=== PATIENT | male | born 1960 | race African-American/Black ===

== ENCOUNTER 2019-02-09 07:21 | Inpatient (IN) | payer OTHER ==
[~2019-02-09] VITALS: Ht 175.3 cm; Wt 113.2 kg
[~2019-02-09 07:21] MED LIST: CAPT12.52 PO; CARV6.2551 PO; FURO20TA3 PO
[2019-02-09 08:21] LABS: Basophils # (auto) 0 uL; Basophils % (auto) 0.8 % (0.0-2.0); Eosinophils # (auto) 0.3 uL; Eosinophils % (auto) 5.6 % (0.0-7.0); Hematocrit 42.7 % (41.0-53.0); Hemoglobin 14.1 g/dL (13.5-17.5); Lymphocytes % (auto) 19.4 % (10.0-50.0); Mean Corpuscular Hemoglobin 28.2 pg (28.0-32.0); Mean Corpuscular Hgb Conc. 33.1 g/dL (32.0-36.0); Mean Corpuscular Volume 85.3 fL (80.0-100.0); Monocytes # (auto) 0.5 uL; Monocytes % (auto) 10.9 % (0.0-12.0); Neutrophils # (auto) 3.1 uL; Neutrophils % (auto) 63.3 % (37.0-80.0); Platelet Count (auto) 269 10^3/uL (140-450); Red Blood Cells 5.01 10^6/uL (4.5-5.90); Red Cell Distribution Width 13.8 % (11.8-14.3); White Blood Cell 4.9 10^3/uL (4.4-10.8)
[2019-02-09 08:36] LABS: INR 0.96 (0.9-1.15); Partial Thromboplastin Time 21.6 sec (23.78-33.04); Prothrombin Time 10.3 sec (9.27-12.13)
[2019-02-09 08:41] LABS: Albumin 3.6 g/dL (3.4-5.0); BUN/Creatinine Ratio 13.9; Magnesium 2.2 mg/dL (1.6-2.6); Potassium 4.3 mmol/L (3.5-5.1)
[2019-02-09 08:46] LABS: Bilirubin, Total 0.4 mg/dL (0.2-1.0); Total Protein 7.9 g/dL (6.4-8.2)
[2019-02-09] MEDS ORDERED: SODIUM CHLORIDE 0.9% 1,000 ML IV ONE (08:46)
[2019-02-09] MEDS ORDERED: ASPirin 81 mg TAB PO ONE (09:00)
[2019-02-09] MEDS ORDERED: ONDANSETRON HCL 4 MG/2 ML VIAL IV ONE (10:30)
[2019-02-09] MEDS ORDERED: MORPHINE SULF INJ 2 MG/ML SYRINGE 1ML IV ONE (10:30)
[2019-02-09] MEDS ORDERED: IOHEXOL 350 MG/ML 100ML IJ ONE (11:31)
[2019-02-09] MEDS ORDERED: NITROGLYCERIN 0.4 MG SL TAB SL PRN (12:30)
[2019-02-09] MEDS ORDERED: ONDANSETRON HCL 4 MG/2 ML VIAL IV PRN (12:30)
[2019-02-09] MEDS ORDERED: HYDROcodone-ACET 5/325MG TAB PO PRN (12:30)
[2019-02-09] MEDS ORDERED: ACETAMINOPHEN 500 MG TAB PO PRN (12:30)
[2019-02-09] MEDS ORDERED: ENOXAPARIN SOD 100 MG/1 ML SYRINGE SC ONE (12:30)
[2019-02-09] MEDS ORDERED: NITROGLYCERIN 0.4MG/HR TOPICAL PATCH TD ONE (12:30)
[2019-02-09] MEDS ORDERED: MORPHINE SULF INJ 2 MG/ML SYRINGE 1ML IV PRN (12:30)
[2019-02-09] MEDS ORDERED: hydrALAZINE HCL 20 MG/ML VL IV PRN (12:30)
[2019-02-09 14:00] VITALS: BP 126/85
--- NOTE | 2019-02-09 14:00 | NUR ---
Telemetry admit from ER SANAOTILIA admitted to Telemetry unit after SBAR received. Patient oriented to MAURA IBARRA, primary RN, unit, room, bed, and unit policies regarding patient care and visiting hours. Patient now on continuous telemetry monitoring, tele box # 25 and telemetry reading on arrival to unit is . Patient placed on bedside oxygen, weighed by bed scale and encouraged to call if they need something. All questions and concerns addressed, patient verbalized understanding.
--- NOTE | 2019-02-09 14:05 | NUR ---
Shahbaz ENRIQUE, made aware of Troponin 1.05. Will continue to monitor.
[2019-02-09] MEDS ORDERED: NITR0.4S29 SL (14:45)
[2019-02-09] MEDS ORDERED: SIMV-13 PO (14:45)
[2019-02-09] MEDS ORDERED: CLOP75TA28 PO (14:45)
[2019-02-09] MEDS ORDERED: SERT-274 PO (14:45)
[2019-02-09] MEDS ORDERED: CAR125T PO (14:45)
[2019-02-09] MEDS ORDERED: ASPI81TA27 PO (14:45)
[2019-02-09] MEDS ORDERED: LISI-275 PO (14:45)
[2019-02-09 17:07] VITALS: BP 97/49
[2019-02-09 17:43] VITALS: BP 97/49
--- NOTE | 2019-02-09 19:55 | NUR ---
assumed care, pt. awake, pt. on cpap, no c/o pain, no sob.
[2019-02-09] MEDS: MORPHINE SULF INJ 2 MG/ML SYRINGE 1ML IV PRN (20:47)
[2019-02-09] MEDS: ATORVASTATIN 20 MG TAB PO SCH (21:20)
[2019-02-09] MEDS: CARVEDILOL 3.125 MG TAB PO SCH (21:20)
[2019-02-09 22:00] VITALS: BP 102/59
[2019-02-10] MEDS: MORPHINE SULF INJ 2 MG/ML SYRINGE 1ML IV PRN (03:57)
[2019-02-10 05:14] LABS: Basophils # (auto) 0 uL; Basophils % (auto) 0.6 % (0.0-2.0); Eosinophils # (auto) 0.2 uL; Eosinophils % (auto) 4.5 % (0.0-7.0); Hematocrit 41.5 % (41.0-53.0); Hemoglobin 14.1 g/dL (13.5-17.5); Lymphocytes # (auto) 0.9 uL; Lymphocytes % (auto) 17.3 % (10.0-50.0); Mean Corpuscular Hgb Conc. 33.9 g/dL (32.0-36.0); Mean Corpuscular Volume 85.4 fL (80.0-100.0); Monocytes # (auto) 0.5 uL; Monocytes % (auto) 9.2 % (0.0-12.0); Neutrophils # (auto) 3.4 uL; Neutrophils % (auto) 68.4 % (37.0-80.0); Platelet Count (auto) 276 10^3/uL (140-450); Red Blood Cells 4.86 10^6/uL (4.5-5.90); Red Cell Distribution Width 13.7 % (11.8-14.3)
[2019-02-10 05:29] LABS: INR 0.94 (0.9-1.15); Partial Thromboplastin Time 25.8 sec (23.64-32.05); Prothrombin Time 10.2 sec (9.06-12.60)
[2019-02-10 05:39] LABS: Calcium 8.9 mg/dL (8.5-10.1); Potassium 4.3 mmol/L (3.5-5.1)
[2019-02-10 05:45] LABS: BUN/Creatinine Ratio 14.8
[2019-02-10 06:16] VITALS: BP 118/83
--- NOTE | 2019-02-10 07:20 | NUR ---
Opening Shift Note Assumed care of patient, awake and alert. No S/S of distress/SOB or pain. Instructed on POC and to call for assist PRN, will continue to monitor for changes Q1hr and PRN.
[2019-02-10 08:00] VITALS: BP 100/50
--- NOTE | 2019-02-10 08:15 | NUR ---
PT FOUND OFF CPAP AND ON RA. PT IS AWAKE, ALERT AND ORIENTED. 95% O2 SATS, HR 63 BPM, RR18, BS ARE CLEAR TO AUSCULTATION. SKIN IS INTACT.PT ESTATES HE USES CPAP AT HOME. NO SOB OR ANY OTHER RESPIRATORY DISTRESS NOTED. WILL CONTINUE TO MONITOR PT.
[2019-02-10 09:00] VITALS: BP 100/50
[2019-02-10] MEDS: CARVEDILOL 3.125 MG TAB PO SCH ×2 (10:00→21:14)
[2019-02-10] MEDS: LISINOPRIL 10 MG TAB PO SCH (10:00)
[2019-02-10] MEDS: ASPirin-EC 81 mg tab PO SCH (10:11)
[2019-02-10] MEDS: CLOPIDOGREL BISULFATE 75 MG TAB PO SCH (10:11)
[2019-02-10] MEDS: NITROGLYCERIN 0.4MG/HR TOPICAL PATCH TD SCH (10:20)
--- NOTE | 2019-02-10 11:50 | NUR ---
PT'S OWN HOME CPAP , AT BEDSIDE. PT'S FAMILY BROUGHT CPAP FROM HOME. PT'S STATES SHE WAS TOLD TO "BRING CPAP FROM HOME BY THREE DIFFERENT NURSES." PT WAS INFORMED HE CAN NOT USE ANY EQUIPMENT FROM HOME. PT'S REQUESTING TO TALK TO CHARGE NURSE. CHARGE NURSE BAY GRIFFIN AND SANJUANA FORD WERE NOTIFIED. WILL CONTINUE TO MONITOR PT.
[2019-02-10 13:00] VITALS: BP 110/75
[2019-02-10] MEDS ORDERED: ENOXAPARIN SOD 120 MG/0.8 ML SYRINGE SC ONE (14:30)
--- NOTE | 2019-02-10 15:30 | NUR ---
Troponin 1.110 Dr. Burgos notified
--- NOTE | 2019-02-10 16:43 | NUR ---
Spoke with patient and his about use of home respiratory machine. Both notified of hospital policy against use of home machine. Both verbalize understanding and continue to refuse to release said machine at this time.
[2019-02-10 17:02] VITALS: BP 119/56
--- NOTE | 2019-02-10 19:15 | NUR ---
assumed care, pt. awake, no c/o pain, no sob.
[2019-02-10] MEDS: ATORVASTATIN 20 MG TAB PO SCH (21:14)
[2019-02-10 22:00] VITALS: BP 133/98
--- NOTE | 2019-02-10 22:35 | NUR ---
WALKED INTO PT'S ROOM @ THIS TIME FOR CPAP PLACEMENT. FOUND PT ON HIS HOME CPAP MACHINE. STATES HE DOES NOT WANT TO WEAR THE HOSPITAL'S CPAP MACHINE. PT IS AWARE OF HOSPITAL POLICY. CLIFTON JOHNSON MADE AWARE. PT IS ON CONT. PULSE-OX MONITORING, SPO2 95% AND HR 79. NO DISTRESS NOTED.
--- NOTE | 2019-02-10 23:07 | NUR ---
PT IS ON HIS HOME CPAP, MANAGEMENT AWARE. Addendum: 02/10/19 at 2309 by DANA LANDA RT RT Amended: Links added.
--- NOTE | 2019-02-10 23:10 | NUR ---
pt. using his on home cpap machine, we have a policy that pt. is not allowed to use his own machine, wendy Lemus talked to pt. regarding the policy and explained to pt. as per pt. he spoke to wendy philippe about this, and jose martin spoke to manuel.
--- NOTE | 2019-02-10 23:15 | NUR ---
CPAP use Spoke to patient regarding his use of own cpap machine, explained to pt the risks of using his own cpap machine without biomed approval. Veronica RN and RT also spoke to pt regarding hospital policy on use of own equipment. Per pt, Janeth LAZO spoke to him and then spoke to Orin LAZO director regarding this matter today. reactor fueling supervisor Eladio also aware.
--- NOTE | 2019-02-10 23:30 | NUR ---
as per rt, pt. refused to use our own cpap machine.
--- NOTE | 2019-02-10 23:30 | NUR ---
I WAS PAGED TO PT'S ROOM REGARDING PT BEING WILLING TO BE PLACED ON OUR CPAP MACHINE. PT DENIES EVER AGREEING TO THAT. STATES HE SPOKE WITH RN DIRECTOR CHEN AND CHEN STATED IT WAS FINE FOR HIM TO USE HIS OWN MACHINE.
--- NOTE | 2019-02-11 00:15 | NUR ---
gas meter repair supervisor Eladio talk to pt. patient agreed to use his own mask, will endorsed to rn in am, to bring the cpap machine to biomed to check up the his cpap machine, so that the pt. can use it here.
[2019-02-11 06:02] LABS: Basophils # (auto) 0 uL; Basophils % (auto) 0.5 % (0.0-2.0); Eosinophils # (auto) 0.2 uL; Eosinophils % (auto) 5.5 % (0.0-7.0); Hematocrit 40.8 % (41.0-53.0); Hemoglobin 13.9 g/dL (13.5-17.5); Lymphocytes % (auto) 23.5 % (10.0-50.0); Mean Corpuscular Hemoglobin 28.9 pg (28.0-32.0); Mean Corpuscular Volume 85.1 fL (80.0-100.0); Monocytes # (auto) 0.5 uL; Monocytes % (auto) 11.4 % (0.0-12.0); Neutrophils # (auto) 2.5 uL; Neutrophils % (auto) 59.1 % (37.0-80.0); Nucleated Red Blood Cells % 0.1 %; Platelet Count (auto) 269 10^3/uL (140-450); Red Blood Cells 4.79 10^6/uL (4.5-5.90); Red Cell Distribution Width 13.6 % (11.8-14.3); White Blood Cell 4.3 10^3/uL (4.4-10.8)
[2019-02-11 06:19] VITALS: BP 126/84
[2019-02-11 06:22] LABS: BUN/Creatinine Ratio 16.5; Calcium 9.2 mg/dL (8.5-10.1); Magnesium 2.4 mg/dL (1.6-2.6); Potassium 4.2 mmol/L (3.5-5.1)
--- NOTE | 2019-02-11 07:00 | NUR ---
lab. pt. trop- 0.517, will paged hospitalist.
--- NOTE | 2019-02-11 07:10 | NUR ---
Troponin 0.517 Received call back from hospitalist. aware.
[2019-02-11] MEDS ORDERED: LIDOCAINE 2%HCL (LOCAL ANESTH.) INJ 20ML MDV ONE (07:12)
[2019-02-11] MEDS ORDERED: IODIXANOL 320MG/ML 100ML BTL IV ONE ×2 (07:13→08:13)
--- NOTE | 2019-02-11 07:40 | NUR ---
Mattress Weaver Patient transferred to [facility] for heart cath
[2019-02-11 08:00] VITALS: BP 130/89
[2019-02-11] MEDS ORDERED: HEPARIN SODIUM (PORCINE) 5000 UNITS/ML 1ML VIAL ONE (08:01)
[2019-02-11] MEDS ORDERED: ANGIOMAX 250 MG VIAL IV ONE (08:01)
[2019-02-11] MEDS ORDERED: VERAPAMIL 2.5MG/ML INJ 2ML VIAL IV ONE (08:02)
[2019-02-11] MEDS ORDERED: SODIUM CHL 0.9% 50 ML ONE (08:03)
[2019-02-11] MEDS ORDERED: MIDAZOLAM HCL 1MG/1ML-2 ML VIAL ONE (08:03)
[2019-02-11] MEDS ORDERED: fentaNYL CITRATE 100 MCG/2 ML VL ONE ×2 (08:03→08:59)
[2019-02-11] MEDS ORDERED: TICAGRELOR 90 MG TAB ONE ×2 (08:28→09:13)
[2019-02-11] MEDS ORDERED: ASPirin 325 MG TAB ONE (08:28)
[2019-02-11 09:00] VITALS: BP 128/89
[2019-02-11] MEDS ORDERED: fentaNYL CITRATE 100 MCG/2 ML VL IV ONE (09:15)
[2019-02-11] MEDS ORDERED: TICAGRELOR 90 MG TAB PO ONE (09:30)
[2019-02-11] MEDS: ASPirin-EC 81 mg tab PO SCH (09:30)
[2019-02-11] MEDS: NITROGLYCERIN 0.4MG/HR TOPICAL PATCH TD SCH (09:46)
[2019-02-11] MEDS ORDERED: NITROGLYCERIN 50MG/250ML 250 ML IV SCH (10:00)
[2019-02-11] MEDS: CLOPIDOGREL BISULFATE 75 MG TAB PO SCH (10:00)
[2019-02-11] MEDS ORDERED: NITROGLYCERIN 50MG/250ML 250 ML IV ONE (10:19)
[2019-02-11] MEDS ORDERED: EPTIFIBATIDE DRIP(0.75MG/ML) 100 ML IV ONE ×2 (10:20→15:17)
[2019-02-11] MEDS: EPTIFIBATIDE DRIP(0.75MG/ML) 100 ML IV SCH ×3 (10:40→21:22)
[2019-02-11] MEDS: LISINOPRIL 10 MG TAB PO SCH (11:00)
[2019-02-11] MEDS: CARVEDILOL 3.125 MG TAB PO SCH ×2 (11:00→22:16)
[2019-02-11 16:30] VITALS: BP 127/81
--- NOTE | 2019-02-11 16:45 | NUR ---
Patient in room 263 from [facility]. Patient on the monitor. No S/S of SOB/CP/pain or distress noted. IC right forearm 20G and left forearm 22G saline locked, patent, clean dry, and intact. Dressing left wrist clean, dry, and intact, not bleeding from the site noted. Bed locked and in the lowest position, side rails up x2, call light with in reach. Instructed on POC. Family at bedside. Will continue to monitor.
--- NOTE | 2019-02-11 18:00 | NUR ---
Patient sitting up in bed eating dinner independently. Patient denies any chest pain or SOB at this time. Will continue to monitor.
--- NOTE | 2019-02-11 18:30 | NUR ---
Patient resting at this time. Report to be given to manager shift RN. Will continue to monitor.
--- NOTE | 2019-02-11 19:15 | NUR ---
OPENING SHIFT RECEIVED REPORT FROM DAY SHIFT RN. ASSUMED CARE OF PATIENT. PATIENT CURRENTLY IN BED WATCHING TV WITH NO SIGNS OR SYMPTOMS OF SOB, PAIN OR DISTRESS. LEFT WRIST DRESSING S/P SUSPENSION CORD TIER - CLEAN/DRY/INTACT. CURRENTLY ON ROOM AIR, 02 SAT - 98%. UPDATED PATIENT ON PLAN OF CARE. BED IN LOWEST POSITION, SIDE RAILS UP X2, CALL LIGHT WITHIN REACH. WILL CONTINUE TO MONITOR.
[2019-02-11 19:50] VITALS: BP 125/73
--- NOTE | 2019-02-11 20:33 | NUR ---
SPOKE WITH PHARMACY IN REGARDS TO [facility].
[2019-02-11] MEDS ORDERED: CLOPIDOGREL BISULFATE 75 MG TAB PO ONE (20:45)
--- NOTE | 2019-02-11 21:50 | NUR ---
IV REMOVAL REMOVED RIGHT FOREARM IV. CATHETER INTACT. PATIENT TOLERATED WELL. Addendum: 02/11/19 at 2230 by GIULIA SIERRA RN RN IV REMOVAL DUE TO INFILTRATION.
--- NOTE | 2019-02-11 22:10 | NUR ---
IV INSERTION INSERTED 20G LEFT HAND. DRESSING - CLEAN/DRY/INTACT. PATIENT TOLERATED WELL.
[2019-02-11] MEDS: ATORVASTATIN 20 MG TAB PO SCH (22:16)
--- NOTE | 2019-02-11 23:25 | NUR ---
ROUNDS PATIENT IN BED SLEEPING WITH NO SIGNS OR SYMPTOMS OF SOB, PAIN OR DISTRESS. CURRENTLY USING THE CPAP, 02 SAT - 95%. BED IN LOWEST POSITION, SIDE RAILS UP X2, CALL LIGHT WITHIN REACH. WILL CONTINUE TO MONITOR.
[2019-02-12] VITALS (7 sets, daily range): BP systolic 117–127; BP diastolic 73–91
[2019-02-12] MEDS: EPTIFIBATIDE DRIP(0.75MG/ML) 100 ML IV SCH ×2 (02:23→08:40)
--- NOTE | 2019-02-12 03:54 | NUR ---
MORNING CARE PATIENT REFUSED MORNING CARE AT THIS TIME. STATES, " ID RATHER DO IT LATER IN THE MORNING." LEFT MORNING CARE MATERIALS AND LINEN AT BEDSIDE.
[2019-02-12 04:50] LABS: Basophils # (auto) 0 uL; Basophils % (auto) 0.5 % (0.0-2.0); Eosinophils # (auto) 0.3 uL; Eosinophils % (auto) 4.5 % (0.0-7.0); Hematocrit 42.2 % (41.0-53.0); Hemoglobin 14.2 g/dL (13.5-17.5); Lymphocytes # (auto) 1.1 uL; Lymphocytes % (auto) 14.4 % (10.0-50.0); Mean Corpuscular Hemoglobin 29.1 pg (28.0-32.0); Mean Corpuscular Hgb Conc. 33.7 g/dL (32.0-36.0); Mean Corpuscular Volume 86.4 fL (80.0-100.0); Monocytes # (auto) 0.8 uL; Monocytes % (auto) 10.7 % (0.0-12.0); Neutrophils # (auto) 5.2 uL; Neutrophils % (auto) 69.9 % (37.0-80.0); Nucleated Red Blood Cells % 0.1 %; Platelet Count (auto) 254 10^3/uL (140-450); Red Blood Cells 4.88 10^6/uL (4.5-5.90); Red Cell Distribution Width 13.8 % (11.8-14.3); White Blood Cell 7.4 10^3/uL (4.4-10.8)
[2019-02-12 05:11] LABS: Calcium 8.9 mg/dL (8.5-10.1); Potassium 4.1 mmol/L (3.5-5.1)
--- NOTE | 2019-02-12 06:35 | NUR ---
END OF SHIFT PATIENT IN BED SLEEPING WITH NO SIGNS OR SYMPTOMS OF SOB, PAIN OR DISTRESS. CURRENTLY ON CPAP, 02 SAT - 96%. LEFT WRIST DRESSING STATUS POST HEART CATH - CLEAN/DRY/INTACT WITH NO SIGNS OF HEMATOMA. BED IN LOWEST POSITION, SIDE RAILS UP X2, CALL LIGHT WITHIN REACH. WILL ENDORSE CARE TO DAY SHIFT RN.
--- NOTE | 2019-02-12 08:00 | NUR ---
Opening Shift Note Assumed care of patient, awake and alert. Patient A&Ox4. Patient on the monitor. No S/S of SOB/CP/pain or distress noted. Patient denies any chest pain at this time. Patient on room air. IV right forearm 20G and right hand 20G saline locked, patent, clean dry, and intact. Dressing left wrist clean, dry, and intact, not bleeding from the site noted. Bed locked and in the lowest position, side rails up x2, call light with in reach. Instructed on POC. Instructed on POC and to call for assist Will continue to monitor.
--- NOTE | 2019-02-12 08:12 | NUR ---
Respiratory note: PT FOUND TO BE OFF CPAP. NO DISTRESS NOTED. HR 77 RR 14 SPO2 96% ON RA. PT AND RN AWARE TO HAVE RT PAGED IF NEEDED.
--- NOTE | 2019-02-12 08:30 | NUR ---
Patient had a bowel movement on bedside commode. Medium formed brown stool noted. Patient now sitting up in bed eating breakfast independently. Will continue to monitor.
--- NOTE | 2019-02-12 09:00 | NUR ---
Family at bedside.
[2019-02-12] MEDS: CLOPIDOGREL BISULFATE 75 MG TAB PO SCH (10:11)
[2019-02-12] MEDS: ASPirin-EC 81 mg tab PO SCH (10:11)
[2019-02-12] MEDS: LISINOPRIL 10 MG TAB PO SCH (10:12)
[2019-02-12] MEDS: CARVEDILOL 3.125 MG TAB PO SCH (10:12)
[2019-02-12] MEDS: NITROGLYCERIN 0.4MG/HR TOPICAL PATCH TD SCH (10:13)
--- NOTE | 2019-02-12 11:00 | NUR ---
Dr. Burgos at bedside.
[2019-02-12] MEDS ORDERED: SIMV-13 PO (12:04)
[2019-02-12] MEDS ORDERED: CLOP75TA28 PO (12:04)
[2019-02-12] MEDS ORDERED: LISI-275 PO (12:04)
[2019-02-12] MEDS ORDERED: ASPI81TA27 PO (12:04)
[2019-02-12] MEDS ORDERED: FURO20TA3 PO (12:04)
[2019-02-12] MEDS ORDERED: CAR125T PO (12:04)
--- NOTE | 2019-02-12 12:30 | NUR ---
Patient sitting up in bed eating lunch. Preparing patient Discharge. Will continue to monitor.
--- NOTE | 2019-02-12 13:10 | NUR ---
Discharge note: Patient IV's taken out left forearm 22G and left hand 20G catheter intact, pressure dressing placed. ID bands removed. Belongings placed in bags and given to patient and patient's . All stickers and monitor leads taken off patient. Discharge instructions and prescriptions given to patient. Patient refused wheel chair. No S/S of SOB or distress noted upon discharge. Follow up appointments made.
== END 2019-02-12 16:44 | disposition home or self-care (01) | DRG 246 ==
LOC: ER 07:21 → TELE 12:18 → TELE-WESTW 13:37 → DOU IN ICU 02-11 16:40
PROVIDERS: ADMIT Nurse Practitioner Acute Care; ATTEND Internal Medicine
PROC: 5A09357 Assistance with Respiratory Ventilation, Less than 24 Consecutive Hours, Continuous Positive Airway Pressure (ICD-10-PCS; 2019-02-09)
PROC: 027034Z Dilation of Coronary Artery, One Artery with Drug-eluting Intraluminal Device, Percutaneous Approach (ICD-10-PCS; principal; 2019-02-11)
PROC: 4A023N7 Measurement of Cardiac Sampling and Pressure, Left Heart, Percutaneous Approach (ICD-10-PCS; 2019-02-11)
PROC: B2111ZZ Fluoroscopy of Multiple Coronary Arteries using Low Osmolar Contrast (ICD-10-PCS; 2019-02-11)
PROC: 5A09357 Assistance with Respiratory Ventilation, Less than 24 Consecutive Hours, Continuous Positive Airway Pressure (ICD-10-PCS; 2019-02-11)
DX: I21.4 Non-ST elevation (NSTEMI) myocardial infarction (principal); I50.43 Acute on chronic combined systolic (congestive) and diastolic (congestive) heart failure; I42.0 Dilated cardiomyopathy; I11.0 Hypertensive heart disease with heart failure; E78.5 Hyperlipidemia, unspecified; E66.9 Obesity, unspecified; I77.1 Stricture of artery; I25.10 Atherosclerotic heart disease of native coronary artery without angina pectoris; I25.5 Ischemic cardiomyopathy; I25.2 Old myocardial infarction; Z82.49 Family history of ischemic heart disease and other diseases of the circulatory system; Z83.3 Family history of diabetes mellitus; Z95.5 Presence of coronary angioplasty implant and graft; Z95.810 Presence of automatic (implantable) cardiac defibrillator
CPT/HCPCS: 36415; 71045; 71275; 80048; 80053; 80061; 83036; 83735; 83880; 84443; 84484; 85025; 85379; 85610; 85730; 86141; 92928; 93005; 93306; 93458; 94660; 94761; 94762; 96372; 96374; 96375; C1887; G0378; J2250; J2405; Q9967

== ENCOUNTER 2020-03-20 19:41 | Emergency (ER) | payer OTHER ==
[~2020-03-20] VITALS: Ht 175.3 cm; Wt 112.5 kg
[~2020-03-20 19:41] MED LIST changes: +ASPI-404 PO; -CAPT12.52 PO; +CAR125T PO; -CARV6.2551 PO; +CLOP75TA28 PO; +LISI-275 PO; +NITR0.4S29 SL; +SERT-274 PO; +SIMV-13 PO
[2020-03-20 19:50] VITALS: BP 142/82
[2020-03-20] MEDS ORDERED: ASPirin 81 mg TAB PO ONE (21:00)
[2020-03-20 21:01] LABS: Basophils # (auto) 0 10 ^3/uL (0-0.2); Basophils % (auto) 0.2 % (0.0-2.0); Eosinophils # (auto) 0.4 10 ^3/uL (0-0.8); Eosinophils % (auto) 5.4 % (0.0-7.0); Hematocrit 44.4 % (41.0-53.0); Hemoglobin 14.8 g/dL (13.5-17.5); Lymphocytes # (auto) 0.8 10 ^3/uL (0.4-5.4); Lymphocytes % (auto) 12.8 % (10.0-50.0); Mean Corpuscular Hemoglobin 28.9 pg (28.0-32.0); Mean Corpuscular Hgb Conc. 33.3 g/dL (32.0-36.0); Mean Corpuscular Volume 86.8 fL (80.0-100.0); Monocytes # (auto) 0.7 10 ^3/uL (0-1.3); Monocytes % (auto) 10.5 % (0.0-12.0); Neutrophils # (auto) 4.7 10 ^3/uL (1.6-8.6); Neutrophils % (auto) 71.1 % (37.0-80.0); Nucleated Red Blood Cells % 0.1 %; Platelet Count (auto) 244 10^3/uL (140-450); Red Blood Cells 5.12 10^6/uL (4.5-5.90); Red Cell Distribution Width 14.1 % (11.8-14.3); White Blood Cell 6.6 10^3/uL (4.4-10.8)
[2020-03-20 21:14] LABS: INR 1.04 (0.9-1.15); Partial Thromboplastin Time 26.2 sec (23.64-32.05)
[2020-03-20 21:21] LABS: Albumin 3.7 g/dL (3.4-5.0); BUN/Creatinine Ratio 12.7; Calcium 8.9 mg/dL (8.5-10.1); Potassium 3.8 mmol/L (3.5-5.1)
[2020-03-20 21:26] LABS: Bilirubin, Total 0.8 mg/dL (0.2-1.0)
== END 2020-03-20 21:10 | disposition left against medical advice (07) ==
LOC: ER 19:45
DX: R07.9 Chest pain, unspecified (principal); E78.5 Hyperlipidemia, unspecified; I10 Essential (primary) hypertension; I25.2 Old myocardial infarction; F17.210 Nicotine dependence, cigarettes, uncomplicated; Z95.810 Presence of automatic (implantable) cardiac defibrillator
CPT/HCPCS: 36415; 71045; 80053; 83735; 83880; 84484; 85025; 85610; 85730; 93005

== ENCOUNTER 2020-09-06 19:28 | Emergency (ER) | payer OTHER ==
[~2020-09-06] VITALS: Ht 175.3 cm; Wt 113.4 kg
[~2020-09-06 19:28] MED LIST changes: -ASPI-404 PO; +ASPI-543 PO
[2020-09-06 21:48] LABS: Basophils # (auto) 0 10 ^3/uL (0-0.2); Basophils % (auto) 0.6 % (0.0-2.0); Eosinophils # (auto) 0.3 10 ^3/uL (0-0.8); Eosinophils % (auto) 5.3 % (0.0-7.0); Hematocrit 43.7 % (41.0-53.0); Hemoglobin 14.8 g/dL (13.5-17.5); Lymphocytes % (auto) 18.4 % (10.0-50.0); Mean Corpuscular Hemoglobin 29.4 pg (28.0-32.0); Mean Corpuscular Volume 86.5 fL (80.0-100.0); Monocytes # (auto) 0.7 10 ^3/uL (0-1.3); Monocytes % (auto) 12.4 % (0.0-12.0); Neutrophils # (auto) 3.4 10 ^3/uL (1.6-8.6); Neutrophils % (auto) 63.3 % (37.0-80.0); Nucleated Red Blood Cells % 0.1 %; Platelet Count (auto) 285 10^3/uL (140-450); Red Blood Cells 5.05 10^6/uL (4.5-5.90); Red Cell Distribution Width 13.7 % (11.8-14.3); White Blood Cell 5.4 10^3/uL (4.4-10.8)
[2020-09-06 22:02] LABS: Albumin 3.5 g/dL (3.4-5.0); Calcium 8.6 mg/dL (8.5-10.1); Magnesium 2.5 mg/dL (1.6-2.6); Potassium 4.4 mmol/L (3.5-5.1)
[2020-09-06 22:05] LABS: BUN/Creatinine Ratio 15.1; Bilirubin, Total 0.4 mg/dL (0.2-1.0); Total Protein 7.7 g/dL (6.4-8.2)
[2020-09-06 22:09] LABS: INR 1.02 (0.9-1.15); Partial Thromboplastin Time 24.8 sec (23.0-31.2)
[2020-09-07 02:05] VITALS: BP 114/73
== END 2020-09-07 02:19 | disposition home or self-care (01) ==
LOC: EDBD 19:28 → ER 19:28
DX: R07.89 Other chest pain (principal); I10 Essential (primary) hypertension; E78.5 Hyperlipidemia, unspecified; Z87.891 Personal history of nicotine dependence; Z79.82 Long term (current) use of aspirin; Z79.899 Other long term (current) drug therapy; I25.10 Atherosclerotic heart disease of native coronary artery without angina pectoris
CPT/HCPCS: 36415; 71045; 80053; 83735; 83880; 84443; 84484; 85025; 85379; 85610; 85730; 93005

== ENCOUNTER 2022-03-06 06:57 | Day surgery (SDC) | payer OTHER ==
[~2022-03-06] VITALS: Ht 175.3 cm; Wt 117.9 kg
[~2022-03-06 06:57] MED LIST changes: -CAR125T PO; +CARV25TA55 PO; -LISI-275 PO; +SACU1TAB7 PO; -SERT-274 PO; +SILD100T57 PO
[2022-03-06] MEDS ORDERED: HEPARIN IN NS 1000Units/500mL 1,500 ML ONE (07:23)
[2022-03-06] MEDS ORDERED: IODIXANOL 320MG/ML 100ML BTL IV ONE (07:23)
[2022-03-06] MEDS ORDERED: LIDOCAINE 2%HCL (LOCAL ANESTH.) INJ 10ml MDV ONE (07:23)
[2022-03-06] MEDS ORDERED: ANGIOMAX 250 MG VIAL IV ONE (07:48)
[2022-03-06] MEDS ORDERED: fentaNYL CITRATE 100 MCG/2 ML VL ONE (07:49)
[2022-03-06] MEDS ORDERED: HEPARIN SODIUM (PORCINE) 5000 UNITS/ML 1ML VIAL ONE (07:49)
[2022-03-06] MEDS ORDERED: VERAPAMIL 2.5MG/ML INJ 2ML VIAL IV ONE (07:49)
[2022-03-06] MEDS ORDERED: SODIUM CHL 0.9% 0 ML ONE (07:49)
[2022-03-06] MEDS ORDERED: MIDAZOLAM HCL 2MG/2ML 2ml VIAL (1mg/ml) ONE (07:49)
== END 2022-03-06 11:00 | disposition home or self-care (01) ==
LOC: CATH 06:57
PROVIDERS: ATTEND Internal Medicine
DX: I25.119 Atherosclerotic heart disease of native coronary artery with unspecified angina pectoris (principal); I47.2 Ventricular tachycardia; I50.9 Heart failure, unspecified; Z95.5 Presence of coronary angioplasty implant and graft; G47.30 Sleep apnea, unspecified; F41.9 Anxiety disorder, unspecified; F32.A Depression, unspecified; Z82.49 Family history of ischemic heart disease and other diseases of the circulatory system; Z83.3 Family history of diabetes mellitus; Z20.822 Contact with and (suspected) exposure to COVID-19
CPT/HCPCS: 93005; 93458; C1887; C1894; J1644; J2001; J2250; J3010; J7030; Q9967; U0003; 99152

== ENCOUNTER 2022-11-30 09:01 | Inpatient (IN) | payer OTHER ==
[~2022-11-30] VITALS: Ht 175.3 cm; Wt 119.5 kg
[2022-11-30 09:23] LABS: Basophils # (auto) 0 10 ^3/uL (0-0.2); Basophils % (auto) 0.4 % (0.0-2.0); Eosinophils # (auto) 0.2 10 ^3/uL (0-0.8); Hematocrit 41.4 % (41.0-53.0); Lymphocytes # (auto) 0.3 10 ^3/uL (0.4-5.4); Lymphocytes % (auto) 7.4 % (10.0-50.0); Mean Corpuscular Hemoglobin 29.3 pg (28.0-32.0); Mean Corpuscular Hgb Conc. 33.9 g/dL (32.0-36.0); Mean Corpuscular Volume 86.3 fL (80.0-100.0); Monocytes # (auto) 0.4 10 ^3/uL (0-1.3); Monocytes % (auto) 9.6 % (0.0-12.0); Neutrophils # (auto) 3.1 10 ^3/uL (1.6-8.6); Neutrophils % (auto) 76.6 % (37.0-80.0); Nucleated Red Blood Cells % 0.5 %; Red Cell Distribution Width 14.8 % (11.8-14.3); White Blood Cell 4.1 10^3/uL (4.4-10.8)
[2022-11-30 09:41] LABS: INR 1.03 (0.9-1.15); Partial Thromboplastin Time 26.7 sec (24.6-33.4)
[2022-11-30 09:49] LABS: BUN/Creatinine Ratio 12.7; Bilirubin, Total 0.9 mg/dL (0.2-1.0); Calcium 9.3 mg/dL (8.5-10.1); Magnesium 2.2 mg/dL (1.6-2.6); Potassium 4.2 mmol/L (3.5-5.1); Total Protein 7.7 g/dL (6.4-8.2)
[2022-11-30 12:16] LABS: Urine WBC None Seen /hpf (0 - 3)
[2022-11-30 12:31] LABS: Urine Bacteria NONE SEEN /hpf (None Seen); Urine Blood Negative /uL (Negative); Urine Specific Gravity 1.006 (1.001-1.035)
[2022-11-30] MEDS ORDERED: ASPirin 325 MG TAB PO ONE (12:45)
[2022-11-30] MEDS ORDERED: ACETAMINOPHEN 325 MG TAB PO PRN (13:00)
[2022-11-30] MEDS ORDERED: ALBUTEROL SULF 2.5 MG/0.5ML(0.5%) NEB SOLN NEB PRN (13:00)
[2022-11-30] MEDS ORDERED: NITROGLYCERIN 0.4 MG SL TAB SL PRN (13:00)
[2022-11-30 13:30] LABS: Cholesterol 109 mg/dL (< 200); HDL Cholesterol 37 mg/dL (40-59); LDL Cholesterol 62 mg/dL (< 100); Triglycerides 123 mg/dL (< 150)
[2022-11-30] MEDS ORDERED: ENOXAPARIN SOD 150 MG/1 ML SYRINGE SC ONE (13:45)
[2022-11-30] MEDS: SODIUM CHLORIDE 0.9% 1,000 ML IV SCH (13:58)
[2022-11-30] MEDS: hydrALAZINE HCL 20 MG/ML VL IV PRN (17:24)
[2022-11-30 19:06] VITALS: BP 156/97
[2022-11-30] MEDS: MORPHINE SULFATE INJ 2 MG/ml SYRG IV PRN (20:27)
[2022-11-30] MEDS: Sacubitril-Valsartan (Entresto 49-51 mg) TABLET PO SCH (22:00)
[2022-11-30] MEDS: ATORVASTATIN 20 MG TAB PO SCH (22:44)
[2022-11-30] MEDS: CARVEDILOL 12.5 MG TAB PO SCH (22:46)
[2022-11-30] MEDS: ENOXAPARIN SOD 100 MG/1 ML SYRINGE SC SCH (22:47)
[2022-12-01] VITALS (8 sets, daily range): BP systolic 129–161; BP diastolic 74–98
[2022-12-01] MEDS: hydrALAZINE HCL 20 MG/ML VL IV PRN (00:06)
[2022-12-01] MEDS ORDERED: MEX150C PO (04:35)
[2022-12-01 05:04] LABS: Basophils # (auto) 0 10 ^3/uL (0-0.2); Basophils % (auto) 0.2 % (0.0-2.0); Eosinophils # (auto) 0.3 10 ^3/uL (0-0.8); Eosinophils % (auto) 6.3 % (0.0-7.0); Hematocrit 37.7 % (41.0-53.0); Lymphocytes # (auto) 0.4 10 ^3/uL (0.4-5.4); Lymphocytes % (auto) 7.9 % (10.0-50.0); Mean Corpuscular Hemoglobin 29.6 pg (28.0-32.0); Mean Corpuscular Hgb Conc. 34.4 g/dL (32.0-36.0); Mean Corpuscular Volume 85.9 fL (80.0-100.0); Monocytes # (auto) 0.5 10 ^3/uL (0-1.3); Monocytes % (auto) 10.2 % (0.0-12.0); Neutrophils # (auto) 3.7 10 ^3/uL (1.6-8.6); Neutrophils % (auto) 75.4 % (37.0-80.0); Nucleated Red Blood Cells % 0.1 %; Red Blood Cells 4.39 10^6/uL (4.5-5.90); Red Cell Distribution Width 14.8 % (11.8-14.3); White Blood Cell 4.9 10^3/uL (4.4-10.8)
[2022-12-01 05:38] LABS: Albumin 3.5 g/dL (3.4-5.0); Calcium 8.9 mg/dL (8.5-10.1); Potassium 3.7 mmol/L (3.5-5.1)
[2022-12-01 05:40] LABS: BUN/Creatinine Ratio 17.3
[2022-12-01] MEDS: SODIUM CHLORIDE 0.9% 1,000 ML IV SCH ×2 (05:40→22:20)
[2022-12-01 05:43] LABS: Bilirubin, Total 0.7 mg/dL (0.2-1.0); Total Protein 7.3 g/dL (6.4-8.2)
[2022-12-01] MEDS: Sacubitril-Valsartan (Entresto 49-51 mg) TABLET PO SCH ×2 (10:00→22:00)
[2022-12-01] MEDS: ASPirin 81 mg TAB PO SCH (10:10)
[2022-12-01] MEDS: CLOPIDOGREL BISULFATE 75 MG TAB PO SCH (10:12)
[2022-12-01] MEDS: CARVEDILOL 12.5 MG TAB PO SCH ×2 (10:12→23:19)
[2022-12-01] MEDS: FUROSEMIDE 20 MG TAB PO SCH (10:12)
[2022-12-01] MEDS: ENOXAPARIN SOD 100 MG/1 ML SYRINGE SC SCH (10:13)
[2022-12-01] MEDS ORDERED: HYDROcodone-ACET 5/325MG TAB PO PRN (11:30)
[2022-12-01] MEDS ORDERED: MORPHINE SULFATE INJ 2 MG/ml SYRG IV PRN (11:30)
[2022-12-01] MEDS ORDERED: metOLazone 5 MG TAB PO ONE (13:30)
[2022-12-01] MEDS: ATORVASTATIN 20 MG TAB PO SCH (23:15)
[2022-12-01] MEDS: MEXILETINE HYDROCHLORIDE 150 MG CAP PO SCH (23:16)
[2022-12-01] MEDS: ENOXAPARIN SOD 150 MG/1 ML SYRINGE SC SCH (23:17)
[2022-12-02] VITALS (7 sets, daily range): BP systolic 127–138; BP diastolic 79–92
[2022-12-02] MEDS: Sacubitril-Valsartan (Entresto 49-51 mg) TABLET PO SCH ×2 (10:00→21:23)
[2022-12-02] MEDS: ASPirin 81 mg TAB PO SCH (10:15)
[2022-12-02] MEDS: CARVEDILOL 12.5 MG TAB PO SCH ×2 (10:15→21:16)
[2022-12-02] MEDS: FUROSEMIDE 20 MG TAB PO SCH (10:16)
[2022-12-02] MEDS: CLOPIDOGREL BISULFATE 75 MG TAB PO SCH (10:16)
[2022-12-02] MEDS: ENOXAPARIN SOD 150 MG/1 ML SYRINGE SC SCH ×2 (10:17→21:22)
[2022-12-02] MEDS: MEXILETINE HYDROCHLORIDE 150 MG CAP PO SCH ×2 (10:17→21:15)
[2022-12-02] MEDS ORDERED: EMPAGLIFLOZIN 10 MG TAB PO ONE (12:30)
[2022-12-02] MEDS ORDERED: levoFLOXacin 500MG 100 ML IV ONE (12:45)
[2022-12-02] MEDS ORDERED: ALBUTEROL SULF 2.5 MG/0.5ML(0.5%) NEB SOLN NEB PRN (12:45)
[2022-12-02] MEDS: SODIUM CHLORIDE 0.9% 1,000 ML IV SCH (15:00)
[2022-12-02] MEDS ORDERED: FUROSEMIDE 40 MG/4 ML VIAL IV ONE (17:00)
[2022-12-02] MEDS: ATORVASTATIN 20 MG TAB PO SCH (21:15)
[2022-12-03 05:00] VITALS: BP 126/79
[2022-12-03 06:08] LABS: Basophils # (auto) 0 10 ^3/uL (0-0.2); Basophils % (auto) 0.6 % (0.0-2.0); Eosinophils # (auto) 0.3 10 ^3/uL (0-0.8); Eosinophils % (auto) 7.2 % (0.0-7.0); Hematocrit 42.2 % (41.0-53.0); Hemoglobin 14.7 g/dL (13.5-17.5); Lymphocytes # (auto) 0.4 10 ^3/uL (0.4-5.4); Lymphocytes % (auto) 11.3 % (10.0-50.0); Mean Corpuscular Hemoglobin 29.6 pg (28.0-32.0); Mean Corpuscular Hgb Conc. 34.7 g/dL (32.0-36.0); Mean Corpuscular Volume 85.2 fL (80.0-100.0); Monocytes # (auto) 0.6 10 ^3/uL (0-1.3); Monocytes % (auto) 16.2 % (0.0-12.0); Neutrophils # (auto) 2.4 10 ^3/uL (1.6-8.6); Neutrophils % (auto) 64.7 % (37.0-80.0); Nucleated Red Blood Cells % 0.4 %; Red Blood Cells 4.95 10^6/uL (4.5-5.90); Red Cell Distribution Width 14.6 % (11.8-14.3); White Blood Cell 3.7 10^3/uL (4.4-10.8)
[2022-12-03] MEDS: EMPAGLIFLOZIN 10 MG TAB PO SCH (06:28)
[2022-12-03] MEDS: SODIUM CHLORIDE 0.9% 1,000 ML IV SCH (06:31)
[2022-12-03 08:00] VITALS: BP 117/73
[2022-12-03 09:00] VITALS: BP 117/73
[2022-12-03] MEDS: Sacubitril-Valsartan (Entresto 49-51 mg) TABLET PO SCH ×2 (10:00→21:55)
[2022-12-03] MEDS ORDERED: FARXIGA 10 MG PO SCH (10:00)
[2022-12-03] MEDS: levoFLOXacin 500MG 100 ML IV SCH (10:28)
[2022-12-03] MEDS: MEXILETINE HYDROCHLORIDE 150 MG CAP PO SCH ×2 (10:29→21:54)
[2022-12-03] MEDS: CARVEDILOL 12.5 MG TAB PO SCH ×2 (10:30→21:54)
[2022-12-03] MEDS: CLOPIDOGREL BISULFATE 75 MG TAB PO SCH (10:30)
[2022-12-03] MEDS: ASPirin 81 mg TAB PO SCH (10:30)
[2022-12-03] MEDS: ENOXAPARIN SOD 150 MG/1 ML SYRINGE SC SCH ×2 (10:31→21:55)
[2022-12-03] MEDS ORDERED: FAMOTIDINE 20 MG TAB PO ONE (11:30)
[2022-12-03] MEDS: MORPHINE SULFATE INJ 2 MG/ml SYRG IV PRN (12:26)
[2022-12-03 13:00] VITALS: BP 110/60
[2022-12-03] MEDS ORDERED: DOCUSATE SOD 100 MG CAP PO PRN (13:45)
[2022-12-03 16:47] VITALS: BP 115/82
[2022-12-03] MEDS: FAMOTIDINE 20 MG TAB PO SCH (21:53)
[2022-12-03] MEDS: ATORVASTATIN 20 MG TAB PO SCH (21:54)
[2022-12-03 22:15] VITALS: BP 119/78
[2022-12-04] VITALS (7 sets, daily range): BP systolic 112–150; BP diastolic 72–86
[2022-12-04] MEDS: SODIUM CHLORIDE 0.9% 1,000 ML IV SCH ×2 (00:20→17:00)
[2022-12-04] MEDS: EMPAGLIFLOZIN 10 MG TAB PO SCH (06:06)
[2022-12-04] MEDS: Sacubitril-Valsartan (Entresto 49-51 mg) TABLET PO SCH ×2 (10:00→21:22)
[2022-12-04] MEDS: ASPirin 81 mg TAB PO SCH (10:19)
[2022-12-04] MEDS: MEXILETINE HYDROCHLORIDE 150 MG CAP PO SCH ×2 (10:19→21:14)
[2022-12-04] MEDS: levoFLOXacin 500MG 100 ML IV SCH (10:19)
[2022-12-04] MEDS: CARVEDILOL 12.5 MG TAB PO SCH ×2 (10:20→21:17)
[2022-12-04] MEDS: FAMOTIDINE 20 MG TAB PO SCH ×2 (10:20→21:14)
[2022-12-04] MEDS: CLOPIDOGREL BISULFATE 75 MG TAB PO SCH (10:20)
[2022-12-04] MEDS: ENOXAPARIN SOD 150 MG/1 ML SYRINGE SC SCH ×2 (10:21→21:17)
[2022-12-04] MEDS: ATORVASTATIN 20 MG TAB PO SCH (21:14)
[2022-12-05] MEDS: SODIUM CHLORIDE 0.9% 1,000 ML IV SCH (02:36)
[2022-12-05 05:00] VITALS: BP 138/91
[2022-12-05] MEDS: EMPAGLIFLOZIN 10 MG TAB PO SCH (06:11)
[2022-12-05 08:00] VITALS: BP 148/95
[2022-12-05] MEDS: ASPirin 81 mg TAB PO SCH (08:55)
[2022-12-05] MEDS: CLOPIDOGREL BISULFATE 75 MG TAB PO SCH (08:55)
[2022-12-05] MEDS: levoFLOXacin 500MG 100 ML IV SCH (08:55)
[2022-12-05] MEDS: FAMOTIDINE 20 MG TAB PO SCH (08:56)
[2022-12-05] MEDS: CARVEDILOL 12.5 MG TAB PO SCH (08:56)
[2022-12-05] MEDS: ENOXAPARIN SOD 150 MG/1 ML SYRINGE SC SCH (08:57)
[2022-12-05] MEDS: MEXILETINE HYDROCHLORIDE 150 MG CAP PO SCH (09:05)
[2022-12-05] MEDS: Sacubitril-Valsartan (Entresto 49-51 mg) TABLET PO SCH (10:00)
[2022-12-05] MEDS ORDERED: EMPA1TAB PO (10:58)
== END 2022-12-05 13:06 | disposition home or self-care (01) | DRG 291 ==
LOC: ER 09:01 → TELE 12:59 → TELE-WESTW 22:53 → WEST WING 12-02 13:33 → TELE-WESTW 12-02 19:27
PROVIDERS: ADMIT Nurse Practitioner Family; ATTEND Family Medicine
DX: I11.0 Hypertensive heart disease with heart failure (principal); I50.41 Acute combined systolic (congestive) and diastolic (congestive) heart failure; J18.9 Pneumonia, unspecified organism; I25.119 Atherosclerotic heart disease of native coronary artery with unspecified angina pectoris; E11.9 Type 2 diabetes mellitus without complications; E78.5 Hyperlipidemia, unspecified; Z20.822 Contact with and (suspected) exposure to COVID-19; I25.5 Ischemic cardiomyopathy; E07.9 Disorder of thyroid, unspecified; E66.01 Morbid (severe) obesity due to excess calories; Z68.39 Body mass index [BMI] 39.0-39.9, adult; Z79.02 Long term (current) use of antithrombotics/antiplatelets; Z80.42 Family history of malignant neoplasm of prostate; Z82.3 Family history of stroke; Z82.49 Family history of ischemic heart disease and other diseases of the circulatory system; Z83.3 Family history of diabetes mellitus; Z85.46 Personal history of malignant neoplasm of prostate; Z87.891 Personal history of nicotine dependence; Z95.5 Presence of coronary angioplasty implant and graft; Z95.810 Presence of automatic (implantable) cardiac defibrillator; I25.2 Old myocardial infarction; Z92.3 Personal history of irradiation
CPT/HCPCS: 36415; 71045; 71046; 71275; 80053; 80061; 81001; 83036; 83735; 83880; 84443; 84484; 85025; 85379; 85610; 85730; 87070; 87205; 87426; 93005; 93306; 94640; 96361; 96372; 96374; 99291; G0378; J1956

== ENCOUNTER 2024-12-25 06:11 | Inpatient (IN) | payer OTHER ==
[~2024-12-25] VITALS: Ht 175.3 cm; Wt 112.8 kg
[2024-12-25] VITALS (7 sets, daily range): BP systolic 140–145; BP diastolic 78–90; PULSE 64–89; RESP 18; TEMP 98; O2SAT 92–100
[~2024-12-25 06:11] MED LIST changes: +EMPA1TAB PO; +MEX150C PO; +SILD100T PO; -SILD100T57 PO; -SIMV-13 PO; +SIMV40TA18 PO
--- NOTE | 2024-12-25 06:39 | ED.PDOC ---
GI ASSESSMENT HPI Comments 64 year old male presents to the ED with a chief complaint of abdominal pain onset 2 days. Patient states he has been experiencing LLQ pain for the past 2 days as well as constipation. Pain worsens when he lays down on LT side, pain has slight relief with passing gas. He has colonoscopy and endoscopy scheduled on February 2025. PMHx CAD, CHF, MS, cancer, HLD, HTN. Denies fever, chills, nausea, vomiting, diarrhea, headache, dizziness, chest pain, shortness of breath. No other symptoms or modifying factors present at this time. Chief Complaint: Abdominal Pain Time Seen by MD: 06:31 Primary Care Provider: unknown Reviewed Notes: Medications, Allergies Allergies: Uncoded Allergies: oysters (Allergy, Unknown, 03/02/22) hives Home Meds Active Scripts Empagliflozin (Jardiance) 10 Mg Tab, 10 MG PO DAILY, #30 TAB Prov:JOSE DAVID JAIMES MD 12/05/22 Simvastatin (Simvastatin) 40 Mg Tab, 40 MG PO DAILY, #30 TAB Prov:DORIS BETANCOURT MD 02/12/19 Aspirin (Aspir-Low) 81 Mg Tab, 81 MG PO DAILY for 30 Days, #30 MG Prov:DORIS BETANCOURT MD 02/12/19 Clopidogrel Bisulfate (Plavix) 75 Mg Tab, 1 TAB PO DAILY, #30 TAB 1 Refill Prov:DORIS BETANCOURT MD 02/12/19 Furosemide (Furosemide) 20 Mg Tab, 20 MG PO DAILY for 30 Days, MG Prov:DORIS BETANCOURT MD 02/12/19 Reported Medications Mexiletine Hcl (Mexiletine Hcl) 150 Mg Cap, 1 CAP PO BID 12/01/22 Sacubitril-Valsartan (Entresto 49-51 mg) 1 Tab Tab, 1 TAB PO BID, TAB 03/02/22 Sildenafil Citrate (Viagra) 100 Mg Tab, 100 MG PO 2XW PRN for for sexual activity 03/02/22 Carvedilol (Carvedilol) 25 Mg Tab, 25 MG PO Q12HR 03/02/22 Nitroglycerin (NTROSTAT SUBLINGUAL) 0.4 Mg Sl, 0.4 MG SL PRN *MAY REPEAT EVERY 5 MINUTES X 3 TOTAL IF NO RELIEF, INITIATE ANALGESIC THERAPY. NOTIFY PHYSICIAN *Do not crush. 02/09/19 Information Source: Patient Mode of Arrival: Ambulatory Timing: Days Duration: Since onset Prehospital treatment: None Quality: Sharp Vomitus: None Severity: Moderate Recent: None Recent Hx of: None Pain Location: LUQ Modifying Factors: Nothing Associated sign and symptoms: Constipation, Abdominal Pain Past Medical History PAST MEDICAL HISTORY: CAD, Cancer, CHF, High Lipids, HTN, MS, Thyroid Surgical History: Pacemaker, PTCA Family History Family History: Family hx of HTN Social History Smoker: Quit Greater Than 1 Year, Cigarettes Alcohol: Denies ETOH Use Drugs: Denies Drug Use Lives In: Home Constitutional: denies: chills, diaphoresis, fatigue, fever, malaise, sweats, weakness, others EENTM: denies: blurred vision, double vision, ear bleeding, ear discharge, ear drainage, ear pain, ear ringing, eye pain, eye redness, hearing loss, mouth pain, mouth swelling, nasal discharge, nose bleeding, nose congestion, nose pain, photophobia, tearing, throat pain, throat swelling, voice changes, others Respiratory: denies: cough, hemoptysis, orthopnea, SOB at rest, shortness of breath, SOB with excertion, stridor, wheezing, others Cardiovascular: denies: chest pain, dizzy spells, diaphoresis, Dyspnea on exertion, edema, irregular heart beat, left arm pain, lightheadedness, p alpitations, PND, syncope, others Gastrointestinal: reports: abdominal pain (LLQ pain ), constipated; denies: abdomen distended, blood streaked bowels, diarrhea, dysphagia, difficulty swallowing, hematemesis, melena, nausea, poor appetite, poor fluid intake, rectal bleeding, rectal pain, vomiting, others Genitourinary: denies: burning, dysuria, flank pain, frequency, hematuria, incontinence, penile discharge, penile sore, pain, testicle pain, testicle swelling, urgency, others Neurological: denies: dizziness, fainting, headache, left sided numbness, left sided weakness, numbness, paresthesia, pre-existing deficit, right sided numbness, right sided weakness, seizure, speech problems, tingling, tremors, weakness, others Musculoskeletal: denies: back pain, gout, joint pain, joint swelling, muscle pain, muscle stiffness, neck pain, others Integumetry: denies: bruises, change in color, change in hair/nails, dryness, laceration, lesions, lumps, rash, wounds, others Allergic/Immunocompromised: denies: Difficulty Healing, Frequent Infections, Hives, Itching, others Hematologic/Lymphatic: denies: anemia, blood clots, easy bleeding, easy bruising, swollen glands, others Endocrine: denies: excessive hunger, excessive sweating, excessive thirst, excessive urination, flushing, intolerance to cold, intolerance to heat, unexplained weight gain, unexplained weight loss, others Psychiatric: denies: anxiety, bipolar disorder, depression, hopeless, panic disorder, schizophrenia, sleepless, suicidal, others All Other Systems: Reviewed and Negative Physical Exam General Appearance: No Apparent Distress, Normal HEENT: Normal ENT Inspection, Pharynx Normal, TMs Normal Neck: Full Range of Motion, Non-Tender, Normal, Normal Inspection Respiratory: Chest Non-Tender, Lungs Clear, No Accessory Muscle Use, No Re spiratory Distress, Normal Breath Sounds Cardiovascular: No Edema, No JVD, No Murmur, No Gallop, Normal Peripheral Pulses, Regular Rate/Rhythm Breast Exam: Deferred Gastrointestinal: LLQ (tenderness), No Organomegaly, No Pulsatile Mass, Normal Bowel Sounds, Tenderness (LLQ) Genitalia: Deferred Pelvic: Deferred Rectal: Deferred Extremities: No calf tenderness, Normal capillary refill, Normal inspection, Normal range of motion, Non-tender, No pedal edema Musculoskeletal : Apperance: Normal Neurologic: Alert, customer engagement specialist II-XII nml as Tested, No Motor Deficits, Normal Affect, Normal Mood, No Sensory Deficits Cerebellar Function: Normal Reflexes: Normal Skin: Dry, Normal Color, Warm Lymphatic: No Adenopathy Was a procedure done? Was a procedure done?: No GI differential Dx Differential Diagnosis: Constipation, Gastritis/PUD, Gastroenteritis, UTI, Dehydration, Electrolyte Imbalance, Food Poisoning X-Ray, Labs, Meds, VS Vital Signs Date Time Temp Pulse Resp B/P (MAP) Pulse Ox O2 Delivery O2 Flow Rate FiO2 12/25/24 07:41 76 18 131/96 12/25/24 07:30 98.1 76 18 153/96 (115) 96 98.1 12/25/24 07:30 76 18 96 Nasal Cannula* 2 28 12/25/24 07:14 98.2 96 18 131/92 (105) 95 98.2 12/25/24 06:27 97.7 74 16 150/98 (115) 99 97.7 Lab Test 12/25/24 06:41 12/25/24 06:21 Range/Units White Blood Count 6.2 4.4-10.8 10^3/uL Red Blood Count 5.09 4.5-5.90 10^6/uL Hemoglobin 14.7 13.5-17.5 g/dL Hematocrit 44.0 41.0-53.0 % Mean Corpuscular Volume 86.4 80.0-100.0 fL Mean Corpuscular Hemoglobin 29.0 28.0-32.0 pg Mean Corpuscular Hemoglobin Concent 33.5 32.0-36.0 g/dL Red Cell Distribution Width 14.8 H 11.8-14.3 % Platelet Count 143 140-450 10^3/uL Mean Platelet Volume 7.8 6.9-10.8 fL Neutrophils (%) (Auto) 73.2 37.0-80.0 % Lymphocytes (%) (Auto) 10.1 10.0-50.0 % Monocytes (%) (Auto) 9.9 0.0-12.0 % Eosinophils (%) (Auto) 6.3 0.0-7.0 % Basophils (%) (Auto) 0.5 0.0-2.0 % Neutrophils # (Auto) 4.5 1.6-8.6 10 ^3/uL Lymphocytes # (Auto) 0.6 0.4-5.4 10 ^3/uL Monocytes # (Auto) 0.6 0-1.3 10 ^3/uL Eosinophils # (Auto) 0.4 0-0.8 10 ^3/uL Basophils # (Auto) 0 0-0.2 10 ^3/uL Nucleated Red Blood Cells 0.1 % Platelet Estimate Adequate Clumped Platelets Many Sodium Level 140 136-145 mmol/L Potassium Level 3.9 3.5-5.1 mmol/L Chloride Level 106 98-107 mmol/L Carbon Dioxide Level 26 20-31 mmol/L Anion Gap 8 5-15 Blood Urea Nitrogen 12 9-23 mg/dL Creatinine 1.18 0.700-1.30 mg/dL Glomerular Filtration Rate Calc 70 >90 mL/min BUN/Creatinine Ratio 10.2 10.0-20.0 Serum Glucose 115 H 74-106 mg/dL Calcium Level 9.9 8.7-10.4 mg/dL Urine Color Light-yellow Yellow Urine Clarity Clear Clear Urine pH 5.5 5.0-9.0 Urine Specific [place] 1.027 1.001-1.035 Urine Protein Negative Negative Urine Ketones Negative Negative Urine Blood Negative Negative /uL Urine Nitrite Negative Negative Urine Bilirubin Negative Negative Urine Urobilinogen Normal Negative mg/dL Urine Leukocyte Esterase Negative Negative /uL Urine RBC <1 0 - 3 /hpf Urine Microscopic WBC < 1 0-3 /HPF Urine Squamous Epithelial Cells None seen <5 /hpf Urine Bacteria None seen None Seen /hpf Urine Glucose Normal Normal mg/dL Current Medications Medications (Trade) Dose Ordered Sig/Omayra Route Start Time Stop Time Status Last Admin Sodium Chloride 1,000 ml @ 1,000 mls/hr Q1H ONCE IV 12/25/24 06:45 12/25/24 07:44 DC 12/25/24 07:13 Ondansetron HCl (Zofran) 4 mg ONCE ONCE IV 12/25/24 06:45 12/25/24 06:46 DC 12/25/24 07:39 Morphine Sulfate 4 mg ONCE ONCE IV 12/25/24 06:45 12/25/24 06:46 DC 12/25/24 07:41 Famotidine (Pepcid Injection) 20 mg ONCE ONCE IV 12/25/24 06:45 12/25/24 06:46 DC 12/25/24 07:39 [place] [id number] Ph: [phone] DIAGNOSTIC IMAGING Diagnostic Imaging Report : [id number] Signed PATIENT: SANA CHUNGOTILIAACCT: [id number] UNIT: [id number] : 1960 LOC: ER ROOM / BED: / AGE / SEX: 64 / M ADM STATUS: REG ER SERVICE 5 ORDERING PHYSICIAN: LEYDI SNOW MD PROCEDURE(s): ABPLIV - CT AB PEL WITH IV CON ONLY REASON: llq pain ORDER NUMBER(s): [id number], ACCESSION NUMBER(s): [id number] EXAM: CT Abdomen and Pelvis With Intravenous Contrast CLINICAL INDICATION: llq pain TECHNIQUE: Axial computed tomography images of the abdomen and pelvis with intravenous contrast. This CT exam was performed using one or more of the following dose reduction techniques: automated exposure control, adjustment of the mA and/or kV according to patient size, and/or use of iterative reconstruction technique. CONTRAST: RADIATION DOSE: CTDIvol = 22.67 mGy, DLP = 1406.49 mGy-cm COMPARISON: None FINDINGS: LUNG BASES: Unremarkable. No mass. No consolidation. MEDIASTINUM: Small esophageal hiatal hernia. ABDOMEN: LIVER: Hepatomegaly with fatty infiltration. GALLBLADDER AND BILE DUCTS: Unremarkable. No calcified stones. No ductal dilation. PANCREAS: Unremarkable. No mass. No ductal dilation. SPLEEN: Atrophic spleen with a hyperdense lesion measuring up to 8 mm. This could be a cavernous hemangioma. ADRENALS: Unremarkable. No mass. KIDNEYS AND URETERS: Bilateral renal cysts. No hydronephrosis. STOMACH AND BOWEL: Fecal retention in the colon consistent with constipation. Colonic diverticulosis without acute diverticulitis. No obstruction. PELVIS: APPENDIX: No findings to suggest acute appendicitis. BLADDER: Bladder wall thickening which may be due to the decompressed state of the bladder or due to cystitis. REPRODUCTIVE: Unremarkable as visualized. ABDOMEN and PELVIS: INTRAPERITONEAL SPACE: Unremarkable. No free air. No significant fluid collection. BONES/JOINTS: No acute fracture. No dislocation. SOFT TISSUES: Bilateral inguinal hernias. VASCULATURE: Unremarkable. No abdominal aortic aneurysm. LYMPH NODES: Unremarkable. No enlarged lymph nodes. OTHER FINDINGS: . . IMPRESSION: 1. Bladder wall thickening which may be due to the decompressed state of the bladder or due to cystitis. 2. Small esophageal hiatal hernia. 3. Hepatomegaly with fatty infiltration. 4. Fecal retention in the colon consistent with constipation. 5. Bilateral inguinal hernias. 6. Colonic diverticulosis without acute diverticulitis. ATED BY: KARLA BRITO MD DICTATED DATE/TIME: 12/25/24756 SIGNED BY: KARLA BRITO MD SIGNED DATE/TIME: 12/25/24756 CC: Time of 1ST Reevaluation: 07:01 Reevaluation 1ST: Unchanged Patient Education/Counseling: Diagnosis, Treatment, Prognosis Family Education/Counseling: No Family Present Additional Information The following tests were ordered, and results were reviewed by me: BMP, CBC, UA, CT AB PEL WITH IV CON I reviewed and agreed with the following test results read by other providers: CT AB PEL WITH IV CON I discussed treatment and results with medical personnel and: Patient Comprehensive systems review obtained and negative except for what is stated in the HPI. Departure 1 Departure Time of Disposition: 09:00 (Patient presented with abdominal pain that was concerning for possible appendicits, gastritis, cholecystitis, colitis, gastroenteritis, sbo, or orther possible surgical emergency. Data: 1. I ordered and reviewed the result of at least 3 labs including a CBC, BMP, and Urinalysis. 2. I independently interpreted the following tests: CT Abdoment and Pelvis is concerning for constipation and bladder inflammation .Risk:This patient has a high risk of morbidity due to further diagnostic testing or treatment and may suffer from an acute abdominal process disorder. Workup reveals intractable abdominal pain and patient should be admitted for further workup. and possible expert consultation. ) Impression: Primary Impression: Intractable abdominal pain Disposition: ADMITTED INPATIENT Admit to: Med Surg Condition: Serious Critical Care Note Critical Care Time?: Yes Critical care comment: Intractable abdominal pain Authorized and Performed by: Leydi Snow MD Total critical care time: Approximately 39 minutes Due to a high probability of clinically significant, life threatening deterioration, the patient required my highest level of preparedness to intervene emergently and I personally spent this critical care time directly and personally managing the patient. This critical care time included obtaining a history; examining the patient; pulse oximetry; ordering and review of studies; arranging urgent treatment with development of a management plan; evaluation of patient's response to treatment; frequent reassessment; and, discussions with other providers. This critical care time was performed to assess and manage the high probability of imminent, life-threatening deterioration that could result in multi-organ failure. It was exclusive of separately billable procedures and treating other patients and teaching time. Please see my other sections and the rest of the note for further information on patient assessment and treatment. Stability Stability form required: No I personally scribed for LEYDI SNOW MD ([email or web address]) on 12/25/24 at 06:39. Electronically submitted by Aria Arzate ([email or web address]). I personally scribed for LEYDI SNOW MD ([email or web address]) on 12/25/24 at 06:40. Electronically submitted by Aria Arzate ([email or web address]). I personally scribed for LEYDI SNOW MD ([email or web address]) on 12/25/24 at 08:20. Electronically submitted by Aria Arzate ([email or web address]). LEYDI SNOW MD Dec 25, 2024 06:39
[2024-12-25 07:06] LABS: Basophils # (auto) 0 10 ^3/uL (0-0.2); Basophils % (auto) 0.5 % (0.0-2.0); Chloride 106 mmol/L (98-107); Eosinophils # (auto) 0.4 10 ^3/uL (0-0.8); Eosinophils % (auto) 6.3 % (0.0-7.0); Hemoglobin 14.7 g/dL (13.5-17.5); Lymphocytes # (auto) 0.6 10 ^3/uL (0.4-5.4); Lymphocytes % (auto) 10.1 % (10.0-50.0); Mean Corpuscular Hgb Conc. 33.5 g/dL (32.0-36.0); Mean Corpuscular Volume 86.4 fL (80.0-100.0); Monocytes # (auto) 0.6 10 ^3/uL (0-1.3); Monocytes % (auto) 9.9 % (0.0-12.0); Neutrophils # (auto) 4.5 10 ^3/uL (1.6-8.6); Neutrophils % (auto) 73.2 % (37.0-80.0); Nucleated Red Blood Cells % 0.1 %; Platelet Count (auto) 143 10^3/uL (140-450); Potassium 3.9 mmol/L (3.5-5.1); Red Blood Cells 5.09 10^6/uL (4.5-5.90); Red Cell Distribution Width 14.8 % (11.8-14.3); Sodium 140 mmol/L (136-145); White Blood Cell 6.2 10^3/uL (4.4-10.8)
[2024-12-25 07:07] LABS: Anion Gap 8 (5-15); Carbon Dioxide 26 mmol/L (20-31)
[2024-12-25 07:08] LABS: Calcium 9.9 mg/dL (8.7-10.4)
[2024-12-25 07:13] LABS: BUN/Creatinine Ratio 10.2 (10.0-20.0); Blood Urea Nitrogen 12 mg/dL (9-23)
[2024-12-25] MEDS: SODIUM CHLORIDE 0.9% 1,000 ML IV ONE (07:13)
[2024-12-25 07:16] LABS: Glucose 115 mg/dL (74-106)
[2024-12-25] MEDS: ONDANSETRON HCL 4 MG/2 ML VIAL IV ONE (07:39)
[2024-12-25] MEDS: FAMOTIDINE (10MG/ML) 2ML VL IV ONE (07:39)
[2024-12-25] MEDS: MORPHINE SULFATE 4 MG/ML SYR/VIAL IV ONE (07:41)
--- NOTE | 2024-12-25 07:59 | DVH ---
EXAM: CT Abdomen and Pelvis With Intravenous Contrast CLINICAL INDICATION: llq pain TECHNIQUE: Axial computed tomography images of the abdomen and pelvis with intravenous contrast. Th is CT exam was performed using one or more of the following dose reduction techniques: automated exp osure control, adjustment of the mA and/or kV according to patient size, and/or use of iterative lissa nstruction technique. CONTRAST: RADIATION DOSE: CTDIvol = 22.67 mGy, DLP = 1406.49 mGy-cm COMPARISON: None FINDINGS: LUNG BASES: Unremarkable. No mass. No consolidation. MEDIASTINUM: Small esophageal hiatal hernia. ABDOMEN: LIVER: Hepatomegaly with fatty infiltration. GALLBLADDER AND BILE DUCTS: Unremarkable. No calcified stones. No ductal dilation. PANCREAS: Unremarkable. No mass. No ductal dilation. SPLEEN: Atrophic spleen with a hyperdense lesion measuring up to 8 mm. This could be a cavernous h emangioma. ADRENALS: Unremarkable. No mass. KIDNEYS AND URETERS: Bilateral renal cysts. No hydronephrosis. STOMACH AND BOWEL: Fecal retention in the colon consistent with constipation. Colonic diverticulos is without acute diverticulitis. No obstruction. PELVIS: APPENDIX: No findings to suggest acute appendicitis. BLADDER: Bladder wall thickening which may be due to the decompressed state of the bladder or due t o cystitis. REPRODUCTIVE: Unremarkable as visualized. ABDOMEN and PELVIS: INTRAPERITONEAL SPACE: Unremarkable. No free air. No significant fluid collection. BONES/JOINTS: No acute fracture. No dislocation. SOFT TISSUES: Bilateral inguinal hernias. VASCULATURE: Unremarkable. No abdominal aortic aneurysm. LYMPH NODES: Unremarkable. No enlarged lymph nodes. OTHER FINDINGS: . . IMPRESSION: 1. Bladder wall thickening which may be due to the decompressed state of the bladder or due to cysti tis. 2. Small esophageal hiatal hernia. 3. Hepatomegaly with fatty infiltration. 4. Fecal retention in the colon consistent with constipation. 5. Bilateral inguinal hernias. 6. Colonic diverticulosis without acute diverticulitis.
[2024-12-25 08:14] LABS: Platelet Estimate Adequate
[2024-12-25 08:24] LABS: Urine Bacteria None Seen /hpf (None Seen)
[2024-12-25 08:39] LABS: Urine Blood Negative /uL (Negative); Urine Clarity Clear (Clear); Urine Color Light-Yellow (Yellow); Urine Protein, UAD Negative (Negative); Urine Specific Gravity 1.027 (1.001-1.035); Urine Squamous Epithelial Cell None Seen /hpf (<5); Urine Urobilinogen Normal (Negative); Urine WBC < 1 /HPF (0-3); Urine pH 5.5 (5.0-9.0)
--- NOTE | 2024-12-25 11:40 | DVHHP2 ---
History of Present Illness Reason for Visit: Abdominal pain History of Present Illness Akash Garcia JR is a 64-year-old male with past medical history of CAD, NC, PTCA x4 at [facility], hypertension, hyperlipidemia, CHF, thyroid disease, prostate cancer with biopsy on chemo 2 years ago, and biventricular AICD that was placed a [facility] in 2020 who presents to the ED with abdominal pain x2 days. Patient reports that the pain is 4/10 sharp and constant. He also reports that he had a bowel movement yesterday with no issues or bleeding. Patient reports that he has a scheduled upcoming colonoscopy in February 2025. Patient denies any chest pain, shortness of breath, fever, chills, trauma or recent injury, recent ingestion of spoiled food, nausea, vomiting, diarrhea, lightheadedness, weakness, or dizziness. Cardiovascular: CAD, CHF, HTN, NC, hyperipidemia Endocrine: Hypothyroidism Past Medical History Prostate cancer Past Surgical History: Other (Biventricular AICD and PTCA x4) Family History: Hypertension, Other (Dad with hypertension) Smoke: No ALCOHOL: none Drugs: None Lives: Alone Domestic Violence: Neg Review of Systems Gastrointestinal: Abdominal Pain Allergies: Uncoded Allergies: oysters (Allergy, Unknown, 03/02/22) hives Exam Vital Signs Vital Signs Date Time Temp Pulse Resp B/P (MAP) Pulse Ox O2 Delivery O2 Flow Rate FiO2 12/25/24 07:41 76 18 131/96 12/25/24 07:30 98.1 96 98.1 12/25/24 07:30 Nasal Cannula* 2 28 General Appearance: Alert, Oriented X3, Cooperative, No acute distress HEENT: Atraumatic, PERRLA, EOMI, Mucous membr. moist/pink Respiratory: Clear to auscultation, Normal air movement Cardiovascular: Regular rate, Normal S1, Normal S2, No murmurs Abdominal: Normal bowel sounds, Soft Extremities: No clubbing, No cyanosis, No edema, Normal pulses, No tenderness/swelling Skin: No significant lesion Neuro: Normal speech, Strength at 5/5 X4 ext, Normal tone, Sensation intact Psych/Mental Status: Mental status NL, Mood NL Labs/Xrays Labs Test 12/25/24 06:41 12/25/24 06:21 Range/Units White Blood Count 6.2 4.4-10.8 10^3/uL Red Blood Count 5.09 4.5-5.90 10^6/uL Hemoglobin 14.7 13.5-17.5 g/dL Hematocrit 44.0 41.0-53.0 % Mean Corpuscular Volume 86.4 80.0-100.0 fL Mean Corpuscular Hemoglobin 29.0 28.0-32.0 pg Mean Corpuscular Hemoglobin Concent 33.5 32.0-36.0 g/dL Red Cell Distribution Width 14.8 H 11.8-14.3 % Platelet Count 143 140-450 10^3/uL Mean Platelet Volume 7.8 6.9-10.8 fL Neutrophils (%) (Auto) 73.2 37.0-80.0 % Lymphocytes (%) (Auto) 10.1 10.0-50.0 % Monocytes (%) (Auto) 9.9 0.0-12.0 % Eosinophils (%) (Auto) 6.3 0.0-7.0 % Basophils (%) (Auto) 0.5 0.0-2.0 % Neutrophils # (Auto) 4.5 1.6-8.6 10 ^3/uL Lymphocytes # (Auto) 0.6 0.4-5.4 10 ^3/uL Monocytes # (Auto) 0.6 0-1.3 10 ^3/uL Eosinophils # (Auto) 0.4 0-0.8 10 ^3/uL Basophils # (Auto) 0 0-0.2 10 ^3/uL Nucleated Red Blood Cells 0.1 % Platelet Estimate Adequate Clumped Platelets Many Sodium Level 140 136-145 mmol/L Potassium Level 3.9 3.5-5.1 mmol/L Chloride Level 106 98-107 mmol/L Carbon Dioxide Level 26 20-31 mmol/L Anion Gap 8 5-15 Blood Urea Nitrogen 12 9-23 mg/dL Creatinine 1.18 0.700-1.30 mg/dL Glomerular Filtration Rate Calc 70 >90 mL/min BUN/Creatinine Ratio 10.2 10.0-20.0 Serum Glucose 115 H 74-106 mg/dL Calcium Level 9.9 8.7-10.4 mg/dL Urine Color Light-yellow Yellow Urine Clarity Clear Clear Urine pH 5.5 5.0-9.0 Urine Specific [place] 1.027 1.001-1.035 Urine Protein Negative Negative Urine Ketones Negative Negative Urine Blood Negative Negative /uL Urine Nitrite Negative Negative Urine Bilirubin Negative Negative Urine Urobilinogen Normal Negative mg/dL Urine Leukocyte Esterase Negative Negative /uL Urine RBC <1 0 - 3 /hpf Urine Microscopic WBC < 1 0-3 /HPF Urine Squamous Epithelial Cells None seen <5 /hpf Urine Bacteria None seen None Seen /hpf Urine Glucose Normal Normal mg/dL EXAM: CT Abdomen and Pelvis With Intravenous Contrast CLINICAL INDICATION: llq pain TECHNIQUE: Axial computed tomography images of the abdomen and pelvis with intravenous contrast. This CT exam was performed using one or more of the following dose reduction techniques: automated exposure control, adjustment of the mA and/or kV according to patient size, and/or use of iterative reconstruction technique. CONTRAST: RADIATION DOSE: CTDIvol = 22.67 mGy, DLP = 1406.49 mGy-cm COMPARISON: None FINDINGS: LUNG BASES: Unremarkable. No mass. No consolidation. MEDIASTINUM: Small esophageal hiatal hernia. ABDOMEN: LIVER: Hepatomegaly with fatty infiltration. GALLBLADDER AND BILE DUCTS: Unremarkable. No calcified stones. No ductal dilation. PANCREAS: Unremarkable. No mass. No ductal dilation. SPLEEN: Atrophic spleen with a hyperdense lesion measuring up to 8 mm. This could be a cavernous hemangioma. ADRENALS: Unremarkable. No mass. KIDNEYS AND URETERS: Bilateral renal cysts. No hydronephrosis. STOMACH AND BOWEL: Fecal retention in the colon consistent with constipation. Colonic diverticulosis without acute diverticulitis. No obstruction. PELVIS: APPENDIX: No findings to suggest acute appendicitis. BLADDER: Bladder wall thickening which may be due to the decompressed state of the bladder or due to cystitis. REPRODUCTIVE: Unremarkable as visualized. ABDOMEN and PELVIS: INTRAPERITONEAL SPACE: Unremarkable. No free air. No significant fluid collection. BONES/JOINTS: No acute fracture. No dislocation. SOFT TISSUES: Bilateral inguinal hernias. VASCULATURE: Unremarkable. No abdominal aortic aneurysm. LYMPH NODES: Unremarkable. No enlarged lymph nodes. OTHER FINDINGS: . . IMPRESSION: 1. Bladder wall thickening which may be due to the decompressed state of the bladder or due to cystitis. 2. Small esophageal hiatal hernia. 3. Hepatomegaly with fatty infiltration. 4. Fecal retention in the colon consistent with constipation. 5. Bilateral inguinal hernias. 6. Colonic diverticulosis without acute diverticulitis. Assessment/Plan Assessment/Plan Assessment Intractable abdominal pain Probable acute cystitis Small esophageal hiatal hernia Hepatomegaly Constipation Bilateral inguinal hernias Colonic diverticulosis Biventricular AICD History of CAD Obesity History of NC status post PTCA x4 History of hypertension History of hyperlipidemia History of thyroid disease History of CHF History of prostate cancer with biopsy on chemo 2 years ago Plan Admit to med [facility] UA noted CT abdomen and pelvis PPIs Antiemetics Pain management NS 1 L given ED RBC morphology IV antibiotics-Zosyn Bowel regimen Home medications reconciled DVT prophylaxis-patient on Plavix PUD prophylaxis-PPIs Discussed plan of care with patient, patient's , and nurse Counseled patient on lifestyle modifications, diet, and exercise Plan discussed with: Patient, Spouse Date of Service: Dec 25, 2024 Billing Provider: SHANNA SEN Common Visit Codes: [id number] INP/OBS CARE (HIGH) SHANNA SEN Dec 25, 2024 11:40
[2024-12-25] MEDS: PIPERACILLIN-TAZOB 3.375GM 100 ML IV SCH (11:45)
[2024-12-25] MEDS: POLYETHYLENE GLYCOL 17 GM PWDR PO SCH (11:45)
[2024-12-25] MEDS: DOCUSATE SOD 100 MG CAP PO SCH (11:45)
[2024-12-25] MEDS ORDERED: SILDENAFIL CITRATE 100 MG PO PRN (13:15)
[2024-12-25] MEDS: MORPHINE SULFATE INJ 2 MG/ml SYRG IV PRN (14:34)
[2024-12-25] MEDS: ONDANSETRON HCL 4 MG/2 ML VIAL IV PRN (14:38)
[2024-12-25] MEDS: PANTOPRAZOLE 40 MG/10 ML VIAL INJ IV SCH (14:47)
[2024-12-25] MEDS: MEXILETINE HYDROCHLORIDE 150 MG CAP PO SCH (21:48)
[2024-12-25] MEDS: ATORVASTATIN 20 MG TAB PO SCH (21:49)
[2024-12-25] MEDS: CARVEDILOL 12.5 MG TAB PO SCH (21:49)
[2024-12-26] VITALS (10 sets, daily range): BP systolic 105–133; BP diastolic 70–95; PULSE 60–119; RESP 15–18; TEMP 97.1–98.9; O2SAT 92–100
[2024-12-26 06:45] LABS: Basophils # (auto) 0 10 ^3/uL (0-0.2); Basophils % (auto) 0.2 % (0.0-2.0); Eosinophils # (auto) 0.3 10 ^3/uL (0-0.8); Eosinophils % (auto) 5.1 % (0.0-7.0); Hematocrit 36.6 % (41.0-53.0); Hemoglobin 12.6 g/dL (13.5-17.5); Lymphocytes # (auto) 0.4 10 ^3/uL (0.4-5.4); Lymphocytes % (auto) 7.7 % (10.0-50.0); Mean Corpuscular Hemoglobin 29.8 pg (28.0-32.0); Mean Corpuscular Hgb Conc. 34.4 g/dL (32.0-36.0); Mean Corpuscular Volume 86.6 fL (80.0-100.0); Monocytes # (auto) 0.4 10 ^3/uL (0-1.3); Monocytes % (auto) 7.4 % (0.0-12.0); Neutrophils # (auto) 4.7 10 ^3/uL (1.6-8.6); Neutrophils % (auto) 79.6 % (37.0-80.0); Platelet Count (auto) 217 10^3/uL (140-450); Red Blood Cells 4.22 10^6/uL (4.5-5.90); Red Cell Distribution Width 14.7 % (11.8-14.3); White Blood Cell 5.9 10^3/uL (4.4-10.8)
[2024-12-26 06:58] LABS: Alanine Aminotransferase 11 U/L (7-40); Albumin 4.1 g/dL (3.2-4.8); Alkaline Phosphatase 65 U/L (46-116); Anion Gap 8 (5-15); BUN/Creatinine Ratio 11.2 (10.0-20.0); Bilirubin, Total 0.9 mg/dL (0.2-1.0); Blood Urea Nitrogen 13 mg/dL (9-23); Calcium 9.4 mg/dL (8.7-10.4); Carbon Dioxide 27 mmol/L (20-31); Chloride 104 mmol/L (98-107); Potassium 3.9 mmol/L (3.5-5.1); Sodium 139 mmol/L (136-145); Total Protein 6.6 g/dL (5.7-8.2)
[2024-12-26 07:02] LABS: Aspartate Aminotransferase 67 U/L (13-40); Glucose 113 mg/dL (74-106)
[2024-12-26] MEDS: ASPirin-EC 81 mg tab PO SCH (08:30)
[2024-12-26] MEDS: CLOPIDOGREL BISULFATE 75 MG TAB PO SCH (08:30)
[2024-12-26] MEDS: FUROSEMIDE 20 MG TAB PO SCH (08:31)
[2024-12-26] MEDS: HYDROcodone-ACET 5/325MG TAB PO PRN (08:33)
--- NOTE | 2024-12-26 18:02 | DVHPN2 ---
Subjective I am assuming the care of the patient from today onwards. Patient's CT abdomen and pelvis showed evidence of extensive stool burden with the constipation. Bowel regimen has been started. 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 Medications Current Medications Medications Dose Ordered Sig/Omayra Route Start Time Stop Time Status Last Admin Dose Admin Polyethylene Glycol 17 gm DAILY PO 12/25/24 11:45 12/26/24 08:34 17 GM Docusate Sodium 100 mg BID PO 12/25/24 11:45 12/26/24 08:30 100 MG Acetaminophen/ Hydrocodone Bitart 1 tab Q4HP PRN PO 12/25/24 11:45 12/26/24 08:33 1 TAB Ondansetron HCl 4 mg Q4HP PRN IV 12/25/24 11:45 12/25/24 14:38 4 MG Acetaminophen 650 mg Q6HP PRN PO 12/25/24 11:45 Morphine Sulfate 2 mg Q4HPRN PRN IV 12/25/24 11:45 12/25/24 14:34 2 MG Piperacillin Sod/ Tazobactam Sod 100 ml @ 25 mls/hr Q8HR IV 12/25/24 11:45 12/26/24 13:25 25 MLS/HR Aspirin 81 mg DAILY PO 12/26/24 10:00 12/26/24 08:30 81 MG Clopidogrel Bisulfate 75 mg DAILY PO 12/26/24 10:00 12/26/24 08:30 75 MG Furosemide 20 mg DAILY PO 12/26/24 10:00 12/26/24 08:31 20 MG Mexiletine HCl 150 mg BID PO 12/25/24 22:00 12/26/24 10:45 150 MG Carvedilol 25 mg Q12HR PO 12/25/24 22:00 12/26/24 10:48 25 MG Patient Own Medication 1 tab BID PO 12/25/24 22:00 12/26/24 10:47 1 TAB Patient Own Medication 100 mg 2XW PRN PO 12/25/24 13:15 Atorvastatin Calcium 20 mg HS PO 12/25/24 22:00 12/25/24 21:49 20 MG Pantoprazole Sodium 40 mg DAILY IV 12/25/24 14:00 12/26/24 10:47 40 MG Laboratory Results Laboratory Tests 12/26/24 06:06 Chemistry Test 12/26/24 06:06 Albumin 4.1 g/dL (3.2-4.8) Calcium Level 9.4 mg/dL (8.7-10.4) Total Protein 6.6 g/dL (5.7-8.2) LFT Test 12/26/24 06:06 Alanine Aminotransferase (ALT) 11 U/L (7-40) Alkaline Phosphatase 65 U/L (46-116) Aspartate Amino Transferase (AST) 67 U/L (13-40) H Total Bilirubin 0.9 mg/dL (0.2-1.0) Urinalysis Test 12/25/24 06:21 Urine Color Light-yellow (Yellow) Urine Clarity Clear (Clear) Urine pH 5.5 (5.0-9.0) Urine Specific [place] 1.027 (1.001-1.035) Urine Protein Negative (Negative) Urine Ketones Negative (Negative) Urine Blood Negative /uL (Negative) Urine Nitrite Negative (Negative) Urine Bilirubin Negative (Negative) Urine Urobilinogen Normal mg/dL (Negative) Urine Leukocyte Esterase Negative /uL (Negative) Urine RBC <1 /hpf (0 - 3) Urine Microscopic WBC < 1 /HPF (0-3) Urine Squamous Epithelial Cells None seen /hpf (<5) Urine Bacteria None seen /hpf (None Seen) Urine Glucose Normal mg/dL (Normal) Assessment/Plan Assessment/Plan 84-year-old male with a known history of coronary artery disease status post PCI with four stents, hypertension, dyslipidemia, cardiomyopathy with EF of 10%, status post biventricular AICD, hypothyroidism, history of prostate cancer status post chemo two years ago, who initially presented to the hospital with abdominal pain for last two days found to have 1. Intractable abdominal pain 2. Constipation with the extensive stool burden 3. Acute on chronic congestive heart failure exacerbation with systolic dysfunction 4. Ischemic cardiomyopathy with EF of 10% 5. Coronary artery disease status post PCI with four stents 6. Status post biventricular AICD 7. Hypertension 8. Hypothyroidism 9. Prostate cancer status post chemotherapy -continue IV diuretics, bowel-regimen Physical therapy evaluation and treatment -2D echo Plan discussed with: Patient Date of Service: Dec 26, 2024 Billing Provider: ALF DUFFY MD Common Visit Codes: [id number] INP/OBS CARE(MOD) ALF DUFFY MD Dec 26, 2024 18:02
[2024-12-26] MEDS: LACTULOSE 20Gm/30ML SOLN PO SCH (22:49)
[2024-12-26] MEDS: SENNA 8.6 MG TAB PO SCH (23:06)
[2024-12-26] MEDS: ACETAMINOPHEN 325 MG TAB PO PRN (23:06)
[2024-12-27] VITALS (8 sets, daily range): BP systolic 111–144; BP diastolic 69–89; PULSE 69–78; RESP 17–19; TEMP 97.8–99.2; O2SAT 92–98
--- NOTE | 2024-12-27 11:02 | DVH ---
EXAM: XY CHEST XRAY 1 VIEW HISTORY: Trouble breathing COMPARISON: XY CHEST PORTABLE on DOS: 12/04/22, XY CHEST PORTABLE on DOS: 12/02/22, XY CHEST PORTABLE o n DOS: 11/30/22, CHEST PORTABLE on DOS: 09/06/20, CHEST PORTABLE on DOS: 03/20/20 TECHNIQUE: Portable AP view of the chest was performed. FINDINGS: There is mild Central interstitial prominence, increased versus prior chest x-ray. No pneumothorax or consolidative infiltrates. The heart is enlarged. There is a left chest AICD. IMPRESSION: Cardiomegaly with mildly increased interstitial prominence centrally, suggestive of mild CHF.
[2024-12-27] MEDS: FUROSEMIDE 40 MG/4 ML VIAL IV ONE (11:17)
--- NOTE | 2024-12-27 15:21 | DVHPN2 ---
Subjective Patient was seen and evaluated by me. Currently at bedside all the questions were answered. Patient's abdominal pain is resolved as he has bowel movements. Patient has had a shortness of breaths today eventually requiring IV Lasix currently on O2 supplementation. Patient denies any using home oxygen. 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 Medications Current Medications Medications Dose Ordered Sig/Omayra Route Start Time Stop Time Status Last Admin Dose Admin Polyethylene Glycol 17 gm DAILY PO 12/25/24 11:45 12/27/24 09:17 17 GM Docusate Sodium 100 mg BID PO 12/25/24 11:45 12/27/24 09:16 100 MG Acetaminophen/ Hydrocodone Bitart 1 tab Q4HP PRN PO 12/25/24 11:45 12/26/24 08:33 1 TAB Ondansetron HCl 4 mg Q4HP PRN IV 12/25/24 11:45 12/25/24 14:38 4 MG Acetaminophen 650 mg Q6HP PRN PO 12/25/24 11:45 12/26/24 23:06 650 MG Morphine Sulfate 2 mg Q4HPRN PRN IV 12/25/24 11:45 12/25/24 14:34 2 MG Piperacillin Sod/ Tazobactam Sod 100 ml @ 25 mls/hr Q8HR IV 12/25/24 11:45 12/27/24 05:51 25 MLS/HR Aspirin 81 mg DAILY PO 12/26/24 10:00 12/27/24 09:14 81 MG Clopidogrel Bisulfate 75 mg DAILY PO 12/26/24 10:00 12/27/24 09:14 75 MG Mexiletine HCl 150 mg BID PO 12/25/24 22:00 12/27/24 11:17 150 MG Carvedilol 25 mg Q12HR PO 12/25/24 22:00 12/27/24 09:16 25 MG Patient Own Medication 1 tab BID PO 12/25/24 22:00 12/26/24 10:47 1 TAB Patient Own Medication 100 mg 2XW PRN PO 12/25/24 13:15 Atorvastatin Calcium 20 mg HS PO 12/25/24 22:00 12/26/24 22:50 20 MG Pantoprazole Sodium 40 mg DAILY IV 12/25/24 14:00 12/27/24 09:13 40 MG Sennosides 17.2 mg HS PO 12/26/24 22:00 12/26/24 23:06 17.2 MG Lactulose 30 ml Q4HR PO 12/26/24 22:00 12/27/24 09:17 30 ML Furosemide 40 mg BIDD IV 12/27/24 18:00 Laboratory Results Laboratory Tests 12/26/24 06:06 Urinalysis Test 12/25/24 06:21 Urine Color Light-yellow (Yellow) Urine Clarity Clear (Clear) Urine pH 5.5 (5.0-9.0) Urine Specific [place] 1.027 (1.001-1.035) Urine Protein Negative (Negative) Urine Ketones Negative (Negative) Urine Blood Negative /uL (Negative) Urine Nitrite Negative (Negative) Urine Bilirubin Negative (Negative) Urine Urobilinogen Normal mg/dL (Negative) Urine Leukocyte Esterase Negative /uL (Negative) Urine RBC <1 /hpf (0 - 3) Urine Microscopic WBC < 1 /HPF (0-3) Urine Squamous Epithelial Cells None seen /hpf (<5) Urine Bacteria None seen /hpf (None Seen) Urine Glucose Normal mg/dL (Normal) Assessment/Plan Assessment/Plan 84-year-old male with a known history of coronary artery disease status post PCI with four stents, hypertension, dyslipidemia, cardiomyopathy with EF of 10%, status post biventricular AICD, hypothyroidism, history of prostate cancer status post chemo two years ago, who initially presented to the hospital with abdominal pain for last two days found to have 1. Intractable abdominal pain 2. Constipation with the extensive stool burden 3. Acute on chronic congestive heart failure exacerbation with systolic dysfunction 4. Ischemic cardiomyopathy with EF of 10% 5. Coronary artery disease status post PCI with four stents 6. Status post biventricular AICD 7. Hypertension 8. Hypothyroidism 9. Prostate cancer status post chemotherapy -continue IV diuretics, bowel-regimen Physical therapy evaluation and treatment -2D echo Plan discussed with: Patient, Spouse My Orders Orders - ALF DUFFY MD Procedure Category Date Status Time Senna Pod Tablet PHA 12/26/24 In Process (Senokot Tablet) 22:00 Lactulose Oral PHA 12/26/24 In Process 22:00 Chest Xray 1 View XY 12/27/24 Resulted 10:32 Basic Metabolic Panel LAB 12/28/24 Verified 04:00 Magnesium,Therapeutic LAB 12/27/24 Logged 04:00 Furosemide Injection PHA 12/27/24 In Process (Lasix Injection) 18:00 Date of Service: Dec 27, 2024 Billing Provider: ALF DUFFY MD Common Visit Codes: [id number] INP/OBS CARE(MOD) ALF DUFFY MD Dec 27, 2024 15:21
[2024-12-27] MEDS: FUROSEMIDE 40 MG/4 ML VIAL IV SCH (17:57)
[2024-12-28] VITALS (7 sets, daily range): BP systolic 111–128; BP diastolic 74–83; PULSE 63–76; RESP 18–20; TEMP 97.4–98.4; O2SAT 96–100
[2024-12-28 06:38] LABS: Anion Gap 8 (5-15); Carbon Dioxide 29 mmol/L (20-31); Chloride 101 mmol/L (98-107); Potassium 3.6 mmol/L (3.5-5.1); Sodium 138 mmol/L (136-145)
[2024-12-28 06:39] LABS: Calcium 9.8 mg/dL (8.7-10.4)
[2024-12-28 06:44] LABS: Glucose 107 mg/dL (74-106)
[2024-12-28 07:37] LABS: BUN/Creatinine Ratio 9.4 (10.0-20.0); Blood Urea Nitrogen 12 mg/dL (9-23)
--- NOTE | 2024-12-28 15:16 | DVHDS2 ---
Discharge Summary Date of Admission Dec 25, 2024 at 11:31 Date of Discharge: Dec 28, 2024 Labs/Diagnostic Data: Laboratory Results Test 12/28/24 05:26 12/26/24 10:47 12/26/24 06:06 12/25/24 06:41 Sodium Level 138 mmol/L (136-145) Potassium Level 3.6 mmol/L (3.5-5.1) Chloride Level 101 mmol/L (98-107) Carbon Dioxide Level 29 mmol/L (20-31) Anion Gap 8 (5-15) Blood Urea Nitrogen 12 mg/dL (9-23) Creatinine 1.28 mg/dL (0.700-1.30) Glomerular Filtration Rate Calc 63 mL/min (>90) BUN/Creatinine Ratio 9.4 (10.0-20.0) Serum Glucose 107 mg/dL (74-106) Calcium Level 9.8 mg/dL (8.7-10.4) Magnesium Lvl (Mg Sulfate Therapy) 2.27 mg/dL (4.0-7.1) POC Glucose 94 mg/dl (70-106) White Blood Count 5.9 10^3/uL (4.4-10.8) Red Blood Count 4.22 10^6/uL (4.5-5.90) Hemoglobin 12.6 g/dL (13.5-17.5) Hematocrit 36.6 % (41.0-53.0) Mean Corpuscular Volume 86.6 fL (80.0-100.0) Mean Corpuscular Hemoglobin 29.8 pg (28.0-32.0) Mean Corpuscular Hemoglobin Concent 34.4 g/dL (32.0-36.0) Red Cell Distribution Width 14.7 % (11.8-14.3) Platelet Count 217 10^3/uL (140-450) Mean Platelet Volume 7.4 fL (6.9-10.8) Neutrophils (%) (Auto) 79.6 % (37.0-80.0) Lymphocytes (%) (Auto) 7.7 % (10.0-50.0) Monocytes (%) (Auto) 7.4 % (0.0-12.0) Eosinophils (%) (Auto) 5.1 % (0.0-7.0) Basophils (%) (Auto) 0.2 % (0.0-2.0) Neutrophils # (Auto) 4.7 10 ^3/uL (1.6-8.6) Lymphocytes # (Auto) 0.4 10 ^3/uL (0.4-5.4) Monocytes # (Auto) 0.4 10 ^3/uL (0-1.3) Eosinophils # (Auto) 0.3 10 ^3/uL (0-0.8) Basophils # (Auto) 0 10 ^3/uL (0-0.2) Nucleated Red Blood Cells 0.0 % Total Bilirubin 0.9 mg/dL (0.2-1.0) Aspartate Amino Transferase (AST) 67 U/L (13-40) Alanine Aminotransferase (ALT) 11 U/L (7-40) Alkaline Phosphatase 65 U/L (46-116) Total Protein 6.6 g/dL (5.7-8.2) Albumin 4.1 g/dL (3.2-4.8) Platelet Estimate Adequate Clumped Platelets Many Test 12/25/24 06:21 Urine Color Light-yellow (Yellow) Urine Clarity Clear (Clear) Urine pH 5.5 (5.0-9.0) Urine Specific [facility] 1.027 (1.001-1.035) Urine Protein Negative (Negative) Urine Ketones Negative (Negative) Urine Blood Negative /uL (Negative) Urine Nitrite Negative (Negative) Urine Bilirubin Negative (Negative) Urine Urobilinogen Normal mg/dL (Negative) Urine Leukocyte Esterase Negative /uL (Negative) Urine RBC <1 /hpf (0 - 3) Urine Microscopic WBC < 1 /HPF (0-3) Urine Squamous Epithelial Cells None seen /hpf (<5) Urine Bacteria None seen /hpf (None Seen) Urine Glucose Normal mg/dL (Normal) Other Laboratory Tests 12/28/24 05:26 12/26/24 06:06 Brief Hx & Hospital Course: 84-year-old male with a known history of coronary artery disease status post PCI with four stents, hypertension, dyslipidemia, cardiomyopathy with EF of 10%, status post biventricular AICD, hypothyroidism, history of prostate cancer status post chemo two years ago, who initially presented to the hospital with abdominal pain for last two days found to have intractable abdominal pain with constipation with the extensive stool burden. Patient was given laxatives and full bowel regimen. Patient also found to have acute on chronic congestive heart failure exacerbation with systolic dysfunction with the EF of 10% received IV diuretics. Patient's hospital course was uneventful currently he is stable to be discharged. Condition at Discharge: Stable Final Diagnosis/Problems List 84-year-old male with a known history of coronary artery disease status post PCI with four stents, hypertension, dyslipidemia, cardiomyopathy with EF of 10%, status post biventricular AICD, hypothyroidism, history of prostate cancer status post chemo two years ago, who initially presented to the hospital with abdominal pain for last two days found to have 1. Intractable abdominal pain 2. Constipation with the extensive stool burden 3. Acute on chronic congestive heart failure exacerbation with systolic dysfunction 4. Ischemic cardiomyopathy with EF of 10% 5. Coronary artery disease status post PCI with four stents 6. Status post biventricular AICD 7. Hypertension 8. Hypothyroidism 9. Prostate cancer status post chemotherapy 10. Obesity hypoventilation syndrome, CPAP while asleep. Discharge Disposition: Home SNF Discharge Will this Physician continue t: No Discharge Instruct/Medications Diet: Cardiac 2g Na,low cholest Activity: No Restrictions, As Tolerated Follow Up/Referral: Follow up with the PCP and Cardiology in 1-2 weeks Medications: Resume home medications Discharge Statement: "Patient was advised to return to the ER or call 911 if any headaches, dizziness, shortness of breath, chest pain, abdominal pain, bleeding, fevers, or worsening of medical condition. Patient was counseled about treatment plan, medications, possible side effects, patientverbalized understanding. All questions were answered to the best of my ability. This discharge took greater then 30 minutes in planning, reviewing documentation, counseling the patient, and discussing with other team members." ASSESSMENT ASSESSMENT Assessment 84-year-old male with a known history of coronary artery disease status post PCI with four stents, hypertension, dyslipidemia, cardiomyopathy with EF of 10%, status post biventricular AICD, hypothyroidism, history of prostate cancer status post chemo two years ago, who initially presented to the hospital with abdominal pain for last two days found to have 1. Intractable abdominal pain 2. Constipation with the extensive stool burden 3. Acute on chronic congestive heart failure exacerbation with systolic dysfunction 4. Ischemic cardiomyopathy with EF of 10% 5. Coronary artery disease status post PCI with four stents 6. Status post biventricular AICD 7. Hypertension 8. Hypothyroidism 9. Prostate cancer status post chemotherapy 10. Obesity hypoventilation syndrome, CPAP while asleep. Date of Service: Dec 28, 2024 Billing Provider: ALF DUFFY MD Common Visit Codes: 64105-LWY/OBS DISCH DAY >30min ALF DUFFY MD Dec 28, 2024 15:16
== END 2024-12-28 17:00 | disposition home or self-care (01) | DRG 388 ==
LOC: ER 06:11 → OVERFLOW 11:31 → WEST WING 13:25
PROVIDERS: ADMIT Internal Medicine; ATTEND Internal Medicine
PROC: 5A09357 Assistance with Respiratory Ventilation, Less than 24 Consecutive Hours, Continuous Positive Airway Pressure (ICD-10-PCS; principal; 2024-12-25)
PROC: 5A09357 Assistance with Respiratory Ventilation, Less than 24 Consecutive Hours, Continuous Positive Airway Pressure (ICD-10-PCS; 2024-12-26)
PROC: 5A09357 Assistance with Respiratory Ventilation, Less than 24 Consecutive Hours, Continuous Positive Airway Pressure (ICD-10-PCS; 2024-12-27)
PROC: 5A09357 Assistance with Respiratory Ventilation, Less than 24 Consecutive Hours, Continuous Positive Airway Pressure (ICD-10-PCS; 2024-12-28)
DX: K56.41 Fecal impaction (principal); I50.23 Acute on chronic systolic (congestive) heart failure; E66.2 Morbid (severe) obesity with alveolar hypoventilation; I11.0 Hypertensive heart disease with heart failure; K57.30 Diverticulosis of large intestine without perforation or abscess without bleeding; K44.9 Diaphragmatic hernia without obstruction or gangrene; R16.0 Hepatomegaly, not elsewhere classified; K40.20 Bilateral inguinal hernia, without obstruction or gangrene, not specified as recurrent; I25.10 Atherosclerotic heart disease of native coronary artery without angina pectoris; Z68.34 Body mass index [BMI] 34.0-34.9, adult; E78.5 Hyperlipidemia, unspecified; I25.5 Ischemic cardiomyopathy; E03.9 Hypothyroidism, unspecified; Z88.8 Allergy status to other drugs, medicaments and biological substances; Z79.82 Long term (current) use of aspirin; Z79.899 Other long term (current) drug therapy; Z82.49 Family history of ischemic heart disease and other diseases of the circulatory system; Z87.891 Personal history of nicotine dependence; Z85.46 Personal history of malignant neoplasm of prostate; Z92.21 Personal history of antineoplastic chemotherapy; I25.2 Old myocardial infarction; Z98.61 Coronary angioplasty status
CPT/HCPCS: 36415; 71045; 74177; 80048; 80053; 81001; 82962; 83735; 85025; 93306; 94660; 96361; 96374; 96375; 99291; G0378; J2405; J2470; J2543; J3490

== ENCOUNTER 2025-09-04 07:52 | Inpatient (IN) | payer MEDICARE, OTHER ==
[~2025-09-04] VITALS: Ht 175.3 cm; Wt 110.4 kg
[2025-09-04] MEDS: MAALOX PLUS or MAALOX 30 ML PO ONE (08:26)
--- NOTE | 2025-09-04 08:30 | ED.PDOC ---
HPI Comments A 65 year-old male, with a Hx of CAD, CHF, and HTN, presents to the ED with a chief complaint of substernal chest pain with associated SOB for X2 days. Pt reports chest pain is non-radiating, with associated tightness sensation. Patient reports being seen by his Corporate Sales Representative Dr. Callahan. Patient has no further complaints at this time and denies symptoms of dizziness, weakness, fatigue, palpitations, or N/V/D. Chief Complaint: Chest Pain Time Seen by MD: 08:15 Primary Care Provider: unknown Reviewed Notes: Medications, Allergies Allergies: Uncoded Allergies: oysters (Allergy, Unknown, 03/02/22) hives Home Meds Active Scripts Empagliflozin (Jardiance) 10 Mg Tab, 10 MG PO DAILY, #30 TAB Prov:JOSE DAVID JAIMES MD 12/05/22 Simvastatin (Simvastatin) 40 Mg Tab, 40 MG PO DAILY, #30 TAB Prov:DORIS BETANCOURT MD 02/12/19 Aspirin (Aspir-Low) 81 Mg Tab, 81 MG PO DAILY for 30 Days, #30 MG Prov:DORIS BETANCOURT MD 02/12/19 Clopidogrel Bisulfate (Plavix) 75 Mg Tab, 1 TAB PO DAILY, #30 TAB 1 Refill Prov:DORIS BETANCOURT MD 02/12/19 Furosemide (Furosemide) 20 Mg Tab, 20 MG PO DAILY for 30 Days, MG Prov:DORIS BETANCOURT MD 02/12/19 Reported Medications Mexiletine Hcl (Mexiletine Hcl) 150 Mg Cap, 1 CAP PO BID 12/01/22 Sacubitril-Valsartan (Entresto 49-51 mg) 1 Tab Tab, 1 TAB PO BID, TAB 03/02/22 Sildenafil Citrate (Viagra) 100 Mg Tab, 100 MG PO 2XW PRN for for sexual activity 03/02/22 Carvedilol (Carvedilol) 25 Mg Tab, 25 MG PO Q12HR 03/02/22 Nitroglycerin (NTROSTAT SUBLINGUAL) 0.4 Mg Sl, 0.4 MG SL PRN *MAY REPEAT EVERY 5 MINUTES X 3 TOTAL IF NO RELIEF, INITIATE ANALGESIC THERAPY. NOTIFY PHYSICIAN *Do not crush. 02/09/19 Information Source: Patient Mode of Arrival: Ambulatory Severity: Moderate Timing: Days Duration: Since onset Prehospital treatment: None Location: Substernal Radiation: No Radiation Associated Signs and Symptoms: SOB Past Medical History PAST MEDICAL HISTORY: CAD, Cancer, CHF, High Lipids, HTN, [place], Thyroid Surgical History: Pacemaker, PTCA Family History Family History: Family hx of HTN Social History Smoker: Quit Greater Than 1 Year, Cigarettes Alcohol: Denies ETOH Use Drugs: Denies Drug Use Lives In: Home Constitutional: denies: chills, diaphoresis, fatigue, fever, malaise, sweats, weakness, others EENTM: denies: blurred vision, double vision, ear bleeding, ear discharge, ear drainage, ear pain, ear ringing, eye pain, eye redness, hearing loss, mouth pain, mouth swelling, nasal discharge, nose bleeding, nose congestion, nose pain, photophobia, tearing, throat pain, throat swelling, voice changes, others Respiratory: reports: SOB at rest, shortness of breath, SOB with excertion; denies: cough, hemoptysis, orthopnea, stridor, wheezing, others Cardiovascular: reports: chest pain; denies: dizzy spells, diaphoresis, Dyspnea on exertion, edema, irregular heart beat, left arm pain, lightheadedness, palpitations, PND, syncope, others Gastrointestinal: denies: abdomen distended, abdominal pain, blood streaked bowels, constipated, diarrhea, dysphagia, difficulty swallowing, hematemesis, melena, nausea, poor appetite, poor fluid intake, rectal bleeding, rectal pain, vomiting, others Genitourinary: denies: burning, dysuria, flank pain, frequency, hematuria, incontinence, penile discharge, penile sore, pain, testicle pain, testicle swelling, urgency, others Neurological: denies: dizziness, fainting, headache, left sided numbness, left sided weakness, numbness, paresthesia, pre-existing deficit, right sided numbness, right sided weakness, seizure, speech problems, tingling, tremors, weakness, others Musculoskeletal: denies: back pain, gout, joint pain, joint swelling, muscle pain, muscle stiffness, neck pain, others Integumetry: denies: bruises, change in color, change in hair/nails, dryness, laceration, lesions, lumps, rash, wounds, others Allergic/Immunocompromised: denies: Difficulty Healing, Frequent Infections, Hives, Itching, others Hematologic/Lymphatic: denies: anemia, blood clots, easy bleeding, easy bruising, swollen glands, others Endocrine: denies: excessive hunger, excessive sweating, excessive thirst, excessive urination, flushing, intolerance to cold, intolerance to heat, unexplained weight gain, unexplained weight loss, others Psychiatric: denies: anxiety, bipolar disorder, depression, hopeless, panic disorder, schizophrenia, sleepless, suicidal, others All Other Systems: Reviewed and Negative Physical Exam General Appearance: Mild Distress, Normal HEENT: Normal ENT Inspection Neck: Full Range of Motion, Non-Tender, Normal, Normal Inspection Respiratory: Chest Non-Tender, Lungs Clear, No Accessory Muscle Use, No Respiratory Distress, Normal Breath Sounds Cardiovascular: No Edema, No JVD, No Murmur, No Gallop, Normal Peripheral Pulses, Regular Rate/Rhythm Breast Exam: Deferred Gastrointestinal: No Organomegaly, Non Tender, No Pulsatile Mass, Normal Bowel Sounds, Soft Genitalia: Deferred Pelvic: Deferred Rectal: Deferred Extremities: No calf tenderness, Normal capillary refill, Normal inspection, Normal range of motion, Non-tender, No pedal edema Musculoskeletal : Apperance: Normal Neurologic: Alert, No Motor Deficits, Normal Affect, Normal Mood Cerebellar Function: Normal Reflexes: Normal Skin: Dry, Normal Color, Warm Lymphatic: No Adenopathy Was a procedure done? Was a procedure done?: No CP Differential Dx Differential Diagnosis: Angina, Anxiety / Panic Attack Differential Diagnosis: HTN Essential Differential Diagnosis: Chest Wall Pain, Gastritis X-Ray, Labs, Meds, VS Vital Signs Date Time Temp Pulse Resp B/P (MAP) Pulse Ox O2 Delivery O2 Flow Rate FiO2 09/04/25 09:04 98.2 78 18 152/84 (106) 98 98.2 09/04/25 09:04 78 09/04/25 08:58 81 09/04/25 08:00 81 09/04/25 07:54 97.3 74 18 137/103 95 97.3 Lab Test 09/04/25 08:14 Range/Units White Blood Count 4.9 4.4-10.8 10^3/uL Red Blood Count 5.14 4.5-5.90 10^6/uL Hemoglobin 14.6 13.5-17.5 g/dL Hematocrit 44.9 41.0-53.0 % Mean Corpuscular Volume 87.5 80.0-100.0 fL Mean Corpuscular Hemoglobin 28.4 28.0-32.0 pg Mean Corpuscular Hemoglobin Concent 32.5 32.0-36.0 g/dL Red Cell Distribution Width 14.5 H 11.8-14.3 % Platelet Count 290 140-450 10^3/uL Mean Platelet Volume 7.2 6.9-10.8 fL Neutrophils (%) (Auto) 74.3 37.0-80.0 % Lymphocytes (%) (Auto) 11.1 10.0-50.0 % Monocytes (%) (Auto) 7.1 0.0-12.0 % Eosinophils (%) (Auto) 7.2 H 0.0-7.0 % Basophils (%) (Auto) 0.3 0.0-2.0 % Neutrophils # (Auto) 3.6 1.6-8.6 10 ^3/uL Lymphocytes # (Auto) 0.5 0.4-5.4 10 ^3/uL Monocytes # (Auto) 0.3 0-1.3 10 ^3/uL Eosinophils # (Auto) 0.4 0-0.8 10 ^3/uL Basophils # (Auto) 0 0-0.2 10 ^3/uL Nucleated Red Blood Cells 0.1 % Sodium Level 144 136-145 mmol/L Potassium Level 4.0 3.5-5.1 mmol/L Chloride Level 109 H 98-107 mmol/L Carbon Dioxide Level 25 20-31 mmol/L Anion Gap 10 5-15 Blood Urea Nitrogen 10 9-23 mg/dL Creatinine 1.19 0.700-1.30 mg/dL Glomerular Filtration Rate Calc 69 >90 mL/min BUN/Creatinine Ratio 8.4 L 10.0-20.0 Serum Glucose 102 74-106 mg/dL Calcium Level 9.7 8.7-10.4 mg/dL Troponin I High Sensitivity 34 </=54 ng/L Current Medications Medications (Trade) Dose Ordered Sig/Omayra Route Start Time Stop Time Status Last Admin Al Hydrox/Mg Hydrox/Simethicone (Maalox Plus) 15 ml ONCE ONCE PO 09/04/25 08:15 09/04/25 08:16 DC 09/04/25 08:26 [facility] [id number] [facility] [address] Ph: [phone] DIAGNOSTIC IMAGING Diagnostic Imaging Report : [id number] Signed PATIENT: OTILIA HOOD JRACCT: [id number] UNIT: [id number] : 1960 LOC: ER ROOM / BED: / AGE / SEX: 65 / M ADM STATUS: REG ER SERVICE 2 ORDERING PHYSICIAN: LEYDI SNOW MD PROCEDURE(s): CXRP - CHEST PORTABLE REASON: cp ORDER NUMBER(s): [id number], ACCESSION NUMBER(s): [id number] CLINICAL HISTORY: cp TECHNIQUE: Single view of the chest was obtained. COMPARISON: XY CHEST XRAY 1 VIEW on DOS: 12/27/24, XY CHEST PORTABLE on DOS: 12/04/22, XY CHEST TWO VIEWS ROUTINE on DOS: 12/03/22, XY CHEST PORTABLE on DOS: 12/02/22, XY CHEST PORTABLE on DOS: 11/30/22 FINDINGS: The heart size and pulmonary vasculature are normal. There is mild bilateral lower lung linear scarring. There is a 3ual lead left chest wall pacing device. IMPRESSION: NO ACUTE CARDIOPULMONARY PROCESS. Time of 1ST Reevaluation: :25 Reevaluation 1ST: Unchanged Patient Education/Counseling: Diagnosis, Treatment Family Education/Counseling: No Family Present SEPSIS Sepsis Screen Date sepsis recognized/suspect: Sep 04, 2025 Time Sepsis recognized/suspect: 0754 Recent Procedure: No On Antibiotic Therapy: No Respiratory Rate >20: No Heart Rate >90: No Temp<36 C (96.8 F) or >38.3 C: No SBP <90 or MAP <65 mmHG: No New Acute Mental Status Change: No Is the patient on CPAP, BIPAP,: No Physician Orders B-Type Natriuretic Peptide (09/04/25 08:13) Chest Portable (09/04/25 08:13) Electrocardigram (09/04/25 08:13) Troponin-I Hs (09/04/25 09:13) Troponin-I Hs (09/04/25 11:13) Electrocardigram (09/04/25 09:13) Electrocardigram (09/04/25 11:13) Ondansetron Hcl (Zofran) (09/04/25 09:30) Morphine Sulfate Injection (09/04/25 09:30) Vital Signs Date Time Temp Pulse Resp B/P (MAP) Pulse Ox O2 Delivery O2 Flow Rate FiO2 09/04/25 09:04 98.2 78 18 152/84 (106) 98 98.2 09/04/25 09:04 78 09/04/25 08:58 81 09/04/25 08:00 81 09/04/25 07:54 97.3 74 18 137/103 95 97.3 Laboratory Tests Test 09/04/25 08:14 White Blood Count 4.9 10^3/uL (4.4-10.8) Medications Medications Dose Ordered Sig/Omayra Route Start Time Stop Time Status Last Admin Dose Admin Al Hydrox/Mg Hydrox/Simethicone 15 ml ONCE ONCE PO 09/04/25 08:15 09/04/25 08:16 DC 09/04/25 08:26 Departure 1 Departure Time of Disposition: 09:22 (Patient presented with chest pain that was concerning for possible STEMI, ACS, PE, Pneumonia, Muscle Strain, COPD, Dissection. Data: 1. I ordered and reviewed the result of at least 3 labs including a CBC, BMP, and Troponin. 2. I independently interpreted the following tests: EKG which shows sinus arrhythmia and Chest X-ray which shows benign chest.Risk:This patient has a high risk of morbidity due to further diagnostic testing or treatment and may suffer from an acute cardiac or respiratory disorder. Workup reveals concern for ACS and patient should be admitted for further workup and possible expert consultation. ) Impression: Primary Impression: Acute chest pain Disposition: ADMITTED INPATIENT Admit to: Tele Condition: Guarded Critical Care Note Critical Care Time?: No Stability Stability form required: No Heart Score Heart Score: Heart Score Response (Comments) Value History Slightly Suspicious 0 EKG Normal 0 Age 45-64 1 Risk Factors 1 or 2 risk factors 1 Troponin N/A 0 Total 2 I personally scribed for LEYDI SNOW MD ([email or web address]) on 09/04/25 at 08:30. Electronically submitted by Cony Boyle ([email or web address]). I personally scribed for LEYDI SNOW MD ([email or web address]) on 09/04/25 at 09:19. Electronically submitted by Cony Boyle ([facility]). LEYDI SNOW MD Sep 04, 2025 08:30
[2025-09-04 08:49] LABS: Hematocrit 44.9 % (41.0-53.0); Hemoglobin 14.6 g/dL (13.5-17.5); Mean Corpuscular Hemoglobin 28.4 pg (28.0-32.0); Mean Corpuscular Volume 87.5 fL (80.0-100.0); Nucleated Red Blood Cells % 0.1 %
[2025-09-04 08:50] LABS: Potassium 4.0 mmol/L (3.5-5.1); Sodium 144 mmol/L (136-145)
[2025-09-04 08:51] LABS: Anion Gap 10 (5-15); Carbon Dioxide 25 mmol/L (20-31)
[2025-09-04 08:52] LABS: Calcium 9.7 mg/dL (8.7-10.4)
[2025-09-04 08:53] LABS: Chloride 109 mmol/L (98-107)
[2025-09-04 08:56] LABS: Glucose 102 mg/dL (74-106)
--- NOTE | 2025-09-04 09:10 | DVH ---
CLINICAL HISTORY: cp TECHNIQUE: Single view of the chest was obtained. COMPARISON: XY CHEST XRAY 1 VIEW on DOS: 12/27/24, XY CHEST PORTABLE on DOS: 12/04/22, XY CHEST TWO VIEWS ROUTINE on DOS: 12/03/22, XY CHEST PORTABLE on DOS: 12/02/22, XY CHEST PORTABLE on DOS: 11/30/22 FINDINGS: The heart size and pulmonary vasculature are normal. There is mild bilateral lower lung linear scarring. There is a 3ual lead left chest wall pacing device. IMPRESSION: NO ACUTE CARDIOPULMONARY PROCESS.
[2025-09-04 09:15] LABS: BUN/Creatinine Ratio 8.4 (10.0-20.0); Blood Urea Nitrogen 10 mg/dL (9-23)
[2025-09-04] MEDS: MORPHINE SULFATE 4 MG/ML SYR/VIAL IV ONE (09:57)
[2025-09-04] MEDS: ONDANSETRON HCL 4 MG/2 ML VIAL IV ONE (09:57)
--- NOTE | 2025-09-04 10:01 | DVHHP2 ---
History of Present Illness History of Present Illness 66-year-old male with extensive cardiac history including severe ischemic cardiomyopathy with reduced ejection fraction (last EF ~15%), status post biventricular ICD placement, multivessel coronary artery disease with multiple prior stents (last cardiac catheterization in 11/2021 showing patent stents), history of ventricular tachycardia, hypertension, and hyperlipidemia, who presents with worsening chest pain over the past two days. He reports intermittent chest discomfort in the past, however the pain has become more frequent and persistent. He describes the pain as a dull, pressure-like sensation located in the suprasternal region, non-radiating, associated with shortness of breath at rest. He denies syncope, palpitations, fever, cough, nausea, vomiting, or lower extremity pain. He follows with Dr. Posada in cardiology clinic and is compliant with his medications. Given his high-risk cardiac history, he is admitted for acute coronary syndrome evaluation and concern for possible heart failure exacerbation. PMH: Severe ischemic cardiomyopathy with HFrEF (EF ~15%), multivessel coronary artery disease status post multiple PCIs and stents, ventricular tachycardia, status post biventricular ICD, hypertension, hyperlipidemia, hyperthyroidism, prostate cancer status post chemotherapy (completed ~2 years ago) PSH: ICD placement, multiple coronary stent placements, no history of CABG Medications: Aspirin, carvedilol, clopidogrel, furosemide, mexiletine, nitroglycerin PRN, sacubitril/valsartan, simvastatin, sildenafil Allergies: Oysters Social History: Former smoker, quit 1 year ago; denies current alcohol or illicit drug use ROS: Negative except as noted in HPI Review of Systems Allergies: Uncoded Allergies: oysters (Allergy, Unknown, 03/02/22) hives Medications Current Medications Medications Dose Ordered Sig/Omayra Route Start Time Stop Time Status Last Admin Dose Admin Enoxaparin Sodium 40 mg DAILY SC 09/04/25 10:00 UNV Aspirin 81 mg DAILY PO 09/04/25 10:00 UNV Clopidogrel Bisulfate 75 mg DAILY PO 09/04/25 10:00 UNV Furosemide 20 mg DAILY IV 09/04/25 10:00 UNV Carvedilol 25 mg Q12HR PO 09/04/25 10:00 UNV Empaglifozin 10 mg DAILY PO 09/04/25 10:00 UNV Sacubitril/ Valsartan 2 tab BID PO 09/04/25 10:00 UNV Mexiletine HCl 150 mg BID PO 09/04/25 10:00 UNV Atorvastatin Calcium 40 mg HS PO 09/04/25 22:00 UNV Exam Vital Signs Vital Signs Date Time Temp Pulse Resp B/P (MAP) Pulse Ox O2 Delivery O2 Flow Rate FiO2 09/04/25 09:04 98.2 78 18 152/84 (106) 98 98.2 Exam Vital signs: Afebrile, HR 78, BP 152/84, SpO? stable on room air General: Alert, no acute distress Cardiac: Regular rate and rhythm, paced rhythm, no murmurs appreciated Lungs: Clear to auscultation bilaterally Abdomen: Soft, non-tender, non-distended Extremities: No peripheral edema Neuro: Alert and oriented, no focal deficits Labs/Xrays Labs Test 09/04/25 09:16 09/04/25 08:14 09/04/25 08:13 Range/Units White Blood Count 4.9 4.4-10.8 10^3/uL Red Blood Count 5.14 4.5-5.90 10^6/uL Hemoglobin 14.6 13.5-17.5 g/dL Hematocrit 44.9 41.0-53.0 % Mean Corpuscular Volume 87.5 80.0-100.0 fL Mean Corpuscular Hemoglobin 28.4 28.0-32.0 pg Mean Corpuscular Hemoglobin Concent 32.5 32.0-36.0 g/dL Red Cell Distribution Width 14.5 H 11.8-14.3 % Platelet Count 290 140-450 10^3/uL Mean Platelet Volume 7.2 6.9-10.8 fL Neutrophils (%) (Auto) 74.3 37.0-80.0 % Lymphocytes (%) (Auto) 11.1 10.0-50.0 % Monocytes (%) (Auto) 7.1 0.0-12.0 % Eosinophils (%) (Auto) 7.2 H 0.0-7.0 % Basophils (%) (Auto) 0.3 0.0-2.0 % Neutrophils # (Auto) 3.6 1.6-8.6 10 ^3/uL Lymphocytes # (Auto) 0.5 0.4-5.4 10 ^3/uL Monocytes # (Auto) 0.3 0-1.3 10 ^3/uL Eosinophils # (Auto) 0.4 0-0.8 10 ^3/uL Basophils # (Auto) 0 0-0.2 10 ^3/uL Nucleated Red Blood Cells 0.1 % Sodium Level 144 136-145 mmol/L Potassium Level 4.0 3.5-5.1 mmol/L Chloride Level 109 H 98-107 mmol/L Carbon Dioxide Level 25 20-31 mmol/L Anion Gap 10 5-15 Blood Urea Nitrogen 10 9-23 mg/dL Creatinine 1.19 0.700-1.30 mg/dL Glomerular Filtration Rate Calc 69 >90 mL/min BUN/Creatinine Ratio 8.4 L 10.0-20.0 Serum Glucose 102 74-106 mg/dL Calcium Level 9.7 8.7-10.4 mg/dL SEPSIS Sepsis Screen Date sepsis recognized/suspect: Sep 04, 2025 Time Sepsis recognized/suspect: 912 Recent Procedure: No On Antibiotic Therapy: No Respiratory Rate >20: No Heart Rate >90: No Temp<36 C (96.8 F) or >38.3 C: No SBP <90 or MAP <65 mmHG: No New Acute Mental Status Change: No Is the patient on CPAP, BIPAP,: No Physician Orders B-Type Natriuretic Peptide (09/04/25 08:13) Chest Portable (09/04/25 08:13) Electrocardigram (09/04/25 08:13) Troponin-I Hs (09/04/25 09:13) Troponin-I Hs (09/04/25 11:13) Electrocardigram (09/04/25 09:13) Electrocardigram (09/04/25 11:13) Admit (09/04/25 09:47) Code Status (09/04/25 09:47) Vital Signs .PER UNIT PROTOCOL (09/04/25 09:47) Review Orders With Adm.Md (09/04/25 09:47) Consistent Carb([facility])Diabetes (09/04/25 Lunch) Notify Md Of Changes From Base (09/04/25 09:47) Advance Directive (09/04/25 09:47) Urinalysis (09/04/25 09:47) Patient Condition (09/04/25 09:47) Allergies (09/04/25 09:47) Drug Screen (09/04/25 09:47) Hemoglobin A1c (09/04/25 09:47) Enoxaparin Sodium (Lovenox) (09/04/25 10:00) Oxygen By Nasal Cannula (09/04/25 09:47) Stat Ekg For Chest Pain (09/04/25 09:47) Notify Of Changes From Base (09/04/25 09:47) Crm Architect For 24 Hours (09/04/25 09:47) Emergency Dysrhythmia Protocol (09/04/25 09:47) Rhythm Strips Once Every Shift (09/04/25 09:47) * Cardiology Consult (09/04/25 09:47) Echo 2d Mode Cardiac Dop (09/04/25 09:47) Aspirin Chewable Tablet (09/04/25 10:00) Clopidogrel Bisulfate (Plavix) (09/04/25 10:00) Furosemide Injection (Lasix Injection) (09/04/25 10:00) Carvedilol Tablet (Coreg Tablet) (09/04/25 10:00) Empagliflozin (Jardiance) (09/04/25 10:00) Sacubitril-Valsartan (Entresto 24-26 Mg (09/04/25 10:00) Atorvastatin (Lipitor) (09/04/25 22:00) Mexiletine Hydrochloride (Mexitil) (09/04/25 10:00) Vital Signs Date Time Temp Pulse Resp B/P (MAP) Pulse Ox O2 Delivery O2 Flow Rate FiO2 09/04/25 09:04 98.2 78 18 152/84 (106) 98 98.2 09/04/25 09:04 78 09/04/25 08:58 81 09/04/25 08:00 81 09/04/25 07:54 97.3 74 18 137/103 95 97.3 Laboratory Tests Test 09/04/25 08:14 White Blood Count 4.9 10^3/uL (4.4-10.8) Medications Medications Dose Ordered Sig/Omayra Route Start Time Stop Time Status Last Admin Dose Admin Al Hydrox/Mg Hydrox/Simethicone 15 ml ONCE ONCE PO 09/04/25 08:15 09/04/25 08:16 DC 09/04/25 08:26 15 ML Assessment/Plan Assessment/Plan # Rule out Acute coronary syndrome, high-risk chest pain ([facility] [place]) Patient with severe ischemic cardiomyopathy and known multivessel CAD presenting with concerning chest pain and dyspnea. Initial EKG shows paced rhythm without acute ischemic changes; initial labs including BMP are unremarkable, troponin pending/early in course. High-risk features warrant inpatient ACS rule-out and cardiology involvement. Continue aspirin and clopidogrel, trend troponins, continuous telemetry, cardiology consult with Dr. Posada, consider repeat ischemic evaluation depending on clinical course. #Acute on chronic systolic heart failure # Severe ischemic cardiomyopathy with HFrEF (EF ~15%) ([facility] [place]) Known advanced systolic heart failure with severely reduced EF, dilated LV and LA, and valvular regurgitation per prior echo. Possible mild decompensation contributing to dyspnea. Continue guideline-directed medical therapy including beta-juana, ARNI, and diuretics; monitor volume status closely; repeat transthoracic echocardiogram ordered to reassess cardiac function and valves. # Ventricular tachycardia, status post biventricular ICD History of ventricular arrhythmias with ICD in place, currently on mexiletine. EKG shows paced rhythm without acute arrhythmia. Continue antiarrhythmic therapy, telemetry monitoring. # Coronary artery disease with prior multivessel PCI Extensive CAD with prior stents including RCA/PDA, last cath in 2021 showing patent stents and no significant progression. Continue dual antiplatelet therapy and aggressive risk factor modification. # Hypertension Blood pressure mildly elevated on admission. Continue home antihypertensive regimen and adjust as needed while inpatient. # Hyperlipidemia Continue statin therapy. # Hyperthyroidism? TSH ordered # History of prostate cancer, status post chemotherapy Completed treatment two years ago, no acute oncologic issues at this time. Case discussed with Dr Gonzáles Full code Plan discussed with: Patient, Other (rn) My Orders Orders - ZHOU LERMA RESIDENT Procedure Category Date Status Time Admit ADMIT 09/04/25 Transmitted 09:47 Code Status CODE 09/04/25 Transmitted 09:47 Vital Signs [facility] 09/04/25 In Process 09:47 Review Orders With [facility] 09/04/25 In Process Adm. 09:47 Consistent DIET 09/04/25 [facility]Diabetes Lunch Notify Md Of Changes [facility] 09/04/25 In Process From Base 09:47 Advance Directive [facility] 09/04/25 In Process 09:47 Urinalysis LAB 09/04/25 Logged 09:47 Patient Condition ORDERS 09/04/25 Transmitted 09:47 Allergies [facility] 09/04/25 In Process 09:47 Drug Screen LAB 09/04/25 Logged 09:47 Hemoglobin A1c LAB 09/04/25 Logged 09:47 Enoxaparin Sodium PHA 09/04/25 Logged (Lovenox) 10:00 Oxygen By Nasal RT 09/04/25 Transmitted Cannula 09:47 Stat Ekg For Chest [facility] 09/04/25 In Process Pain 09:47 Notify Of Changes [facility] 09/04/25 In Process From Base 09:47 Crm Architect For [facility] 09/04/25 In Process 24 Hours 09:47 Emergency Dysrhythmia [facility] 09/04/25 In Process Protocol 09:47 Rhythm Strips Once [facility] 09/04/25 In Process Every Shift 09:47 * Cardiology Consult CONS 09/04/25 Transmitted 09:47 Echo 2d Mode Cardiac US 09/04/25 Logged DOP 09:47 Aspirin Chewable PHA 09/04/25 Logged Tablet 10:00 Clopidogrel Bisulfate PHA 09/04/25 Logged (Plavix) 10:00 Furosemide Injection PHA 09/04/25 Logged (Lasix Injection) 10:00 Carvedilol Tablet PHA 09/04/25 Transmitted (Coreg Tablet) 10:00 Empagliflozin PHA 09/04/25 Transmitted (Jardiance) 10:00 Sacubitril-Valsartan PHA 09/04/25 Transmitted (Entresto 24-26 Mg 10:00 Atorvastatin (Lipitor) PHA 09/04/25 Transmitted 22:00 Mexiletine PHA 09/04/25 Transmitted Hydrochloride 10:00 Date of Service: Sep 04, 2025 Billing Provider: JARVIS GONZÁLES MD Common Visit Codes: [id number] INP/OBS CARE (HIGH) Secondary Visit Codes: [id number] CARE PLAN 30 MINUTES ZHOU LERMA RESIDENT Sep 04, 2025 10:01
[2025-09-04 10:27] LABS: Urine Protein, UAD TRACE (Negative)
--- NOTE | 2025-09-04 10:43 | ECG ---
[facility] Test Date: 2025-09-04 Test Time: 08:58:13 Pat Name: OTILIA HOOD Department: ED Room: 0245T Gender: M Analytics Director: JASON : 1960 Requested By: LEYDI SNOW Order Number: [id number] Reading MD: Justin Quintana Measurements Intervals [place] Rate: 79 P: 0 NM: 52 QRS: -16 QRSD: 162 T: 143 QT: 437 QTc: 502 Interpretive Statements Atrial-sensed ventricular-paced rhythm No further analysis attempted due to paced rhythm Electronically Signed On 09-10-2025 8:27:09 PST by Justin Quintana Please click the below link to view image of tracing.
--- NOTE | 2025-09-04 10:44 | ECG ---
[facility] Test Date: 2025-09-04 Test Time: 08:58:49 Pat Name: OTILIA HOOD Department: ED Room: 0245T Gender: M Process Improvement Specialist: JASON : 1960 Requested By: LEYDI SNOW Order Number: [id number] Reading MD: Justin Quintana Measurements Intervals [place] Rate: 81 P: 138 SD: 56 QRS: -33 QRSD: 146 T: 162 QT: 436 QTc: 506 Interpretive Statements Atrial-sensed ventricular-paced complexes No further analysis attempted due to paced rhythm Electronically Signed On 09-10-2025 8:27:16 PST by Justin Quintana Please click the below link to view image of tracing.
[2025-09-04 10:45] LABS: Amphetamine Screen, Urine Neg (NEGATIVE); Barbiturate Scree,Urine Neg (NEGATIVE); Benzodiazephine Screen, Urine Neg (NEGATIVE); Cannabinoid Screen, Urine Neg (NEGATIVE); Cocaine Screen, Urine Neg (NEGATIVE); Opiate Scree,Urine Neg (NEGATIVE); Phencyclidine Screen, Urine Neg (NEGATIVE)
[2025-09-04] MEDS: ENOXAPARIN SOD 40 MG/0.4 ML SYRINGE SC SCH (10:46)
[2025-09-04] MEDS: EMPAGLIFLOZIN 10 MG TAB PO SCH (10:46)
[2025-09-04] MEDS: CARVEDILOL 12.5 MG TAB PO SCH (10:49)
[2025-09-04] MEDS: CLOPIDOGREL BISULFATE 75 MG TAB PO SCH (10:49)
[2025-09-04] MEDS: MEXILETINE HYDROCHLORIDE 150 MG CAP PO SCH (10:50)
[2025-09-04] MEDS: FUROSEMIDE 20 MG/2 ML VIAL IV SCH (10:53)
[2025-09-04] MEDS: SACUBITRIL-VALSARTAN 24mg/26mg TAB PO SCH (10:53)
[2025-09-04 13:30] VITALS: BP 139/83; PULSE 54; PULSE 75; RESP 18; RESP 20; TEMP 97.4; O2SAT 93; O2SAT 95
[2025-09-04 16:40] VITALS: BP 137/88; PULSE 70; RESP 20; TEMP 97.8; O2SAT 99
[2025-09-04 20:00] VITALS: PULSE 136
[2025-09-04 21:00] VITALS: BP 127/94; PULSE 71; RESP 18; TEMP 97.9; O2SAT 96
--- NOTE | 2025-09-04 21:22 | DVHSR ---
APPROVED REPORT EXAM: Two-dimensional and M-mode echocardiogram with Doppler and color Doppler. Blood Pressure: 138/85 mmHg INDICATION Chest Pain RISK FACTORS Height: 5' 9", Weight: 220 DIMENSIONS LVDd 6.9 (3.8-5.7cm) LA (2D) 5.0 (1.9-4.0cm) Aortic Root 3.5 (2.0-3.7cm) LVDs 6.8 (2.5-4.0cm) LA (MM) (1.9-4.0cm) Aortic Cusp Exc 1.9 (1.5-2.0cm) EF (%) 5.0 (55-70%) Rt. Atrium 4.5 (1.9-4.0cm) Asc. Aorta cm IVSd 0.8 (0.7-1.1cm) RV (D) (1.8-2.4cm) PWd 0.9 (0.7-1.1cm) Mitral Valve Mitral Mitral Stenosis E wave 1.00m/s MV Mean GR. mmHg A wave 0.40m/s MV Peak GR. mmHg E/A ratio 2.5 2D MVA cm2 Aortic Valve Aortic Valve Aortic Stenosis V1 0.40m/s AO Mean GR. 4mmHg V2 1.30m/s AO Peak GR. 7mmHg LVOT Diameter 2.7 (1.8-2.4cm) Doppler SAMUEL 1.76cm2 Conclusion LV EF IS ONLY 5% AND IS REMARKABLY REDUCED END STAGE DILATED CARDIOMYOPATHY SEVERE GLOBAL HYPOKINESIS OF ALL CARDIAC CHAMBERS NORMAL VALVES NO EFFUSION
[2025-09-04] MEDS: ATORVASTATIN 20 MG TAB PO SCH (22:08)
[2025-09-05] VITALS (8 sets, daily range): BP systolic 106–136; BP diastolic 74–88; PULSE 58–110; RESP 16–20; TEMP 96.7–98.7; O2SAT 96–100
[2025-09-05 10:00] LABS: Hematocrit 39.0 % (41.0-53.0); Hemoglobin 12.9 g/dL (13.5-17.5); Mean Corpuscular Hemoglobin 28.5 pg (28.0-32.0); Mean Corpuscular Volume 85.9 fL (80.0-100.0); Nucleated Red Blood Cells % 0.1 %
[2025-09-05 10:08] LABS: Alanine Aminotransferase 11 U/L (7-40); Albumin 3.9 g/dL (3.2-4.8); Alkaline Phosphatase 74 U/L (46-116); Anion Gap 10 (5-15); BUN/Creatinine Ratio 8.5 (10.0-20.0); Blood Urea Nitrogen 10 mg/dL (9-23); Calcium 9.2 mg/dL (8.7-10.4); Carbon Dioxide 27 mmol/L (20-31); Chloride 106 mmol/L (98-107); Cholesterol 121 mg/dL (< 200); Magnesium 2.1 mg/dL (1.6-2.6); Potassium 3.8 mmol/L (3.5-5.1); Sodium 143 mmol/L (136-145); Total Protein 6.8 g/dL (5.7-8.2); Triglycerides 116 mg/dL (< 150)
[2025-09-05 10:09] LABS: Bilirubin, Total 0.9 mg/dL (0.2-1.0); Glucose 127 mg/dL (74-106); HDL Cholesterol 26 mg/dL (40-59)
[2025-09-05 10:19] LABS: Lipase 38 U/L (12-53)
[2025-09-05 10:23] LABS: INR 1.08 (0.9-1.15); Partial Thromboplastin Time 27.1 SEC (24.5-34.5); Prothrombin Time 11.4 sec (9.3-11.8)
--- NOTE | 2025-09-05 14:28 | DVHPNRES ---
Progress Note Date Seen: Sep 05, 2025 Resident Creating Document: KINSEY ARNETT RESIDENT Medical Necessity Reason Pt with a Central, PICC or Fol: No Subjective Review of Systems Patient seen and examined at bedside. Currently has no new complaint. Reviewed telemetry which showed non sustained monomorphic ventricular tachycardia. Reviewed echocardiogram which showed reduction in LVED from 15 to 5% in less than 1 year. Consulted cardiology who recommended transfer to [facility] for eventual coronary angiography with LV assistance. Objective vital signs Vital Sign Date Time Temp Pulse Resp B/P (MAP) Pulse Ox O2 Delivery O2 Flow Rate FiO2 09/05/25 10:34 68 09/05/25 09:34 136/87 09/05/25 09:00 98.7 20 99 98.7 09/05/25 07:45 Room Air* 0 21 Total Intake and Output 09/04/25 09/04/25 09/05/25 15:00 23:00 07:00 Intake Total 0 ml 640 ml Output Total 0 ml Balance 0 ml 640 ml medications Current Medications Medications Dose Ordered Sig/Omayra Route Start Time Stop Time Status Last Admin Dose Admin Enoxaparin Sodium 40 mg DAILY SC 09/04/25 10:00 09/05/25 09:35 40 MG Aspirin 81 mg DAILY PO 09/04/25 10:00 09/05/25 09:34 81 MG Clopidogrel Bisulfate 75 mg DAILY PO 09/04/25 10:00 09/05/25 09:35 75 MG Furosemide 20 mg DAILY IV 09/04/25 10:00 09/05/25 09:34 20 MG Carvedilol 25 mg Q12HR PO 09/04/25 10:00 09/05/25 09:34 25 MG Empaglifozin 10 mg DAILY PO 09/04/25 10:00 09/05/25 09:35 10 MG Mexiletine HCl 150 mg BID PO 09/04/25 10:00 09/05/25 11:40 150 MG Atorvastatin Calcium 40 mg HS PO 09/04/25 22:00 09/04/25 22:08 40 MG Sacubitril/ Valsartan 1 tab BID PO 09/06/25 10:00 UNV Examination Patient lying in bed, in no acute distress General: Lucid, afebrile, mucosae are moist Cardiovascular: Normal S1 and S2. No murmurs, gallops or rubs Respiratory: Normal ventilation mechanics. Clear lung sounds on auscultation Abdomen: Soft, nontender, no organomegaly, normal bowel sounds MSK/skin: Mobilizes 4 limbs. Skin is dry and warm Neurological: Oriented in 3 spheres. No motor no sensitive deficits. Pupils are isocoric and reactive laboratory and microbiology Laboratory Tests 09/05/25 09:19 Test 09/05/25 09:19 Range/Units Serum Glucose 127 H 74-106 mg/dL Problem List/Assessment/Plan Problem List/Assessment/Plan ASSESSMENT Rule out Acute coronary artery diseaase coronary artery disease Coronary artery disease status post multiple PTCAs x4 NADINE (on Plavix and aspirin) Acute on chronic systolic congestive heart failure (HFrEF, LVEF 5%) - s/p APPLICATION PACKAGER-d placement End-stage dilated ischemic cardiomyopathy - PEnding advance heart failure evaluation Nonsustained V-tach Hypertension Dyslipidemia Obstructive sleep apnea with CPAP use at night Questionable Hyperthyroidism History prostate cancer status post chemotherapy Obesity PLAN Completed echocardiogram which showed LVEF 5%, end stage cardiomyopathy, severe global hypokenisis. Consulted cardiology: Recommends coronary angiography in [facility] due to complex history. High risk patient/ Continue with optimal medical therapy. Goals of care discussed with patient for over 18 minutes: Full code status. Discussed plan with Dr Gonzáles, patient and nurses: Current;y on telemetry status. Patient will benefit from evaluation in [facility] for eventual complex coronary angiography. PAtient agrees with ongoing plan. Plan discussed with: Patient, Spouse, Other (Nurses) My Orders My Orders Orders - KINSEY ARNETT Procedure Category Date Status Time Vitamin D, 25-Hydroxy LAB 09/05/25 In Process 08:31 Vitamin B12 LAB 09/05/25 In Process 08:31 Electrocardigram EKG 09/05/25 Logged 08:31 * Cardiology Consult CONS 09/05/25 Transmitted 10:47 Visit Coding STANDARD RES Billing Provider: JARVIS GONZÁLES MD Date of Service if different f: Sep 05, 2025 Common Visit Codes: [id number] INP/OBS CARE(HIGH) KINSEY ARNETT RESIDENT Sep 05, 2025 14:28
--- NOTE | 2025-09-05 15:28 | DVHINCON2 ---
Date Seen: Sep 05, 2025 Referring Physician MD [place] resident Reason for Consultation NSVT, EF 5% History of Present Illness This is a 65-year-old male patient who presents to emergency room with chief complaint of chest pressure. The patient reports that the chest pressure began on 09/02/2025 in the morning. He describes the pain as unprovoked, constant, pressure-like in nature, substernal without radiation. He also reports associated shortness of breath. He came to the emergency room for further evaluation. Initial twelve lead electrocardiogram reveals a paced rhythm. Initial troponin level of 34ng/L with down trend thereafter. 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 The patient follows up with proofreader in the outpatient setting. Of note, the patient underwent a coronary angiogram with left heart catheterization on 03/06/2022 which revealed mild coronary artery disease and no change to left system from 2019. The patient states that he has not had any other coronary angiograms since then. Past Medical History Past medical history reviewed. No other significant than mentioned above. Past Surgical History INTERNATIONAL TRADE COMPLIANCE MANAGER-D implantation on March 13, 2020 Multiple PTCAs Family History: Cardiovascular disease Cerebrovascular accident (CVA) G8 FATHER Family history: Congenital anomaly Family history: Diabetes mellitus Family history: Hypertension Prostate carcinoma G8 FATHER Family History Family history reviewed. 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 Patient has a 20 pack-year history, quit 20 years ago Denies alcohol use Allergies: Uncoded Allergies: oysters (Allergy, Unknown, 03/02/22) hives Home Meds Active Scripts Empagliflozin (Jardiance) 10 Mg Tab, 10 MG PO DAILY, #30 TAB Prov:JOSE DAVID JAIMES MD 12/05/22 Simvastatin (Simvastatin) 40 Mg Tab, 40 MG PO DAILY, #30 TAB Prov:DORIS BETANCOURT MD 02/12/19 Aspirin (Aspir-Low) 81 Mg Tab, 81 MG PO DAILY for 30 Days, #30 MG Prov:DORIS BETANCOURT MD 02/12/19 Clopidogrel Bisulfate (Plavix) 75 Mg Tab, 1 TAB PO DAILY, #30 TAB 1 Refill Prov:DORIS BETANCOURT MD 02/12/19 Furosemide (Furosemide) 20 Mg Tab, 20 MG PO DAILY for 30 Days, MG Prov:DORIS BETANCOURT MD 02/12/19 Reported Medications Mexiletine Hcl (Mexiletine Hcl) 150 Mg Cap, 1 CAP PO BID 12/01/22 Sacubitril-Valsartan (Entresto 49-51 mg) 1 Tab Tab, 1 TAB PO BID, TAB 03/02/22 Sildenafil Citrate (Viagra) 100 Mg Tab, 100 MG PO 2XW PRN for for sexual activity 03/02/22 Carvedilol (Carvedilol) 25 Mg Tab, 25 MG PO Q12HR 03/02/22 Nitroglycerin (NTROSTAT SUBLINGUAL) 0.4 Mg Sl, 0.4 MG SL PRN *MAY REPEAT EVERY 5 MINUTES X 3 TOTAL IF NO RELIEF, INITIATE ANALGESIC THERAPY. NOTIFY PHYSICIAN *Do not crush. 02/09/19 Home Meds Home medications reviewed. Current Medications Current Medications Medications (Trade) Dose Ordered Sig/Omayra Route PRN Reason Start Time Stop Time Status Last Admin Atorvastatin Calcium (Lipitor) 40 mg HS PO 09/04/25 22:00 09/04/25 22:08 Sacubitril/ Valsartan (Entresto 24-26 Mg tab) 1 tab BID PO 09/06/25 10:00 Pantoprazole Sodium (Protonix Tablet) 40 mg DAILY@0600 PO 09/06/25 06:00 Spironolactone (Aldactone) 25 mg DAILY PO 09/06/25 10:00 Review of Systems Constitutional: No symptom reported Ears, Nose, & Throat: No symptom reported Eyes: No symptom reported Neurological: No symptoms reported Pulmonary/Respiratory: No symptoms reported Cardiovascular: Chest pain Gastrointestinal: No symptom reported Genitourinary: No symptom reported Musculoskeletal: No symptom reported Skin: No symptom reported Psychiatric: No symptom reported Endocrine: No symptom reported Hematologic/Lymphatic: No symptom reported Vital Signs Vital Signs Date Time Temp Pulse Resp B/P (MAP) Pulse Ox O2 Delivery O2 Flow Rate FiO2 09/05/25 13:00 97.0 66 19 118/82 (94) 99 97.0 09/05/25 07:45 Room Air* 0 21 Physical Exam General Appearance: Cooperative. Morbidly obese Pulmonary/Respiratory: Clear, bilateral breaths sounds. Cardiovascular/Chest: Regular rate and rhythm. Peripheral Pulses: 2+ Radial (R). 2+ Radial (L). 2+ Pedal (R). 2+ Pedal (L) Abdominal Exam: Normal bowel sounds. Ankle Exam: Negative ankle edema Lower extremities: Negative lower extremity edema Neuro/Mental Status: A/OX4, coherent. Thoughts/Psych: Normal thought pattern. Appropriate mood and affect. Good judgment and insight. Appearance: No acute distress. Skin Exam: Normal inspection. Normal color. Warm and dry. Labs/Diagnostic Data Labs Test 09/05/25 09:19 09/04/25 14:45 09/04/25 09:47 09/04/25 08:13 Range/Units White Blood Count 4.6 4.4-10.8 10^3/uL Red Blood Count 4.54 4.5-5.90 10^6/uL Hemoglobin 12.9 L 13.5-17.5 g/dL Hematocrit 39.0 #L 41.0-53.0 % Mean Corpuscular Volume 85.9 80.0-100.0 fL Mean Corpuscular Hemoglobin 28.5 28.0-32.0 pg Mean Corpuscular Hemoglobin Concent 33.1 32.0-36.0 g/dL Red Cell Distribution Width 13.9 11.8-14.3 % Platelet Count 255 140-450 10^3/uL Mean Platelet Volume 7.6 6.9-10.8 fL Neutrophils (%) (Auto) 74.1 37.0-80.0 % Lymphocytes (%) (Auto) 9.9 L 10.0-50.0 % Monocytes (%) (Auto) 7.3 0.0-12.0 % Eosinophils (%) (Auto) 8.4 H 0.0-7.0 % Basophils (%) (Auto) 0.3 0.0-2.0 % Neutrophils # (Auto) 3.4 1.6-8.6 10 ^3/uL Lymphocytes # (Auto) 0.5 0.4-5.4 10 ^3/uL Monocytes # (Auto) 0.3 0-1.3 10 ^3/uL Eosinophils # (Auto) 0.4 0-0.8 10 ^3/uL Basophils # (Auto) 0 0-0.2 10 ^3/uL Nucleated Red Blood Cells 0.1 % Prothrombin Time 11.4 9.3-11.8 sec Prothrombin Time INR 1.08 0.9-1.15 Activated Partial Thromboplast Time 27.1 24.5-34.5 SEC Sodium Level 143 136-145 mmol/L Potassium Level 3.8 3.5-5.1 mmol/L Chloride Level 106 98-107 mmol/L Carbon Dioxide Level 27 20-31 mmol/L Anion Gap 10 5-15 Blood Urea Nitrogen 10 9-23 mg/dL Creatinine 1.18 0.700-1.30 mg/dL Glomerular Filtration Rate Calc 69 >90 mL/min BUN/Creatinine Ratio 8.5 L 10.0-20.0 Serum Glucose 127 H 74-106 mg/dL Lactic Acid Level 0.9 0.4-2.0 mmol/L Calcium Level 9.2 8.7-10.4 mg/dL Phosphorus Level 3.1 2.4-5.1 mg/dL Magnesium Level 2.1 1.6-2.6 mg/dL Total Bilirubin 0.9 0.2-1.0 mg/dL Aspartate Amino Transferase (AST) 12 L 13-40 U/L Alanine Aminotransferase (ALT) 11 7-40 U/L Alkaline Phosphatase 74 46-116 U/L Total Protein 6.8 5.7-8.2 g/dL Albumin 3.9 3.2-4.8 g/dL Triglycerides Level 116 < 150 mg/dL Cholesterol Level 121 < 200 mg/dL LDL Cholesterol 79 < 100 mg/dL HDL Cholesterol 26 L 40-59 mg/dL Lipase 38 12-53 U/L Thyroid Stimulating Hormone (TSH) 1.12 0.55-4.78 uIU/mL Troponin I High Sensitivity 29 </=54 ng/L Urine Color Light-yellow Yellow Urine Clarity Clear Clear Urine pH 5.0 5.0-9.0 Urine Specific [place] 1.015 1.001-1.035 Urine Protein Trace H Negative Urine Ketones Negative Negative Urine Blood Negative Negative /uL Urine Nitrite Negative Negative Urine Bilirubin Negative Negative Urine Urobilinogen Normal Negative mg/dL Urine Leukocyte Esterase Negative Negative /uL Urine RBC 1 0 - 3 /hpf Urine Microscopic WBC 1 0-3 /HPF Urine Squamous Epithelial Cells None seen <5 /hpf Urine Bacteria None seen None Seen /hpf Urine Glucose Normal Normal mg/dL Hemoglobin A1c 5.9 H <5.7 % A1C Urine Opiates Screen Neg NEGATIVE Urine Fentanyl Screen Neg NEGATIVE Urine Barbiturates Screen Neg NEGATIVE Urine Phencyclidine Screen Neg NEGATIVE Urine Amphetamines Screen Neg NEGATIVE Urine Benzodiazepines Screen Neg NEGATIVE Urine Cocaine Screen Neg NEGATIVE Urine Cannabinoids Screen Neg NEGATIVE B-Type Natriuretic Peptide 659.32 0-100 pg/mL Assessment Chest pain, rule out progressive coronary artery disease Severe coronary artery disease status post multiple PTCAs x4 NADINE (on Plavix and aspirin) Ischemic cardiomyopathy Chronic HFrEF, NYHA class II End-stage dilated cardiomyopathy Nonsustained V-tach Hypertension Dyslipidemia Obstructive sleep apnea with CPAP use at night History prostate cancer status post chemotherapy Remote history of polysubstance use Morbid obesity Plan/Recommendation We will continue with the following plan/recommendations (Dr. Guzman): Case reviewed and discussed with including transthoracic echocardiogram, pertinent lab values, and 12 lead electrocardiogram. A transthoracic echocardiogram reveals an EF of 5% with end-stage dilated cardiomyopathy. Given the patient's clinical presentation, and comorbidities, ischemic workup should be considered. Given that this is a high-risk patient for this facility with EF of only 5%, consider transfer to higher level of care for further workup. Patient should also be evaluated at tertiary center for possible cardiac transplant. In the meantime, continue guideline medical therapy for CHF as tolerated. Continue with the patient's antiarrhythmic agent mexiletine. Continue with antiplatelet therapy and lipid-lowering agent. Close cardiac surveillance via telemetry monitoring. Notify Cardiology immediately for any ECG changes. Thank you for allowing us to care for this patient. Please call with any questions or concerns. Critical care time spent: 44 minutes This medical document was created using an electronic medical record system with voice recognition software and computerized dictation system. Although this document has been carefully reviewed, there might still be some phonetic and typographical errors. Occasional wrong-word or ``sound-alike substitutions may have occurred due to the inherent limitations of voice recognition software. These areas are purely typographical due to imperfections of the software programs and do not reflect any compromise in the patient's medical care. Please read the chart carefully and recognize, using context, where these substitutions have occurred. Plan discussed with: Patient NYHA Physical activity limitations: Class2(Slight)fatigue,sob (palpitatns, angina w activityv) Date of Service: Sep 05, 2025 Billing Provider: VINCENT SHOEMAKER Cardiology Common Codes: 69402-MUBNTVI INP/OBS CARE (High) Cardiology Consultation Codes: 50608-[id number] CONSULT <45MIN VINCENT SHOEMAKER Sep 05, 2025 15:28
[2025-09-05] MEDS: POLYETHYLENE GLYCOL 17 GM PWDR PO PRN (17:05)
--- NOTE | 2025-09-05 22:24 | DVHINCON2 ---
Date Seen: Sep 05, 2025 Referring Physician MD [place] resident Reason for Consultation NSVT, EF 5% History of Present Illness This is a 65-year-old male with a past medical history of severe coronary artery disease status post multiple PTCAs x 4 NADINE (on ASA and Plavix), ischemic cardiomyopathy, congestive heart failure, presence of REGULATORY PRODUCT MANAGER-D ([place] [employer]), V-tach, hypertension, dyslipidemia, obstructive sleep apnea with CPAP use at night, gastritis, irritable bowel syndrome, prostate cancer status post chemotherapy, remote history of polysubstance abuse and morbid obesity who presents to emergency room with a complaint of chest pressure. The patient reports that the chest pressure began on 09/02/2025 in the morning. He describes the pain as unprovoked, constant, pressure-like in nature, substernal without radiation. He also reports associated shortness of breath. He came to the emergency room for further evaluation. Initial twelve lead electrocardiogram reveals a paced rhythm. Initial troponin level of 34ng/L with down trend thereafter. The patient follows up with clay burner in the outpatient setting. Of note, the patient underwent a coronary angiogram with left heart catheterization on 03/06/2022 which revealed mild coronary artery disease and no change to left system from 2019. The patient states that he has not had any other coronary angiograms since then.Patient was admitted to the hospital. I am asked to consult on this patient. Past Medical History Past medical history reviewed. No other significant than mentioned above. Past Surgical History REGULATORY PRODUCT MANAGER-D implantation on March 13, 2020 Multiple PTCAs Family History: Cardiovascular disease Cerebrovascular accident (CVA) G8 FATHER Family history: Congenital anomaly Family history: Diabetes mellitus Family history: Hypertension Prostate carcinoma G8 FATHER Allergies: Uncoded Allergies: oysters (Allergy, Unknown, 03/02/22) hives Home Meds Active Scripts Empagliflozin (Jardiance) 10 Mg Tab, 10 MG PO DAILY, #30 TAB Prov:JOSE DAVID JAIMES MD 12/05/22 Simvastatin (Simvastatin) 40 Mg Tab, 40 MG PO DAILY, #30 TAB Prov:DORIS BETANCOURT MD 02/12/19 Aspirin (Aspir-Low) 81 Mg Tab, 81 MG PO DAILY for 30 Days, #30 MG Prov:DORIS BETANCOURT MD 02/12/19 Clopidogrel Bisulfate (Plavix) 75 Mg Tab, 1 TAB PO DAILY, #30 TAB 1 Refill Prov:DORIS BETANCOURT MD 02/12/19 Furosemide (Furosemide) 20 Mg Tab, 20 MG PO DAILY for 30 Days, MG Prov:DORIS BETANCOURT MD 02/12/19 Reported Medications Mexiletine Hcl (Mexiletine Hcl) 150 Mg Cap, 1 CAP PO BID 12/01/22 Sacubitril-Valsartan (Entresto 49-51 mg) 1 Tab Tab, 1 TAB PO BID, TAB 03/02/22 Sildenafil Citrate (Viagra) 100 Mg Tab, 100 MG PO 2XW PRN for for sexual activity 03/02/22 Carvedilol (Carvedilol) 25 Mg Tab, 25 MG PO Q12HR 03/02/22 Nitroglycerin (NTROSTAT SUBLINGUAL) 0.4 Mg Sl, 0.4 MG SL PRN *MAY REPEAT EVERY 5 MINUTES X 3 TOTAL IF NO RELIEF, INITIATE ANALGESIC THERAPY. NOTIFY PHYSICIAN *Do not crush. 02/09/19 Current Medications Current Medications Medications (Trade) Dose Ordered Sig/Omayra Route PRN Reason Start Time Stop Time Status Last Admin Atorvastatin Calcium (Lipitor) 40 mg HS PO 09/04/25 22:00 09/04/25 22:08 Sacubitril/ Valsartan (Entresto 24-26 Mg tab) 1 tab BID PO 09/06/25 10:00 Pantoprazole Sodium (Protonix Tablet) 40 mg DAILY@0600 PO 09/06/25 06:00 Spironolactone (Aldactone) 25 mg DAILY PO 09/06/25 10:00 Polyethylene Glycol (Miralax 17GM Powder) 17 gm DAILYPRN PRN PO FOR CONSTIPATION 09/05/25 16:15 UNV Review of Systems Constitutional: No symptom reported Ears, Nose, & Throat: No symptom reported Eyes: No symptom reported Neurological: No symptoms reported Pulmonary/Respiratory: No symptoms reported Cardiovascular: Chest pain Gastrointestinal: No symptom reported Genitourinary: No symptom reported Musculoskeletal: No symptom reported Skin: No symptom reported Psychiatric: No symptom reported Endocrine: No symptom reported Hematologic/Lymphatic: No symptom reported Vital Signs Vital Signs Date Time Temp Pulse Resp B/P (MAP) Pulse Ox O2 Delivery O2 Flow Rate FiO2 09/05/25 13:00 97.0 66 19 118/82 (94) 99 97.0 09/05/25 07:45 Room Air* 0 21 Physical Exam GENERAL: Alert and oriented x 3. No acute distress. Morbidly obese. EYES: PERRL, EOMI. Anicteric. HENT: Moist mucous membranes. LUNGS: Clear to auscultation bilaterally. CARDIOVASCULAR: Regular rate and rhythm. ABDOMEN: Soft, nontender and nondistended. EXTREMITIES: No edema. NEUROLOGIC: No focal neurological deficits. SKIN: Warm, dry. Labs/Diagnostic Data Labs Test 09/05/25 09:19 09/04/25 14:45 09/04/25 09:47 09/04/25 08:13 Range/Units White Blood Count 4.6 4.4-10.8 10^3/uL Red Blood Count 4.54 4.5-5.90 10^6/uL Hemoglobin 12.9 L 13.5-17.5 g/dL Hematocrit 39.0 #L 41.0-53.0 % Mean Corpuscular Volume 85.9 80.0-100.0 fL Mean Corpuscular Hemoglobin 28.5 28.0-32.0 pg Mean Corpuscular Hemoglobin Concent 33.1 32.0-36.0 g/dL Red Cell Distribution Width 13.9 11.8-14.3 % Platelet Count 255 140-450 10^3/uL Mean Platelet Volume 7.6 6.9-10.8 fL Neutrophils (%) (Auto) 74.1 37.0-80.0 % Lymphocytes (%) (Auto) 9.9 L 10.0-50.0 % Monocytes (%) (Auto) 7.3 0.0-12.0 % Eosinophils (%) (Auto) 8.4 H 0.0-7.0 % Basophils (%) (Auto) 0.3 0.0-2.0 % Neutrophils # (Auto) 3.4 1.6-8.6 10 ^3/uL Lymphocytes # (Auto) 0.5 0.4-5.4 10 ^3/uL Monocytes # (Auto) 0.3 0-1.3 10 ^3/uL Eosinophils # (Auto) 0.4 0-0.8 10 ^3/uL Basophils # (Auto) 0 0-0.2 10 ^3/uL Nucleated Red Blood Cells 0.1 % Prothrombin Time 11.4 9.3-11.8 sec Prothrombin Time INR 1.08 0.9-1.15 Activated Partial Thromboplast Time 27.1 24.5-34.5 SEC Sodium Level 143 136-145 mmol/L Potassium Level 3.8 3.5-5.1 mmol/L Chloride Level 106 98-107 mmol/L Carbon Dioxide Level 27 20-31 mmol/L Anion Gap 10 5-15 Blood Urea Nitrogen 10 9-23 mg/dL Creatinine 1.18 0.700-1.30 mg/dL Glomerular Filtration Rate Calc 69 >90 mL/min BUN/Creatinine Ratio 8.5 L 10.0-20.0 Serum Glucose 127 H 74-106 mg/dL Lactic Acid Level 0.9 0.4-2.0 mmol/L Calcium Level 9.2 8.7-10.4 mg/dL Phosphorus Level 3.1 2.4-5.1 mg/dL Magnesium Level 2.1 1.6-2.6 mg/dL Total Bilirubin 0.9 0.2-1.0 mg/dL Aspartate Amino Transferase (AST) 12 L 13-40 U/L Alanine Aminotransferase (ALT) 11 7-40 U/L Alkaline Phosphatase 74 46-116 U/L Total Protein 6.8 5.7-8.2 g/dL Albumin 3.9 3.2-4.8 g/dL Triglycerides Level 116 < 150 mg/dL Cholesterol Level 121 < 200 mg/dL LDL Cholesterol 79 < 100 mg/dL HDL Cholesterol 26 L 40-59 mg/dL Lipase 38 12-53 U/L Thyroid Stimulating Hormone (TSH) 1.12 0.55-4.78 uIU/mL Troponin I High Sensitivity 29 </=54 ng/L Urine Color Light-yellow Yellow Urine Clarity Clear Clear Urine pH 5.0 5.0-9.0 Urine Specific [place] 1.015 1.001-1.035 Urine Protein Trace H Negative Urine Ketones Negative Negative Urine Blood Negative Negative /uL Urine Nitrite Negative Negative Urine Bilirubin Negative Negative Urine Urobilinogen Normal Negative mg/dL Urine Leukocyte Esterase Negative Negative /uL Urine RBC 1 0 - 3 /hpf Urine Microscopic WBC 1 0-3 /HPF Urine Squamous Epithelial Cells None seen <5 /hpf Urine Bacteria None seen None Seen /hpf Urine Glucose Normal Normal mg/dL Hemoglobin A1c 5.9 H <5.7 % A1C Urine Opiates Screen Neg NEGATIVE Urine Fentanyl Screen Neg NEGATIVE Urine Barbiturates Screen Neg NEGATIVE Urine Phencyclidine Screen Neg NEGATIVE Urine Amphetamines Screen Neg NEGATIVE Urine Benzodiazepines Screen Neg NEGATIVE Urine Cocaine Screen Neg NEGATIVE Urine Cannabinoids Screen Neg NEGATIVE B-Type Natriuretic Peptide 659.32 0-100 pg/mL Assessment Chest pain, rule out progressive coronary artery disease. Severe coronary artery disease status post multiple PTCAs x4 NADINE (on Plavix and aspirin). Ischemic cardiomyopathy. Chronic HFrEF, NYHA class II. End-stage dilated cardiomyopathy. Nonsustained V-tach. Hypertension. Dyslipidemia. Obstructive sleep apnea with CPAP use at night. History prostate cancer status post chemotherapy. Remote history of polysubstance use. Morbid obesity. Plan/Recommendation I agree with your ongoing assessment and care of plan. Patient has been seen by Patricia Mccloud NP on my behalf, her and I discussed the plan with the patient. I reviewed transthoracic echocardiogram, pertinent lab values, and 12 lead electrocardiogram. A transthoracic echocardiogram reveals an EF of 5% with end-stage dilated cardio myopathy. Given the patient's clinical presentation, and comorbidities, ischemic workup should be considered. Given that this is a high-risk patient for this facility with EF of only 5%, consider transfer to higher level of care for further workup. Patient should also be evaluated at tertiary center for possible cardiac transplant. In the meantime, continue guideline medical therapy for CHF as tolerated. Continue with the patient's antiarrhythmic agent mexiletine. Continue with antiplatelet therapy and lipid-lowering agent. Close cardiac surveillance via telemetry monitoring. Notify Cardiology immediately for any ECG changes. Additional plan as per the hospital course. Plan discussed with: Patient NYHA Physical activity limitations: Class2(Slight)fatigue,sob Date of Service: Sep 05, 2025 Billing Provider: BECKY CASAREZ MD Cardiology Common Codes: 97936-[id number] INP/OBS CARE (High) Cardiology Consultation Codes: 50618-[id number] CONSULT <45MIN BECKY CASAREZ MD Sep 05, 2025 16:39
[2025-09-06] VITALS (8 sets, daily range): BP systolic 109–125; BP diastolic 74–98; PULSE 63–114; RESP 14–20; TEMP 97–98.7; O2SAT 97–99
[2025-09-06 05:32] LABS: Hematocrit 38.6 % (41.0-53.0); Hemoglobin 12.9 g/dL (13.5-17.5); Mean Corpuscular Hemoglobin 28.6 pg (28.0-32.0); Mean Corpuscular Volume 85.5 fL (80.0-100.0); Nucleated Red Blood Cells % 0.2 %
[2025-09-06 05:50] LABS: Alanine Aminotransferase 10 U/L (7-40); Albumin 3.8 g/dL (3.2-4.8); Alkaline Phosphatase 71 U/L (46-116); Anion Gap 9 (5-15); BUN/Creatinine Ratio 14.4 (10.0-20.0); Blood Urea Nitrogen 17 mg/dL (9-23); Calcium 9.1 mg/dL (8.7-10.4); Carbon Dioxide 30 mmol/L (20-31); Chloride 103 mmol/L (98-107); Glucose 103 mg/dL (74-106); Magnesium 2.2 mg/dL (1.6-2.6); Potassium 3.7 mmol/L (3.5-5.1); Sodium 142 mmol/L (136-145); Total Protein 6.5 g/dL (5.7-8.2)
[2025-09-06 05:51] LABS: Bilirubin, Total 0.8 mg/dL (0.2-1.0)
[2025-09-06] MEDS: PANTOPRAZOLE 40 MG TAB PO SCH (05:51)
[2025-09-06] MEDS: SPIRONOLACTONE 25 MG TAB PO SCH (09:43)
[2025-09-06] MEDS: SACUBITRIL-VALSARTAN 24mg/26mg TAB PO SCH (09:45)
--- NOTE | 2025-09-06 16:36 | DVHPNRES ---
Progress Note Date Seen: Sep 06, 2025 Resident Creating Document: MICHELLE EDMOND RESIDENT Medical Necessity Reason Pt with a Central, PICC or Fol: No Subjective Review of Systems 66-year-old male with extensive cardiac history including severe ischemic cardiomyopathy with reduced ejection fraction (last EF ~15%), status post biventricular ICD placement, multivessel coronary artery disease with multiple prior stents (last cardiac catheterization in 11/2021 showing patent stents), history of ventricular tachycardia, hypertension, and hyperlipidemia, who presents with worsening chest pain over the past two days. He reports intermittent chest discomfort in the past, however the pain has become more frequent and persistent. He describes the pain as a dull, pressure-like sensation located in the suprasternal region, non-radiating, associated with shortness of breath at rest. He denies syncope, palpitations, fever, cough, nausea, vomiting, or lower extremity pain. He follows with Dr. Posada in cardiology clinic and is compliant with his medications. Given his high-risk cardiac history, he is admitted for acute coronary syndrome evaluation and concern for possible heart failure exacerbation. Patient was seen today at bedside Labs and chart reviewed Denied acute chest pain no shortness of breaths Pending transferred to higher level of care to [facility], pending insurance Auth -was seen by Cardiology, Cardiology wrote- Given that this is a high-risk patient for this facility with EF of only 5%, consider transfer to higher level of care for further workup. . Patient should also be evaluated at tertiary center for possible cardiac transplant. Objective vital signs Vital Sign Date Time Temp Pulse Resp B/P (MAP) Pulse Ox O2 Delivery O2 Flow Rate FiO2 09/06/25 12:55 98.3 114 18 125/98 (107) 97 98.3 09/06/25 08:00 Room Air* 0 21 Total Intake and Output 09/05/25 09/05/25 09/06/25 15:00 23:00 07:00 Intake Total 960 ml 340 ml Output Total 125 ml Balance 960 ml 215 ml medications Current Medications Medications Dose Ordered Sig/Omayra Route Start Time Stop Time Status Last Admin Dose Admin Enoxaparin Sodium 40 mg DAILY SC 09/04/25 10:00 09/06/25 09:48 40 MG Aspirin 81 mg DAILY PO 09/04/25 10:00 09/06/25 09:44 81 MG Clopidogrel Bisulfate 75 mg DAILY PO 09/04/25 10:00 09/06/25 09:46 75 MG Furosemide 20 mg DAILY IV 09/04/25 10:00 09/06/25 09:42 20 MG Carvedilol 25 mg Q12HR PO 09/04/25 10:00 09/06/25 11:13 25 MG Empaglifozin 10 mg DAILY PO 09/04/25 10:00 09/06/25 09:45 10 MG Mexiletine HCl 150 mg BID PO 09/04/25 10:00 09/06/25 11:16 150 MG Atorvastatin Calcium 40 mg HS PO 09/04/25 22:00 09/05/25 21:45 40 MG Sacubitril/ Valsartan 1 tab BID PO 09/06/25 10:00 09/06/25 09:45 1 TAB Pantoprazole Sodium 40 mg DAILY@0600 PO 09/06/25 06:00 09/06/25 05:51 40 MG Spironolactone 25 mg DAILY PO 09/06/25 10:00 09/06/25 09:43 25 MG Polyethylene Glycol 17 gm DAILYPRN PRN PO 09/05/25 16:15 09/05/25 17:05 17 GM Examination General examination- awake, alert Coumadin HEENT- PEERLA, no acute nasal discharge Cardiovascular- S1-S2 audible, rate and rhythm regular, no murmur Respiratory- CTAB, no wheeze or rhonchi Gastrointestinal-nontender, bowel sound+. Nondistended Musculoskeletal-no acute joint swelling or tenderness or redness Lower extremity- no acute joint redness Neurological- cranial nerves intact, no acute dysarthria or dysphagia Psychiatry- denies depression or SI or HI Skin- no acute rash or purpura laboratory and microbiology Laboratory Tests 09/06/25 05:04 Test 09/06/25 05:04 Range/Units Serum Glucose 103 74-106 mg/dL Problem List/Assessment/Plan Problem List/Assessment/Plan Assessment and plan Rule out Acute coronary artery diseaase coronary artery disease Coronary artery disease status post multiple PTCAs x4 NADINE (on Plavix and aspirin) Acute on chronic systolic congestive heart failure (HFrEF, LVEF 5%) - s/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 Consulted cardiology: Recommends coronary angiography in [facility] due to complex history. High risk patient/ Continue with optimal medical therapy. -pending transferred to [facility], pending Auth confirmation Goals of care discussed with patient for over 18 minutes: Full code status. Discussed plan with Dr Gonzáles, patient and nurses: Current;y on telemetry status. Patient will benefit from evaluation in [facility] for eventual complex coronary angiography. PAtient agrees with ongoing plan. Plan discussed with: Patient, Spouse, Other (Nurses) Plan discussed with: Patient, Other (RN) Visit Coding STANDARD RES Billing Provider: JARVIS GOZNÁLES MD Date of Service if different f: Sep 06, 2025 Common Visit Codes: [id number] INP/OBS CARE(HIGH) MICHELLE EDMOND RESIDENT Sep 06, 2025 16:36
--- NOTE | 2025-09-06 19:26 | DVHPN2 ---
Progress Note - Dictate Date Seen: Sep 06, 2025 Medical Necessity Reason Pt with a Central, PICC or Fol: No Subjective Patient was seen and evaluated in follow up. Patient is complaining of chest pain.CM is arranging HLOC transfer. Telemetry reviewed. vital signs Vital Sign Date Time Temp Pulse Resp B/P (MAP) Pulse Ox O2 Delivery O2 Flow Rate FiO2 09/06/25 16:48 98.7 69 14 112/74 (87) 97 98.7 09/06/25 08:00 Room Air* 0 21 Total Intake and Output 09/05/25 09/05/25 09/06/25 15:00 23:00 07:00 Intake Total 960 ml 340 ml Output Total 125 ml Balance 960 ml 215 ml medications Current Medications Medications Dose Ordered Sig/Omayra Route Start Time Stop Time Status Last Admin Dose Admin Enoxaparin Sodium 40 mg DAILY SC 09/04/25 10:00 09/06/25 09:48 40 MG Aspirin 81 mg DAILY PO 09/04/25 10:00 09/06/25 09:44 81 MG Clopidogrel Bisulfate 75 mg DAILY PO 09/04/25 10:00 09/06/25 09:46 75 MG Furosemide 20 mg DAILY IV 09/04/25 10:00 09/06/25 09:42 20 MG Carvedilol 25 mg Q12HR PO 09/04/25 10:00 09/06/25 11:13 25 MG Empaglifozin 10 mg DAILY PO 09/04/25 10:00 09/06/25 09:45 10 MG Mexiletine HCl 150 mg BID PO 09/04/25 10:00 09/06/25 11:16 150 MG Atorvastatin Calcium 40 mg HS PO 09/04/25 22:00 09/05/25 21:45 40 MG Sacubitril/ Valsartan 1 tab BID PO 09/06/25 10:00 09/06/25 09:45 1 TAB Pantoprazole Sodium 40 mg DAILY@0600 PO 09/06/25 06:00 09/06/25 05:51 40 MG Spironolactone 25 mg DAILY PO 09/06/25 10:00 09/06/25 09:43 25 MG Polyethylene Glycol 17 gm DAILYPRN PRN PO 09/05/25 16:15 09/05/25 17:05 17 GM objective GENERAL: Alert and oriented x 3. No acute distress. Morbidly obese. EYES: PERRL, EOMI. Anicteric. HENT: Moist mucous membranes. LUNGS: Clear to auscultation bilaterally. CARDIOVASCULAR: Regular rate and rhythm. ABDOMEN: Soft, nontender and nondistended. EXTREMITIES: No edema. NEUROLOGIC: No focal neurological deficits. SKIN: Warm, dry. laboratory and microbiology Laboratory Tests 09/06/25 05:04 Test 09/06/25 05:04 Range/Units Serum Glucose 103 74-106 mg/dL Problem List Chest pain, rule out progressive coronary artery disease. Severe coronary artery disease status post multiple PTCAs x4 NADINE (on Plavix and aspirin). Ischemic cardiomyopathy. Chronic HFrEF, NYHA class II. End-stage dilated cardiomyopathy. Nonsustained V-tach. Hypertension. Dyslipidemia. Obstructive sleep apnea with CPAP use at night. History prostate cancer status post chemotherapy. Remote history of polysubstance use. Morbid obesity. Assessment/Plan Continued all current supportive medical care. Aspirin, Lipitor, Plavix. Coreg. DVT and GI prophylactics. Entresto. Additional plan as per the hospital course. Plan discussed with: Patient BECKY CASAREZ MD Sep 06, 2025 18:53
[2025-09-07] VITALS (8 sets, daily range): BP systolic 103–118; BP diastolic 65–92; PULSE 61–112; RESP 16–19; TEMP 97.6–98.9; O2SAT 96–100
[2025-09-07 07:31] LABS: Calcium 9.4 mg/dL (8.7-10.4); Chloride 103 mmol/L (98-107); Potassium 4.0 mmol/L (3.5-5.1); Sodium 144 mmol/L (136-145)
[2025-09-07 07:32] LABS: Anion Gap 13 (5-15); Carbon Dioxide 28 mmol/L (20-31)
[2025-09-07 07:37] LABS: BUN/Creatinine Ratio 14.8 (10.0-20.0); Blood Urea Nitrogen 21 mg/dL (9-23); Glucose 93 mg/dL (74-106)
[2025-09-07 07:38] LABS: Magnesium 2.4 mg/dL (1.6-2.6)
--- NOTE | 2025-09-07 10:44 | ECG ---
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
[2025-09-07] MEDS ORDERED: LACTULOSE 20Gm/30ML SOLN PO PRN (11:15)
[2025-09-07] MEDS: DOCUSATE SOD 100 MG CAP PO ONE (11:15)
--- NOTE | 2025-09-07 14:27 | DVHPN2 ---
Progress Note Date Seen: Sep 07, 2025 Medical Necessity Reason Pt with a Central, PICC or Fol: No Subjective Patient reports: Feels better Other Systems: pt seen with RN no chest pain pt had sob at bedside Objective vital signs Vital Sign Date Time Temp Pulse Resp B/P (MAP) Pulse Ox O2 Delivery O2 Flow Rate FiO2 09/07/25 13:30 97.6 63 18 104/68 (80) 99 97.6 09/07/25 08:00 Room Air* 0 21 Total Intake and Output 09/06/25 09/06/25 09/07/25 15:00 23:00 07:00 Intake Total 900 ml 300 ml Balance 900 ml 300 ml medications Current Medications Medications Dose Ordered Sig/Omayra Route Start Time Stop Time Status Last Admin Dose Admin Enoxaparin Sodium 40 mg DAILY SC 09/04/25 10:00 09/07/25 09:24 40 MG Aspirin 81 mg DAILY PO 09/04/25 10:00 09/07/25 09:25 81 MG Clopidogrel Bisulfate 75 mg DAILY PO 09/04/25 10:00 09/07/25 09:24 75 MG Furosemide 20 mg DAILY IV 09/04/25 10:00 09/07/25 09:24 20 MG Carvedilol 25 mg Q12HR PO 09/04/25 10:00 09/07/25 10:55 25 MG Empaglifozin 10 mg DAILY PO 09/04/25 10:00 09/07/25 09:25 10 MG Mexiletine HCl 150 mg BID PO 09/04/25 10:00 09/07/25 10:55 150 MG Atorvastatin Calcium 40 mg HS PO 09/04/25 22:00 09/06/25 21:30 40 MG Sacubitril/ Valsartan 1 tab BID PO 09/06/25 10:00 09/07/25 09:25 1 TAB Pantoprazole Sodium 40 mg DAILY@0600 PO 09/06/25 06:00 09/07/25 06:24 40 MG Spironolactone 25 mg DAILY PO 09/06/25 10:00 09/07/25 09:25 25 MG Polyethylene Glycol 17 gm DAILYPRN PRN PO 09/05/25 16:15 09/05/25 17:05 17 GM Docusate Sodium 100 mg BID PO 09/07/25 22:00 Lactulose 30 ml DAILYPRN PRN PO 09/07/25 11:15 Examination: GENERAL:Abnormal, HEENT:Abnormal, LUNGS:Abnormal, CVS:Abnormal, ABDOMEN:Abnormal laboratory and microbiology Laboratory Tests 09/07/25 05:52 09/06/25 05:04 Test 09/07/25 05:52 Range/Units Serum Glucose 93 74-106 mg/dL Problem List/Assessment/Plan Problem List/Assessment/Plan end stage ischemic CM hx of VTach hx of pci /cad obesity HTN HL ef is very low per dr carmen gutierrez and worse agree with plan for [facility] HF trops are- cont lasix and diuresis if stable tomorrow and not transferred, recommend outpt appt with [facility] HF i tried in past 1-2 years to send him to [facility] but he never followed up with them for vad/tx eval Plan discussed with: Patient Date of Service: Sep 07, 2025 Billing Provider: SIL GAMING MD Common Visit Codes: NOT BILLABLE SIL GAMING MD Sep 07, 2025 14:27
--- NOTE | 2025-09-07 15:51 | DVHPNRES ---
Progress Note Date Seen: Sep 07, 2025 Resident Creating Document: ALEXA OSHEA Medical Necessity Reason Pt with a Central, PICC or Fol: No Subjective Review of Systems 09/06/2025 Patient was seen today at bedside Labs and chart reviewed Denied acute chest pain no shortness of breaths Pending transferred to higher level of care to [facility], pending insurance Auth -was seen by Cardiology, Cardiology wrote- Given that this is a high-risk patient for this facility with EF of only 5%, consider transfer to higher level of care for further workup. . Patient should also be evaluated at tertiary center for possible cardiac transplant. 09/07/2025 Patient was seen today at the bedside. Labs and charts reviewed. Patient denied any acute chest pain or shortness of breath. Cardiology consult with Dr. Posada was patient is cardiologists, suggested to continue Lasix and diuresis, if stable tomorrow and not transferred, recommend outpatient appointment with [facility] HF. Objective vital signs Vital Sign Date Time Temp Pulse Resp B/P (MAP) Pulse Ox O2 Delivery O2 Flow Rate FiO2 09/07/25 13:30 97.6 63 18 104/68 (80) 99 97.6 09/07/25 08:00 Room Air* 0 21 Total Intake and Output 09/06/25 09/06/25 09/07/25 15:00 23:00 07:00 Intake Total 900 ml 300 ml Balance 900 ml 300 ml medications Current Medications Medications Dose Ordered Sig/Omayra Route Start Time Stop Time Status Last Admin Dose Admin Enoxaparin Sodium 40 mg DAILY SC 09/04/25 10:00 09/07/25 09:24 40 MG Aspirin 81 mg DAILY PO 09/04/25 10:00 09/07/25 09:25 81 MG Clopidogrel Bisulfate 75 mg DAILY PO 09/04/25 10:00 09/07/25 09:24 75 MG Furosemide 20 mg DAILY IV 09/04/25 10:00 09/07/25 09:24 20 MG Carvedilol 25 mg Q12HR PO 09/04/25 10:00 09/07/25 10:55 25 MG Empaglifozin 10 mg DAILY PO 09/04/25 10:00 09/07/25 09:25 10 MG Mexiletine HCl 150 mg BID PO 09/04/25 10:00 09/07/25 10:55 150 MG Atorvastatin Calcium 40 mg HS PO 09/04/25 22:00 09/06/25 21:30 40 MG Sacubitril/ Valsartan 1 tab BID PO 09/06/25 10:00 09/07/25 09:25 1 TAB Pantoprazole Sodium 40 mg DAILY@0600 PO 09/06/25 06:00 09/07/25 06:24 40 MG Spironolactone 25 mg DAILY PO 09/06/25 10:00 09/07/25 09:25 25 MG Polyethylene Glycol 17 gm DAILYPRN PRN PO 09/05/25 16:15 09/05/25 17:05 17 GM Docusate Sodium 100 mg BID PO 09/07/25 22:00 Lactulose 30 ml DAILYPRN PRN PO 09/07/25 11:15 Examination Pt is lying on bed General Appearance: Alert, Oriented X3, Cooperative, Not in acute distress HEENT: Atraumatic, Mucous membranes moist/pink Respiratory: Clear to auscultation, Normal air movement, No added sounds Cardiovascular: Regular rate, Normal S1, Normal S2, No murmurs Abdominal: Active bowel sounds, Soft, no distention, no tenderness Extremities: No edema, Normal pulses, No tenderness/swelling Skin: No Significant rash, except past surgical scars Neuro: Normal speech, sensorimotor deficits none Psych/Mental Status: Mental status NL, Mood NL Nurse was there as shim plug cutter during examination laboratory and microbiology Laboratory Tests 09/07/25 05:52 09/06/25 05:04 Test 09/07/25 05:52 Range/Units Serum Glucose 93 74-106 mg/dL Labs and/or images reviewed: Labs reviewed by me, Image(s) reviewed by me Problem List/Assessment/Plan Problem List/Assessment/Plan Assessment #Acute on chronic systolic congestive heart failure (HFrEF, LVEF 5%) - 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 -Continue with optimal medical therapy. -pending transferred to [facility], pending Auth confirmation -Cardiology consult suggested continuation of Lasix and diuresis, if stable tomorrow and not transferred recommend outpatient appointment Goals of care discussed with the patient for more than 27 minutes: Full code status Case discussed with Dr. Gonzáles, patient and nurse. Goals of care discussed with patient for over 18 minutes: Full code status. Plan discussed with: Patient Visit Coding STANDARD RES Billing Provider: JARVIS GONZÁLES MD Date of Service if different f: Sep 07, 2025 Common Visit Codes: [id number] INP/OBS CARE(HIGH) ALEXA OSHEA RESIDENT Sep 07, 2025 15:51 NAZ SAWYER RESIDENT Sep 08, 2025 06:58 JARVIS GONZÁLES MD Sep 08, 2025 18:49
[2025-09-07] MEDS: DOCUSATE SOD 100 MG CAP PO SCH (21:41)
--- NOTE | 2025-09-08 00:34 | DVHPN2 ---
Progress Note - Dictate Date Seen: Sep 07, 2025 Medical Necessity Reason Pt with a Central, PICC or Fol: No Subjective Patient was seen and evaluated in follow up. Patient reports feeling better. Denies any chest pain. Awaiting for transfer to [facility]. 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 Telemetry reviewed. vital signs Vital Sign Date Time Temp Pulse Resp B/P (MAP) Pulse Ox O2 Delivery O2 Flow Rate FiO2 09/07/25 21:38 79 103/65 09/07/25 20:53 98.9 18 97 98.9 09/07/25 08:00 Room Air* 0 21 Total Intake and Output 09/07/25 09/07/25 09/08/25 15:00 23:00 07:00 Intake Total 1000 ml Balance 1000 ml medications Current Medications Medications Dose Ordered Sig/Omayra Route Start Time Stop Time Status Last Admin Dose Admin Enoxaparin Sodium 40 mg DAILY SC 09/04/25 10:00 09/07/25 09:24 40 MG Aspirin 81 mg DAILY PO 09/04/25 10:00 09/07/25 09:25 81 MG Clopidogrel Bisulfate 75 mg DAILY PO 09/04/25 10:00 09/07/25 09:24 75 MG Furosemide 20 mg DAILY IV 09/04/25 10:00 09/07/25 09:24 20 MG Carvedilol 25 mg Q12HR PO 09/04/25 10:00 09/07/25 21:38 25 MG Empaglifozin 10 mg DAILY PO 09/04/25 10:00 09/07/25 09:25 10 MG Mexiletine HCl 150 mg BID PO 09/04/25 10:00 09/07/25 21:38 150 MG Atorvastatin Calcium 40 mg HS PO 09/04/25 22:00 09/07/25 21:38 40 MG Sacubitril/ Valsartan 1 tab BID PO 09/06/25 10:00 09/07/25 21:38 1 TAB Pantoprazole Sodium 40 mg DAILY@0600 PO 09/06/25 06:00 09/07/25 06:24 40 MG Spironolactone 25 mg DAILY PO 09/06/25 10:00 09/07/25 09:25 25 MG Polyethylene Glycol 17 gm DAILYPRN PRN PO 09/05/25 16:15 09/05/25 17:05 17 GM Docusate Sodium 100 mg BID PO 09/07/25 22:00 Lactulose 30 ml DAILYPRN PRN PO 09/07/25 11:15 objective GENERAL: Alert and oriented x 3. No acute distress. Morbidly obese. EYES: PERRL, EOMI. Anicteric. HENT: Moist mucous membranes. LUNGS: Clear to auscultation bilaterally. CARDIOVASCULAR: Regular rate and rhythm. ABDOMEN: Soft, nontender and nondistended. EXTREMITIES: No edema. NEUROLOGIC: No focal neurological deficits. SKIN: Warm, dry. laboratory and microbiology Laboratory Tests 09/07/25 05:52 09/06/25 05:04 Test 09/07/25 05:52 Range/Units Serum Glucose 93 74-106 mg/dL Problem List Chest pain, rule out progressive coronary artery disease. Severe coronary artery disease status post multiple PTCAs x4 NADINE (on Plavix and aspirin). Ischemic cardiomyopathy. Chronic HFrEF, NYHA class II. End-stage dilated cardiomyopathy. Nonsustained V-tach. Hypertension. Dyslipidemia. Obstructive sleep apnea with CPAP use at night. History prostate cancer status post chemotherapy. Remote history of polysubstance use. Morbid obesity. Assessment/Plan Continued all current supportive medical care. Aspirin, Lipitor, Plavix. Coreg. DVT and GI prophylactics. Entresto. Additional plan as per the hospital course. Plan discussed with: Patient BECKY CASAREZ MD Sep 08, 2025 00:34
[2025-09-08 01:00] VITALS: BP 105/64; PULSE 66; RESP 18; TEMP 97.6; O2SAT 99
[2025-09-08 05:00] VITALS: BP 112/81; PULSE 104; RESP 18; TEMP 98.1; O2SAT 99
[2025-09-08 05:23] LABS: Hematocrit 43.4 % (41.0-53.0); Hemoglobin 14.3 g/dL (13.5-17.5); Mean Corpuscular Hemoglobin 28.4 pg (28.0-32.0); Mean Corpuscular Volume 86.0 fL (80.0-100.0); Nucleated Red Blood Cells % 0.0 %
[2025-09-08 05:47] LABS: Chloride 103 mmol/L (98-107); Potassium 4.0 mmol/L (3.5-5.1); Sodium 142 mmol/L (136-145)
[2025-09-08 05:48] LABS: Anion Gap 10 (5-15); Calcium 9.4 mg/dL (8.7-10.4); Carbon Dioxide 29 mmol/L (20-31)
[2025-09-08 05:58] LABS: Glucose 110 mg/dL (74-106)
[2025-09-08 06:09] LABS: BUN/Creatinine Ratio 12.6 (10.0-20.0); Blood Urea Nitrogen 17 mg/dL (9-23)
[2025-09-08 08:00] VITALS: PULSE 71; RESP 18; O2SAT 97
[2025-09-08 09:00] VITALS: BP 119/69; PULSE 107; RESP 20; TEMP 98.1; O2SAT 99
[2025-09-08] MEDS: ERGOCALCIFEROL 50,000 UNIT(1.25MG) CAP PO SCH (09:33)
[2025-09-08 13:00] VITALS: BP 113/81; PULSE 60; RESP 20; TEMP 97.7; O2SAT 97
[2025-09-08] MEDS ORDERED: ASPI-325 PO (16:17)
[2025-09-08] MEDS ORDERED: ATOR20TA50 PO (16:17)
[2025-09-08] MEDS ORDERED: MEX150C PO (16:17)
[2025-09-08] MEDS ORDERED: CARV-216 PO (16:17)
[2025-09-08] MEDS ORDERED: EMPA1TAB PO (16:17)
[2025-09-08] MEDS ORDERED: ERGO1CAP23 PO (16:17)
[2025-09-08] MEDS ORDERED: DOCU-265 PO (16:17)
[2025-09-08] MEDS ORDERED: SACU1TAB PO (16:17)
[2025-09-08] MEDS ORDERED: PANT40T PO (16:17)
[2025-09-08] MEDS ORDERED: SPIR25TA PO (16:17)
[2025-09-08] MEDS ORDERED: LACT10SO3 PO (16:17)
[2025-09-08] MEDS ORDERED: CLOP75TA70 PO (16:17)
--- NOTE | 2025-09-08 16:28 | DVHDSRES ---
Discharge Summary Date of Admission Resident Creating Document: ALEXA OSHEA RESIDENT Sep 04, 2025 at 09:47 Date of Discharge: Sep 08, 2025 Admitting Diagnosis Chest Pain Labs/Diagnostic Data: Laboratory Results Test 09/08/25 04:56 09/07/25 05:52 09/06/25 05:04 09/05/25 09:19 White Blood Count 4.1 10^3/uL (4.4-10.8) Red Blood Count 5.04 10^6/uL (4.5-5.90) Hemoglobin 14.3 g/dL (13.5-17.5) Hematocrit 43.4 % (41.0-53.0) Mean Corpuscular Volume 86.0 fL (80.0-100.0) Mean Corpuscular Hemoglobin 28.4 pg (28.0-32.0) Mean Corpuscular Hemoglobin Concent 33.0 g/dL (32.0-36.0) Red Cell Distribution Width 13.9 % (11.8-14.3) Platelet Count 279 10^3/uL (140-450) Mean Platelet Volume 7.1 fL (6.9-10.8) Neutrophils (%) (Auto) 64.7 % (37.0-80.0) Lymphocytes (%) (Auto) 14.4 % (10.0-50.0) Monocytes (%) (Auto) 10.7 % (0.0-12.0) Eosinophils (%) (Auto) 9.9 % (0.0-7.0) Basophils (%) (Auto) 0.3 % (0.0-2.0) Neutrophils # (Auto) 2.6 10 ^3/uL (1.6-8.6) Lymphocytes # (Auto) 0.6 10 ^3/uL (0.4-5.4) Monocytes # (Auto) 0.4 10 ^3/uL (0-1.3) Eosinophils # (Auto) 0.4 10 ^3/uL (0-0.8) Basophils # (Auto) 0 10 ^3/uL (0-0.2) Nucleated Red Blood Cells 0.0 % Sodium Level 142 mmol/L (136-145) Potassium Level 4.0 mmol/L (3.5-5.1) Chloride Level 103 mmol/L (98-107) Carbon Dioxide Level 29 mmol/L (20-31) Anion Gap 10 (5-15) Blood Urea Nitrogen 17 mg/dL (9-23) Creatinine 1.35 mg/dL (0.700-1.30) Glomerular Filtration Rate Calc 59 mL/min (>90) BUN/Creatinine Ratio 12.6 (10.0-20.0) Serum Glucose 110 mg/dL (74-106) Calcium Level 9.4 mg/dL (8.7-10.4) Magnesium Level 2.4 mg/dL (1.6-2.6) Total Bilirubin 0.8 mg/dL (0.2-1.0) Aspartate Amino Transferase (AST) 13 U/L (13-40) Alanine Aminotransferase (ALT) 10 U/L (7-40) Alkaline Phosphatase 71 U/L (46-116) Total Protein 6.5 g/dL (5.7-8.2) Albumin 3.8 g/dL (3.2-4.8) Prothrombin Time 11.4 sec (9.3-11.8) Prothrombin Time INR 1.08 (0.9-1.15) Activated Partial Thromboplast Time 27.1 SEC (24.5-34.5) Lactic Acid Level 0.9 mmol/L (0.4-2.0) Phosphorus Level 3.1 mg/dL (2.4-5.1) Triglycerides Level 116 mg/dL (< 150) Cholesterol Level 121 mg/dL (< 200) LDL Cholesterol 79 mg/dL (< 100) HDL Cholesterol 26 mg/dL (40-59) Lipase 38 U/L (12-53) Vitamin B12 Level 405 pg/mL (211-911) Vitamin D 25-Hydroxy 16.9 ng/mL (30.0-100) Thyroid Stimulating Hormone (TSH) 1.12 uIU/mL (0.55-4.78) Test 09/04/25 14:45 09/04/25 09:47 09/04/25 08:13 Troponin I High Sensitivity 29 ng/L (</=54) Urine Color Light-yellow (Yellow) Urine Clarity Clear (Clear) Urine pH 5.0 (5.0-9.0) Urine Specific [place] 1.015 (1.001-1.035) Urine Protein Trace (Negative) Urine Ketones Negative (Negative) Urine Blood Negative /uL (Negative) Urine Nitrite Negative (Negative) Urine Bilirubin Negative (Negative) Urine Urobilinogen Normal mg/dL (Negative) Urine Leukocyte Esterase Negative /uL (Negative) Urine RBC 1 /hpf (0 - 3) Urine Microscopic WBC 1 /HPF (0-3) Urine Squamous Epithelial Cells None seen /hpf (<5) Urine Bacteria None seen /hpf (None Seen) Urine Glucose Normal mg/dL (Normal) Hemoglobin A1c 5.9 % A1C (<5.7) Urine Opiates Screen Neg (NEGATIVE) Urine Fentanyl Screen Neg (NEGATIVE) Urine Barbiturates Screen Neg (NEGATIVE) Urine Phencyclidine Screen Neg (NEGATIVE) Urine Amphetamines Screen Neg (NEGATIVE) Urine Benzodiazepines Screen Neg (NEGATIVE) Urine Cocaine Screen Neg (NEGATIVE) Urine Cannabinoids Screen Neg (NEGATIVE) B-Type Natriuretic Peptide 659.32 pg/mL (0-100) Other Laboratory Tests 09/08/25 04:56 Brief Hx & Hospital Course: Brief history of hospitalization: 66-year-old male with extensive cardiac history including severe coronary artery disease S/p multiple PTCAs x 4 NADINE (on ASA and Plavix), ischemic cardiomyopathy, congestive heart failure, presence of MANAGER DIGITAL-D ([employer]), V-tach, hypertension, dyslipidemia, obstructive sleep apnea with CPAP use at night, gastritis, irritable bowel syndrome, prostate cancer status post chemotherapy, remote history of polysubstance abuse and morbid obesity came to this facility with chest pain. Cardiology was consulted and on board. A repeat echo showed ejection fraction of 5%, and given that the patient was high risk he was considered for transfer to higher level of care for further workup for possible cardiac transplantation. We continued the patient on his home medications , including GDMT therapy and antiarrhythmic agent mexiletine. Telemetry monitoring was done during hospitalization. Patient reported the chest pain got better during hospitalization and shortness of breaths decreased. He is currently stable and is being discharged and he has been asked to follow up outpatient to [facility]. Pt is lying on bed General Appearance: Alert, Oriented X3, Cooperative, Not in acute distress HEENT: Atraumatic, Mucous membranes moist/pink Respiratory: Clear to auscultation, Normal air movement, No added sounds Cardiovascular: Regular rate, Normal S1, Normal S2, No murmurs Abdominal: Active bowel sounds, Soft, no distention, no tenderness Extremities: No edema, Normal pulses, No tenderness/swelling Skin: No Significant rash, except past surgical scars Neuro: Normal speech, sensorimotor deficits none Psych/Mental Status: Mental status NL, Mood NL Nurse was there as financial aid advisor during examination Operations or Procedures CXR IMPRESSION: NO ACUTE CARDIOPULMONARY PROCESS. ECHO EXAM: Two-dimensional and M-mode echocardiogram with Doppler and color Doppler. Blood Pressure: 138/85 mmHg INDICATION Chest Pain RISK FACTORS Height: 5' 9", Weight: 220 DIMENSIONS LVDd 6.9 (3.8-5.7cm) LA (2D) 5.0 (1.9-4.0cm) Aortic Root 3.5 (2.0- 3.7cm) LVDs 6.8 (2.5-4.0cm) LA (MM) (1.9-4.0cm) Aortic Cusp Exc 1.9 (1.5- 2.0cm) EF (%) 5.0 (55-70%) Rt. Atrium 4.5 (1.9-4.0cm) Asc. Aorta cm IVSd 0.8 (0.7-1.1cm) RV (D) (1.8-2.4cm) PWd 0.9 (0.7-1.1cm) Mitral Valve Mitral Mitral Stenosis E wave 1.00m/s MV Mean GR. mmHg A wave 0.40m/s MV Peak GR. mmHg E/A ratio 2.5 2D MVA cm2 Aortic Valve Aortic Valve Aortic Stenosis V1 0.40m/s AO Mean GR. 4mmHg V2 1.30m/s AO Peak GR. 7mmHg LVOT Diameter 2.7 (1.8-2.4cm) Doppler SAMUEL 1.76cm2 Conclusion LV EF IS ONLY 5% AND IS REMARKABLY REDUCED END STAGE DILATED CARDIOMYOPATHY SEVERE GLOBAL HYPOKINESIS OF ALL CARDIAC CHAMBERS NORMAL VALVES NO EFFUSION SIGNED BY: BECKY CASAREZ MD SIGNED DATE/TIME: 09/04/252121 Condition at Discharge: Guarded Final Diagnosis/Problems List #End stage ischemic cardiomyopathy (HFrEF 5%), requires coronary angiography with left ventricular assistance #Acute on chronic systolic congestive heart failure (HFrEF, LVEF 5%) - s/p MANAGER DIGITAL-d placement #Coronary artery disease status post multiple PTCAs x4 NADINE (on Plavix and aspirin) #Nonsustained V-tach #Hypertension #Dyslipidemia #Obstructive sleep apnea with CPAP use at night #Questionable Hyperthyroidism #History prostate cancer s/p/ chemotherapy #Obesity, BMI 37.7 Discharge Disposition: Home Discharge Instruct/Medications Diet: Cardiac 2g Na,low cholest Activity: Bed rest Follow Up/Referral: Follow up at [facility] as outpatient as soon as possible as per cardiology recommendation Medications: Per EMR Scheduled Aspirin (Aspir-Low), 81 MG PO DAILY Aspirin (Aspirin Low Dose), 81 MG PO DAILY Atorvastatin Calcium (Atorvastatin Calcium), 40 MG PO HS Carvedilol (Carvedilol), 25 MG PO Q12HR, (Reported) Carvedilol (Coreg), 25 MG PO Q12HR Clopidogrel Bisulfate (Plavix), 1 TAB PO DAILY Clopidogrel Bisulfate (Clopidogrel), 75 MG PO DAILY Docusate Sodium (Docusate Sodium), 100 MG PO BID Empagliflozin (Jardiance), 10 MG PO DAILY Empagliflozin (Jardiance), 10 MG PO DAILY Ergocalciferol (Vitamin D 37179 Unit), 50,000 UNIT PO Q7D Furosemide (Furosemide), 20 MG PO DAILY Mexiletine Hcl (Mexiletine Hcl), 1 CAP PO BID, (Reported) Mexiletine Hcl (Mexiletine Hcl), 150 MG PO BID Nitroglycerin (Ntrostat Sublingual), 0.4 MG SL PRN, (Reported) Pantoprazole Sodium Sesquihydr (Pantoprazole Sodium), 40 MG PO DAILY@0600 Sacubitril-Valsartan (Entresto 49-51 mg), 1 TAB PO BID, (Reported) Sacubitril-Valsartan (Entresto 24-26 mg), 1 TAB PO BID Simvastatin (Simvastatin), 40 MG PO DAILY Spironolactone (Aldactone), 25 MG PO DAILY Scheduled PRN Lactulose (Lactulose), 30 ML PO DAILYPRN PRN Discontinued Medications Sildenafil Citrate (Viagra), 100 MG PO 2XW PRN for for sexual activity, (Reported) Discharge Statement: "Patient was advised to return to the ER or call 911 if any headaches, dizziness, shortness of breath, chest pain, abdominal pain, bleeding, fevers, or worsening of medical condition. Patient was counseled about treatment plan, medications, possible side effects, patientverbalized understanding. All questions were answered to the best of my ability. This discharge took greater then 30 minutes in planning, reviewing documentation, counseling the patient, and discussing with other team members." ASSESSMENT ASSESSMENT Assessment End stage ischemic cardiomyopathy (HFrEF 5%), requires coronary angiography with left ventricular assistance Visit Coding STANDARD RES Billing Provider: JARVIS ANGELES MD Date of Service if different f: Sep 08, 2025 Common Visit Codes: 28072-XXE/OBS DISCH DAY >30min ALEXA OSHEA RESIDENT Sep 08, 2025 16:28 JARVIS ANGELES MD Sep 08, 2025 18:38
[2025-09-08 16:45] VITALS: BP 93/64; PULSE 68; RESP 18; TEMP 98; O2SAT 100
--- NOTE | 2025-09-08 23:16 | DVHPN2 ---
Progress Note - Dictate Date Seen: Sep 08, 2025 Medical Necessity Reason Pt with a Central, PICC or Fol: No Subjective Patient was seen and evaluated in follow up. Patient has no new complaints at this time. Patient denies any cardiac symptoms. Patient is cardiac stable for discharge. Telemetry reviewed. vital signs Vital Sign Date Time Temp Pulse Resp B/P (MAP) Pulse Ox O2 Delivery O2 Flow Rate FiO2 09/08/25 09:35 119/69 09/08/25 09:34 107 09/08/25 09:00 98.1 20 99 98.1 09/07/25 20:00 Room Air* 0 21 Total Intake and Output 09/07/25 09/07/25 09/08/25 15:00 23:00 07:00 Intake Total 1000 ml 100 ml Output Total 500 ml Balance 1000 ml -400 ml medications Current Medications Medications Dose Ordered Sig/Omayra Route Start Time Stop Time Status Last Admin Dose Admin Enoxaparin Sodium 40 mg DAILY SC 09/04/25 10:00 09/08/25 09:36 40 MG Aspirin 81 mg DAILY PO 09/04/25 10:00 09/08/25 09:36 81 MG Clopidogrel Bisulfate 75 mg DAILY PO 09/04/25 10:00 09/08/25 09:35 75 MG Furosemide 20 mg DAILY IV 09/04/25 10:00 09/08/25 09:35 20 MG Carvedilol 25 mg Q12HR PO 09/04/25 10:00 09/08/25 09:34 25 MG Empaglifozin 10 mg DAILY PO 09/04/25 10:00 09/08/25 09:35 10 MG Mexiletine HCl 150 mg BID PO 09/04/25 10:00 09/08/25 09:34 150 MG Atorvastatin Calcium 40 mg HS PO 09/04/25 22:00 09/07/25 21:38 40 MG Sacubitril/ Valsartan 1 tab BID PO 09/06/25 10:00 09/08/25 09:34 1 TAB Pantoprazole Sodium 40 mg DAILY@0600 PO 09/06/25 06:00 09/08/25 06:40 40 MG Spironolactone 25 mg DAILY PO 09/06/25 10:00 09/08/25 09:34 25 MG Polyethylene Glycol 17 gm DAILYPRN PRN PO 09/05/25 16:15 09/05/25 17:05 17 GM Docusate Sodium 100 mg BID PO 09/07/25 22:00 Lactulose 30 ml DAILYPRN PRN PO 09/07/25 11:15 Ergocalciferol 50,000 unit Q7D PO 09/08/25 08:30 09/08/25 09:33 50,000 UNIT objective GENERAL: Alert and oriented x 3. No acute distress. Morbidly obese. EYES: PERRL, EOMI. Anicteric. HENT: Moist mucous membranes. LUNGS: Clear to auscultation bilaterally. CARDIOVASCULAR: Regular rate and rhythm. ABDOMEN: Soft, nontender and nondistended. EXTREMITIES: No edema. NEUROLOGIC: No focal neurological deficits. SKIN: Warm, dry. laboratory and microbiology Laboratory Tests 09/08/25 04:56 Test 09/08/25 04:56 Range/Units Serum Glucose 110 H 74-106 mg/dL Problem List Chest pain, rule out progressive coronary artery disease. Severe coronary artery disease status post multiple PTCAs x4 NADINE (on Plavix and aspirin). Ischemic cardiomyopathy. Chronic HFrEF, NYHA class II. End-stage dilated cardiomyopathy. Nonsustained V-tach. Hypertension. Dyslipidemia. Obstructive sleep apnea with CPAP use at night. History prostate cancer status post chemotherapy. Remote history of polysubstance use. Morbid obesity. Assessment/Plan Continued all current supportive medical care. Aspirin, Lipitor, Plavix. Coreg. DVT and GI prophylactics. Entresto. Additional plan as per the hospital course. Plan discussed with: Patient BECKY CASAREZ MD Sep 08, 2025 13:43
== END 2025-09-08 17:00 | disposition home or self-care (01) | DRG 291 ==
LOC: ER 07:52 → OVERFLOW 09:47 → TELE-EAST 13:27
PROVIDERS: ADMIT Internal Medicine Geriatric Medicine; ATTEND Internal Medicine Geriatric Medicine
DX: I11.0 Hypertensive heart disease with heart failure (principal); I50.23 Acute on chronic systolic (congestive) heart failure; I38 Endocarditis, valve unspecified; I47.20 Ventricular tachycardia, unspecified; E66.01 Morbid (severe) obesity due to excess calories; I42.0 Dilated cardiomyopathy; E78.5 Hyperlipidemia, unspecified; G47.33 Obstructive sleep apnea (adult) (pediatric); I25.10 Atherosclerotic heart disease of native coronary artery without angina pectoris; I25.5 Ischemic cardiomyopathy; Z79.82 Long term (current) use of aspirin; Z79.899 Other long term (current) drug therapy; Z82.49 Family history of ischemic heart disease and other diseases of the circulatory system; Z87.891 Personal history of nicotine dependence; Z95.810 Presence of automatic (implantable) cardiac defibrillator; Z95.5 Presence of coronary angioplasty implant and graft; Z85.46 Personal history of malignant neoplasm of prostate; Z92.21 Personal history of antineoplastic chemotherapy; Z82.3 Family history of stroke; Z83.3 Family history of diabetes mellitus; Z68.37 Body mass index [BMI] 37.0-37.9, adult; Z80.42 Family history of malignant neoplasm of prostate
CPT/HCPCS: 36415; 71045; 80048; 80053; 80061; 80307; 81001; 82306; 82607; 83036; 83605; 83690; 83735; 83880; 84100; 84443; 84484; 85025; 85610; 85730; 93005; 93306; G0378